=== PATIENT | male | born 1935 | race Caucasian/White ===

== ENCOUNTER 2017-07-01 07:04 | Day surgery (SDC) | payer MEDICARE ==
[~2017-07-01 07:04] MED LIST: Lactated Ringers 1,000 ML IV SCH; Lidocaine 1%/Sod Bicarbonate in NS 8.4% 1 ML Syringe IV PRN; Sodium Chloride 0.9% 10 ML Syringe FLUSH PRN
[2017-07-01] MEDS ORDERED: Propofol 200 MG/20 ML SDV ONE (07:25)
[2017-07-01] MEDS ORDERED: Lidocaine 1% 4 ML ONE (07:26)
--- NOTE | 2017-07-01 07:47 | PCM.PREANE ---
Preanesthetic Assessment - Procedure Proposed Procedure: Colonoscopy - Anesthesia/Transfusion/Family Hx Anesthesia History: Prior Anesthesia Without Reaction Family History of Anesthesia Reaction: No Transfusion History: Unknown Intubation History: Unknown - Review of Systems General: No Symptoms Pulmonary: No Symptoms Cardiovascular: No Symptoms Gastrointestinal: No Symptoms Neurological: Numbness (hands and feet ) Other: Reports: Diabetes (BS 115 ) - Physical Assessment NPO Status Date: 06/30/17 NPO Status Time: 22:00 Pulse: 78 O2 Sat by Pulse Oximetry: 97 Respiratory Rate: 16 Blood Pressure: 130/61 Temperature: 37.1 C Vital Signs: Last Vital Signs Temp 37.1 C 07/01/17 07:20 Pulse 78 07/01/17 07:20 Resp 16 07/01/17 07:20 BP 130/61 07/01/17 07:20 Pulse Ox 97 07/01/17 07:20 Height: 1.7 m Weight: 114.305 kg ASA Class: 2 Mental Status: Alert & Oriented x3 Dentition: Reports: Dentures (upper ), Missing Tooth/Teeth (poor dentition lower ), Caries Thyro-Mental Finger Breadths: 3 Mouth Opening Finger Breadths: 3 ROM/Head Extension: Full Lungs: Clear to Auscultation, Normal Respiratory Effort Cardiovascular: Regular Rate, Regular Rhythm - Allergies Allergies/Adverse Reactions: Allergies Allergy/AdvReac Type Severity Reaction Status Date / Time amiodarone Allergy Cannot Verified 06/27/17 16:14 Remember lisinopril [From Prinivil] Allergy Cannot Verified 06/27/17 16:14 Remember metformin Allergy Cannot Verified 06/27/17 16:14 Remember - Acknowledgements Anesthesia Type Planned: MAC Pt an Appropriate Candidate for the Planned Anesthesia: Yes Alternatives and Risks of Anesthesia Discussed w Pt/Guardian: Yes Pt/Guardian Understands and Agrees with Anesthesia Plan: Yes PreAnesthesia Questionnaire HEENT History: Reports: Hard of Hearing, Impaired Vision, Other (See Below) Other HEENT History: left ear hard of hearing, wears glasses, has hearing aids and dentures Cardiovascular History: Reports: CAD, High Cholesterol, Hypertension, Other ( See Below) Other Cardiovascular History: chest pain/costochondral pain, diastolic dysfunction Respiratory History: Reports: Sleep Apnea Gastrointestinal History: Reports: Gastritis, Hemorrhoids Genitourinary History: Reports: BPH, Other (See Below) Other Genitourinary History: hematuria TRIMMER SAWYER History: Reports: None Musculoskeletal History: Reports: Gout Neurological History: Reports: CVA Psychiatric History: Reports: None Endocrine/Metabolic History: Reports: Diabetes, Type II Hematologic History: Reports: None Immunologic History: Reports: None Oncologic (Cancer) History: Reports: None Dermatologic History: - Past Surgical History Head Surgeries/Procedures: Reports: None Cardiovascular Surgical History: Reports: Coronary Artery Bypass Respiratory Surgical History: Reports: None GI Surgical History: Reports: Colonoscopy, Hernia Repair/Other Female Surgical History: Reports: None Male Surgical History: Reports: None Endocrine Surgical History: Reports: None Musculoskeletal Surgical History: Reports: Other (See Below) Other Musculoskeletal Surgeries/Procedures:: knee arthroscopy x 2 Dermatological Surgical History: Reports: Skin Graft - SUBSTANCE USE Smoking Status *Q: Never Smoker Second Hand Smoke Exposure: No Days Per Week of Alcohol Use: 0 Recreational Drug Use History: No - HOME MEDS Home Medications: Home Meds Allopurinol [Zyloprim] 300 mg PO DAILY 10/18/14 [History] Clopidogrel [Plavix] 75 mg PO DAILY 10/18/14 [History] Furosemide [Lasix] 80 mg PO BID 10/18/14 [History] Insulin Aspart [NovoLOG] 10 unit SUBCUT KAYLA 10/18/14 [History] Insulin Aspart [NovoLOG] 24 unit SUBCUT PCDINNER 10/18/14 [History] Insulin Aspart [NovoLOG] 28 unit SUBCUT BRK 10/18/14 [History] Insulin Glarg,Human.Rec.Analog [Lantus] 44 unit SUBCUT BID 10/18/14 [History] Losartan [Cozaar] 12.5 mg PO DAILY 10/18/14 [History] Metoprolol Tartrate [Lopressor] 25 mg PO BID 10/18/14 [History] Naproxen Sodium [Aleve] 220 mg PO DAILY PRN 10/18/14 [History] Potassium Chloride [Klor-Con] 20 meq PO BID 10/18/14 [History] Tamsulosin HCl [Flomax] 0.4 mg PO DAILY 10/18/14 [History] Nitroglycerin [Nitrostat] 0.4 mg SL Q5M PRN 11/02/14 [History] Sennosides/Docusate Sodium [Senna-Docusate Sodium Tablet] 2 tab PO BEDTIME 11/02 [History] Cholecalciferol (Vitamin D3) [Vitamin D3] 1,000 unit PO DAILY 06/27/17 [History] Hydrocortisone Acetate 25 mg RECTAL BEDTIME 06/27/17 [History] Isosorbide Mononitrate [Imdur] 30 mg PO DAILY 06/27/17 [History] Metolazone [Metolazone] 2.5 mg PO MOWEFR 06/27/17 [History] Simvastatin [Zocor] 40 mg PO DAILY 06/27/17 [History] Spironolactone [Aldactone] 25 mg PO QAM 06/27/17 [History] - CURRENT (IN HOUSE) MEDS Current Meds: Current Medications Lactated Ringer's (Ringers, Lactated) 1,000 mls @ 125 mls/hr IV ASDIRECTED PHILIP Stop: 07/01/17 23:00 Lidocaine/Sodium Bicarbonate (Buffered Lidocaine 1% In Ns 8.4%) 0.25 ml IV ONETIME PRN PRN Reason: Prior to IV Start Stop: 07/01/17 18:00 Sodium Chloride (Saline Flush) 10 ml FLUSH ASDIRECTED PRN PRN Reason: Keep Vein Open Stop: 07/01/17 18:00 Discontinued Medications Lidocaine HCl (Xylocaine-Mpf 1%) Confirm Administered Dose 4 mls @ as directed .ROUTE .STK-MED ONE Stop: 07/01/17 07:27 Propofol (Diprivan 20 Ml) Confirm Administered Dose 200 mg .ROUTE .STK-MED ONE Stop: 07/01/17 07:26
--- NOTE | 2017-07-01 08:04 | PCM.SN ---
- Free Text/Narrative Note: Addendum TO preop note: Mallampati Score 4 ASA should read :3
[2017-07-01] MEDS ORDERED: Phenylephrine/Normal Saline 100 MCG/ML 10 ML Syringe ONE (08:21)
--- NOTE | 2017-07-01 08:46 | PCM.OPNOTE ---
- General Post-Op/Procedure Note Date of Surgery/Procedure: 07/01/17 Operative Procedure(s): colonosocopy to cecum with hemorrhoid banding times 2 Pre Op Diagnosis: rectal bleeding Post-Op Diagnosis: Same Anesthesia Technique: MAC Primary Surgeon: Carlos Valentino EBL in mLs: 0 Complications: None Condition: Good
--- NOTE | 2017-07-01 08:50 | PCM48HPAN ---
Post Anesthesia Note - EVALUATION WITHIN 48HRS OF ANESTHETIC Vital Signs in Normal Range: Yes Patient Participated in Evaluation: Yes Respiratory Function Stable: Yes Airway Patent: Yes Cardiovascular Function Stable: Yes Hydration Status Stable: Yes Pain Control Satisfactory: Yes Nausea and Vomiting Control Satisfactory: Yes Mental Status Recovered: Yes
[2017-07-01 09:16] VITALS: BP 91/57
--- NOTE | 2017-07-01 15:22 | OR ---
DATE OF OPERATION: 07/01/2017 SURGEON: Carlos Valentino MD PREOPERATIVE DIAGNOSIS: Rectal bleeding. POSTOPERATIVE DIAGNOSIS: Rectal bleeding. OPERATION PERFORMED: Colonoscopy to cecum with hemorrhoid banding x2. FINDINGS: Internal hemorrhoids. There were no angiodysplasias, neoplasias, large tumor masses, ulcerations, or diverticulum. ANESTHESIA: Procedure done under IV sedation. DESCRIPTION OF PROCEDURE: The patient was taken to the endoscopy room, placed in the supine position, connected to monitoring equipment, and given IV sedation. He was placed in left lateral position. Perianal area was inspected and was unremarkable. Rectal exam showed good sphincter tone. A video Olympus colonoscope was then introduced into the rectum and threaded up without problem to the cecum, where the ileocecal valve and appendicular orifice were noted. The prep was excellent. [place] cleansing score grade B. The scope was slowly withdrawn showing the cecum, ascending colon, transverse colon, descending colon, sigmoid colon, and rectum. Retroflexed view was done showing internal hemorrhoids. Anoscope was then inserted and using a electronic assembler group leader, 2 hemorrhoids were banded. The patient tolerated the procedure and will be followed up in the clinic. Started on sitz baths and stool softeners. ESTIMATED BLOOD LOSS: MMODAL /[id number]
== END 2017-07-01 09:22 | disposition home or self-care (01) ==
LOC: JD.SDS 07:04
PROVIDERS: ATTEND Surgery
DX: K64.8 Other hemorrhoids (principal); K62.5 Hemorrhage of anus and rectum; K59.09 Other constipation; I25.10 Atherosclerotic heart disease of native coronary artery without angina pectoris; E78.00 Pure hypercholesterolemia, unspecified; I10 Essential (primary) hypertension; G47.30 Sleep apnea, unspecified; N40.0 Benign prostatic hyperplasia without lower urinary tract symptoms; M10.9 Gout, unspecified; E11.9 Type 2 diabetes mellitus without complications; H91.92 Unspecified hearing loss, left ear; Z86.73 Personal history of transient ischemic attack (TIA), and cerebral infarction without residual deficits; Z88.8 Allergy status to other drugs, medicaments and biological substances; Z79.01 Long term (current) use of anticoagulants; Z79.4 Long term (current) use of insulin; Z79.899 Other long term (current) drug therapy; Z97.4 Presence of external hearing-aid; Z95.1 Presence of aortocoronary bypass graft; Z98.42 Cataract extraction status, left eye; Z98.41 Cataract extraction status, right eye; Z98.890 Other specified postprocedural states
CPT/HCPCS: 45398; J7120; 00810; J2704

== ENCOUNTER 2017-12-26 13:50 | Inpatient (IN) | payer MEDICARE ==
--- NOTE | 2017-12-26 14:35 | EDM.PDOC ---
ED HPI GENERAL MEDICAL PROBLEM - General Chief Complaint: Lower Extremity Injury/Pain Stated Complaint: LEG ISSUES-SENT BY CLINIC Time Seen by Provider: 12/26/17 14:18 Source of Information: Reports: Patient History Limitations: Reports: No Limitations - History of Present Illness INITIAL COMMENTS - FREE TEXT/NARRATIVE: Patient is a 82-year-old male presents ED complaining of lower extremity swelling with redness, weaping of clear fluid, and mild pain. States this has been an ongoing issue for the past almost year. States last year developed increased swelling to his lower extremities with open wounds. Was seen by physical therapy with application of ointment with dressing with complete resolution. He has been wearing compression stockings as of recent. States over the last few months the redness and swelling along with a weeping has worsened. states at times the drainage from his lower extremities is so bad that it collects in his shoes and she is able to pour it out. Again symptoms are chronic with no new symptoms. He was evaluated by Dr. Abbie Mascorro PCP today with concerns of cellulitis. Dr. Mascorro did speak with Dr. Pamela Carmona and stated the patients legs did not look like this appropriately 3 months ago. Patient is non compliant challenging patient. She stated the swelling over the past three months has worsened. She is concerned he may have bilateral cellulitis. Patient admits to itching his lower legs quite frequently. Denies increasing SOB, Cough, PND, Orthopnea, CP, n/v, fevers , night sweats, and or any additional complaints. Past medical history: Type 2 diabetes with long-term current use of insulin. Last hemoglobin A1c 8.0. Essential hypertension Hypercholesterolemia Diastolic dysfunction CVA Lesion of the bladder Gout CAD Obstructive sleep apnea Current medications include: Allopurinol, Plavix, Lasix, metoprolol, Zocor, Flomax, NovoLog, potassium chloride, Imdur, Zaroxolyn, Levemir, losartan, MiraLAX, Aldactone, nitroglycerin, naproxen, Silvadene, mupirocin. - Related Data Allergies Allergy/AdvReac Type Severity Reaction Status Date / Time amiodarone Allergy Cannot Verified 12/26/17 21:00 Remember lisinopril [From Prinivil] Allergy Cannot Verified 12/26/17 21:00 Remember metformin Allergy Cannot Verified 12/26/17 21:00 Remember Home Meds: Home Meds Allopurinol [Zyloprim] 300 mg PO DAILY 10/18/14 [History] Clopidogrel [Plavix] 75 mg PO DAILY 10/18/14 [History] Furosemide [Lasix] 80 mg PO BID 10/18/14 [History] Insulin Aspart [NovoLOG] 16 unit SUBCUT KAYLA 10/18/14 [History] Insulin Aspart [NovoLOG] 28 unit SUBCUT PCDINNER 10/18/14 [History] Insulin Aspart [NovoLOG] 34 unit SUBCUT BRK 10/18/14 [History] Losartan [Cozaar] 12.5 mg PO DAILY 10/18/14 [History] Metoprolol Tartrate [Lopressor] 25 mg PO BID 10/18/14 [History] Naproxen Sodium [Aleve] 220 mg PO DAILY PRN 10/18/14 [History] Potassium Chloride [Klor-Con] 20 meq PO BID 10/18/14 [History] Tamsulosin HCl [Flomax] 0.4 mg PO DAILY 10/18/14 [History] Nitroglycerin [Nitrostat] 0.4 mg SL Q5M PRN 11/02/14 [History] Sennosides/Docusate Sodium [Senna-Docusate Sodium Tablet] 2 tab PO BEDTIME 11/02 [History] Cholecalciferol (Vitamin D3) [Vitamin D3] 1,000 unit PO DAILY 06/27/17 [History] Isosorbide Mononitrate [Imdur] 30 mg PO DAILY 06/27/17 [History] Metolazone 2.5 mg PO MOWEFR 06/27/17 [History] Simvastatin [Zocor] 40 mg PO DAILY 06/27/17 [History] Spironolactone [Aldactone] 25 mg PO QAM 06/27/17 [History] Insulin Detemir [Levemir] 44 unit SQ BID 12/26/17 [History] Polyethylene Glycol 3350 [Miralax] 17 gm PO Q72H 12/26/17 [History] Silver Sulfadiazine [Silvadene 1% Cream 20 GM] 1 applic TOP BID PRN 12/26/17 [ History] Past Medical History HEENT History: Reports: Hard of Hearing, Impaired Vision, Other (See Below) Other HEENT History: left ear hard of hearing, wears glasses, has hearing aids and dentures Cardiovascular History: Reports: CAD, High Cholesterol, Hypertension, Other ( See Below) Other Cardiovascular History: chest pain/costochondral pain, diastolic dysfunction Respiratory History: Reports: Sleep Apnea Gastrointestinal History: Reports: Gastritis, Hemorrhoids Genitourinary History: Reports: BPH, Other (See Below) Other Genitourinary History: hematuria CERTIFIED LOW VISION THERAPIST History: Reports: None Musculoskeletal History: Reports: Gout Neurological History: Reports: CVA Psychiatric History: Reports: None Endocrine/Metabolic History: Reports: Diabetes, Type II Hematologic History: Reports: None Immunologic History: Reports: None Oncologic (Cancer) History: Reports: None Dermatologic History: - Past Surgical History Head Surgeries/Procedures: Reports: None Cardiovascular Surgical History: Reports: Coronary Artery Bypass Respiratory Surgical History: Reports: None GI Surgical History: Reports: Colonoscopy, Hernia Repair/Other Female Surgical History: Reports: None Male Surgical History: Reports: None Endocrine Surgical History: Reports: None Musculoskeletal Surgical History: Reports: Other (See Below) Other Musculoskeletal Surgeries/Procedures:: knee arthroscopy x 2 Dermatological Surgical History: Reports: Skin Graft Social & Family History - Caffeine Use Caffeine Use: Reports: Coffee, Soda Review of Systems - Review of Systems Review Of Systems: ROS reveals no pertinent complaints other than HPI. ED EXAM, GENERAL - Physical Exam Exam: See Below Exam Limited By: No Limitations General Appearance: Alert, WD/WN, No Apparent Distress Ears: Hearing Grossly Normal Nose: Normal Inspection Throat/Mouth: Normal Voice, No Airway Compromise Head: Atraumatic, Normocephalic Neck: Normal Inspection, Supple Respiratory/Chest: No Respiratory Distress, Lungs Clear, Normal Breath Sounds, No Accessory Muscle Use, Chest Non-Tender Cardiovascular: Normal Peripheral Pulses, Regular Rate, Rhythm, No Murmur Peripheral Pulses: 2+: Posterior Tibial (L), Posterior Tibial (R), 4+: Radial (L ), Radial (R) GI/Abdominal: Normal Bowel Sounds, Soft, Non-Tender, No Organomegaly, No Distention Extremities: Normal Inspection, Pedal Edema Neurological: Alert, Oriented, CN II-XII Intact, Normal Cognition, No Motor/ Sensory Deficits Psychiatric: Normal Affect, Normal Mood Skin Exam: Warm, Dry, Other (Pedal edema noted to the lower extremities bilaterally with sharply demarcated area to the both legs mid calf with increased redness, weeping, and pain with palpation. No redness streaking up his legs. No sensory changes. ) Course - Vital Signs Last Recorded V/S: Last Vital Signs Temp 98.6 F 12/26/17 14:06 Pulse 59 L 12/26/17 14:06 Resp 16 12/26/17 14:06 BP 140/62 12/26/17 14:06 Pulse Ox 97 12/26/17 14:06 - Orders/Labs/Meds Orders: Active Orders 24 hr Category Date Time Status Blood Glucose Check, Bedside [RC] QIDACANDBED Care 12/26/17 20:05 Active Cardiac Monitoring [RC] INTERMITTENT Care 12/26/17 20:07 Active Height and Weight [RC] 04 Care 12/26/17 20:05 Active Intake and Output [RC] 04,16 Care 12/26/17 20:06 Active May Shower [RC] ASDIRECTED Care 12/26/17 20:05 Active Oxygen Therapy [RC] PRN Care 12/26/17 20:05 Active Pulse Oximetry [RC] PRN Care 12/26/17 20:07 Active Up ad Joann [RC] ASDIRECTED Care 12/26/17 20:05 Active Up to Chair [RC] ASDIRECTED Care 12/26/17 20:05 Active VTE/DVT Education [RC] BID Care 12/26/17 20:05 Active Vital Signs [RC] Q4HR Care 12/26/17 20:05 Active Consult to Case Management [CONS] Routine Cons 12/26/17 20:05 Active Consult to Diabetic Nurse Specialist [CONS] Routine Cons 12/26/17 20:05 Active Consult to Engineering Model Maker [CONS] Routine Cons 12/26/17 20:05 Active Consult to [employer] [CONS] Routine Cons 12/26/17 20:05 Active Consult to Spiritual Care [CONS] Routine Cons 12/26/17 20:05 Active OT Evaluation and Treatment [CONS] Routine Cons 12/26/17 20:05 Active PT Evaluation and Treatment [CONS] Routine Cons 12/26/17 20:05 Active Respiratory Care Assess and Treatment [CONS] Routine Cons 12/26/17 20:05 Active Heart Healthy Diet [DIET] Diet 12/27/17 Breakfast Active CXR [Chest 1V Frontal] [CR] Stat Exams 12/26/17 16:14 Taken BASIC METABOLIC PANEL,BMP [CHEM] AM Lab 12/27/17 05:11 Ordered BASIC METABOLIC PANEL,BMP [CHEM] AM Lab 12/28/17 05:11 Ordered BASIC METABOLIC PANEL,BMP [CHEM] AM Lab 12/29/17 05:11 Ordered BASIC METABOLIC PANEL,BMP [CHEM] AM Lab 12/30/17 05:11 Ordered BASIC METABOLIC PANEL,BMP [CHEM] AM Lab 12/31/17 05:11 Ordered C-REACTIVE PROTEIN [CHEM] AM Lab 12/27/17 05:11 Ordered C-REACTIVE PROTEIN [CHEM] AM Lab 12/28/17 05:11 Ordered C-REACTIVE PROTEIN [CHEM] AM Lab 12/29/17 05:11 Ordered C-REACTIVE PROTEIN [CHEM] AM Lab 12/30/17 05:11 Ordered C-REACTIVE PROTEIN [CHEM] AM Lab 12/31/17 05:11 Ordered CBC WITH AUTO DIFF [HEME] AM Lab 12/27/17 05:11 Ordered CBC WITH AUTO DIFF [HEME] AM Lab 12/28/17 05:11 Ordered CBC WITH AUTO DIFF [HEME] AM Lab 12/29/17 05:11 Ordered CBC WITH AUTO DIFF [HEME] AM Lab 12/30/17 05:11 Ordered CBC WITH AUTO DIFF [HEME] AM Lab 12/31/17 05:11 Ordered CULTURE BLOOD [BC] Stat Lab 12/26/17 15:48 Received CULTURE BLOOD [BC] Stat Lab 12/26/17 16:50 Received MAGNESIUM [CHEM] AM Lab 12/27/17 05:11 Ordered MAGNESIUM [CHEM] AM Lab 12/28/17 05:11 Ordered MAGNESIUM [CHEM] AM Lab 12/29/17 05:11 Ordered MAGNESIUM [CHEM] AM Lab 12/30/17 05:11 Ordered MAGNESIUM [CHEM] AM Lab 12/31/17 05:11 Ordered METH-RESIST S.AUR,MRSA BY PCR [MOLEC] Routine Lab 12/26/17 21:21 Received UA W/MICROSCOPIC [URIN] Stat Lab 12/26/17 13:54 Ordered Acetaminophen [Tylenol] Med 12/26/17 20:05 Active 650 mg PO Q4H PRN Acetaminophen/HYDROcodone [[employer] 325-5 MG] Med 12/26/17 20:05 Active 1 tab PO Q4H PRN Bisacodyl [Dulcolax] Med 12/26/17 20:05 Active 5 mg PO DAILY PRN Docusate Sodium [Colace] Med 12/26/17 20:05 Active 100 mg PO BID PRN Docusate Sodium/Sennosides [Senna Plus] Med 12/26/17 20:05 Active 1 tab PO BID PRN Enoxaparin [Lovenox] Med 12/27/17 09:00 Active 30 mg SUBCUT DAILY Magnesium Hydroxide [Milk of Magnesia] Med 12/26/17 20:05 Active 30 ml PO Q12H PRN Morphine Med 12/26/17 20:05 Active 2 mg IVPUSH Q2H PRN Ondansetron [Zofran ODT] Med 12/26/17 20:05 Active 4 mg PO Q4H PRN Ondansetron [Zofran] Med 12/26/17 20:05 Active 4 mg IV Q4H PRN Polyethylene Glycol 3350 [MiraLAX] Med 12/26/17 20:05 Active 17 gm PO DAILY PRN Sodium Chloride 0.9% [Saline Flush] Med 12/26/17 13:54 Active 10 ml FLUSH ASDIRECTED PRN Temazepam [Restoril] Med 12/26/17 20:05 Active 7.5 mg PO BEDTIME PRN Blood Culture x2 Reflex Set [OM.PC] Stat Oth 12/26/17 13:54 Ordered Peripheral IV Insertion Adult [OM.PC] Routine Oth 12/26/17 13:54 Ordered Medication Orders Acetaminophen (Tylenol) 650 mg PO Q4H PRN PRN Reason: Pain (Mild 1-3)/fever Hydrocodone Bitart/Acetaminophen ([employer] 325-5 Mg) 1 tab PO Q4H PRN PRN Reason: Pain (moderate 4-6) Allopurinol (Zyloprim) 300 mg PO DAILY [facility] Bisacodyl (Dulcolax) 5 mg PO DAILY PRN PRN Reason: Constipation Cholecalciferol (Vitamin D3) 1,000 units PO DAILY [facility] Clopidogrel Bisulfate (Plavix) 75 mg PO DAILY [facility] Docusate Sodium (Colace) 100 mg PO BID PRN PRN Reason: Constipation Enoxaparin Sodium (Lovenox) 30 mg SUBCUT DAILY [facility] Famotidine (Pepcid) 20 mg PO BID [facility] Furosemide (Lasix) 80 mg PO BIDDIURETIC [facility] Hydralazine HCl (Apresoline) 10 mg IVPUSH Q4H PRN PRN Reason: Hypertension Furosemide 100 mg/ Sodium (Chloride) 100 mls @ 4 mls/hr IV ASDIRECTED [facility] Vancomycin HCl 1 gm/Vancomycin HCl 250 mg/ Sodium Chloride 250 mls @ 250 mls/ hr IV Q24H [facility] Vancomycin HCl 1 gm/ Sodium (Chloride) 250 mls @ 250 mls/hr IV ONETIME ONE Stop: 12/26/17 23:29 Vancomycin HCl 1 gm/ Sodium (Chloride) 250 mls @ 250 mls/hr IV ONETIME ONE Stop: 12/27/17 00:29 Insulin Aspart (Novolog) 16 unit SUBCUT KAYLA [facility] Insulin Aspart (Novolog) 28 unit SUBCUT PCDINNER [facility] Insulin Aspart (Novolog) 34 unit SUBCUT BRK [facility] Insulin Detemir (Levemir) 44 unit SUBCUT BID [facility] Isosorbide Mononitrate (Imdur) 30 mg PO DAILY [facility] Losartan Potassium (Cozaar) 12.5 mg PO DAILY [facility] Magnesium Hydroxide (Milk Of Magnesia) 30 ml PO Q12H PRN PRN Reason: Constipation Metolazone (Zaroxolyn) 2.5 mg PO MoWeFr@0700 [facility] Metoprolol Tartrate (Lopressor) 25 mg PO BID [facility] Morphine Sulfate (Morphine) 2 mg IVPUSH Q2H PRN PRN Reason: Pain (severe 7-10) Stop: 12/27/17 20:08 Ondansetron HCl (Zofran Odt) 4 mg PO Q4H PRN PRN Reason: nausea, able to take PO Ondansetron HCl (Zofran) 4 mg IV Q4H PRN PRN Reason: Nausea/Vomiting Polyethylene Glycol (Miralax) 17 gm PO DAILY PRN PRN Reason: Constipation Potassium Chloride (Klor-Con M20) 20 meq PO BIDMEALS [facility] Saccharomyces Boulardii (Florastor) 250 mg PO BID [facility] Senna/Docusate Sodium (Senna Plus) 1 tab PO BID PRN PRN Reason: Constipation Silver Sulfadiazine (Silvadene 1% Cream 50 Gm) 0 gm TOP BID [facility] Simvastatin (Zocor) 40 mg PO DAILY [facility] Sodium Chloride (Saline Flush) 10 ml FLUSH ASDIRECTED PRN PRN Reason: Keep Vein Open Last Admin: 12/26/17 17:28 Dose: 10 ml Spironolactone (Aldactone) 25 mg PO QAM [facility] Tamsulosin HCl (Flomax) 0.4 mg PO DAILY [facility] Temazepam (Restoril) 7.5 mg PO BEDTIME PRN PRN Reason: Sleep Vancomycin HCl (Pharmacy To Dose - Vancomycin) 1 dose .XX ASDIRECTED [facility] Labs: Laboratory Tests 12/26/17 12/26/17 12/26/17 Range/Units 14:17 14:56 14:56 WBC 10.93 H (4.23-9.07) K/mm3 RBC 3.92 L (4.63-6.08) M/mm3 Hgb 11.5 L (13.7-17.5) gm/L Hct 35.0 L (40.1-51.0) % MCV 89.3 (79.0-92.2) fl MCH 29.3 (25.7-32.2) pg MCHC 32.9 (32.2-35.5) g/dl RDW Std Deviation 50.8 H (35.1-43.9) fL Plt Count 208 (163-337) K/mm3 MPV 9.3 L (9.4-12.3) fl Neut % (Auto) 75.2 H (34.0-67.9) % Lymph % (Auto) 13.0 L (21.8-53.1) % [place] % (Auto) 9.7 (5.3-12.2) % Eos % (Auto) 1.6 (0.8-7.0) Baso % (Auto) 0.4 (0.1-1.2) % Neut # (Auto) 8.23 H (1.78-5.38) K/mm3 Lymph # (Auto) 1.42 (1.32-3.57) K/mm3 [place] # (Auto) 1.06 H (0.30-0.82) K/mm3 Eos # (Auto) 0.17 (0.04-0.54) K/mm3 Baso # (Auto) 0.04 (0.01-0.08) K/mm3 PT 11.2 (9.5-12.1) SECONDS INR 1.03 Sodium (136-145) mEq/L Potassium (3.5-5.1) mEq/L Chloride (98-107) mEq/L Carbon Dioxide (21-32) mEq/L Anion Gap (5-15) BUN (7-18) mg/dL Creatinine (0.7-1.3) mg/dL Est Cr Clr Drug Dosing mL/min Estimated GFR (MDRD) (>60) mL/min BUN/Creatinine Ratio (14-18) Glucose (83-115) mg/dL Lactic Acid (0.4-2.0) mmol/L Calcium (8.5-10.1) mg/dL Magnesium (1.8-2.4) mg/dl Total Bilirubin (0.2-1.0) mg/dL AST (15-37) U/L ALT (16-63) U/L Alkaline Phosphatase (46-116) U/L Troponin I (0.00-0.056) ng/mL C-Reactive Protein 2.7 H* (<1.0) mg/dL NT-Pro-B Natriuret Pep (0-450) pg/mL Total Protein (6.4-8.2) g/dl Albumin (3.4-5.0) g/dl Globulin gm/dL Albumin/Globulin Ratio (1-2) 12/26/17 12/26/17 12/26/17 Range/Units 14:56 14:56 15:48 WBC (4.23-9.07) K/mm3 RBC (4.63-6.08) M/mm3 Hgb (13.7-17.5) gm/L Hct (40.1-51.0) % MCV (79.0-92.2) fl MCH (25.7-32.2) pg MCHC (32.2-35.5) g/dl RDW Std Deviation (35.1-43.9) fL Plt Count (163-337) K/mm3 MPV (9.4-12.3) fl Neut % (Auto) (34.0-67.9) % Lymph % (Auto) (21.8-53.1) % [place] % (Auto) (5.3-12.2) % Eos % (Auto) (0.8-7.0) Baso % (Auto) (0.1-1.2) % Neut # (Auto) (1.78-5.38) K/mm3 Lymph # (Auto) (1.32-3.57) K/mm3 [place] # (Auto) (0.30-0.82) K/mm3 Eos # (Auto) (0.04-0.54) K/mm3 Baso # (Auto) (0.01-0.08) K/mm3 PT (9.5-12.1) SECONDS INR Sodium 138 (136-145) mEq/L Potassium 3.6 (3.5-5.1) mEq/L Chloride 102 (98-107) mEq/L Carbon Dioxide 25 (21-32) mEq/L Anion Gap 14.6 (5-15) BUN 46 H (7-18) mg/dL Creatinine 1.6 H (0.7-1.3) mg/dL Est Cr Clr Drug Dosing 32.69 mL/min Estimated GFR (MDRD) 41 (>60) mL/min BUN/Creatinine Ratio 28.8 H (14-18) Glucose 99 (83-115) mg/dL Lactic Acid 2.4 H (0.4-2.0) mmol/L Calcium 9.2 (8.5-10.1) mg/dL Magnesium 2.5 H (1.8-2.4) mg/dl Total Bilirubin 0.6 (0.2-1.0) mg/dL AST 19 (15-37) U/L ALT 29 (16-63) U/L Alkaline Phosphatase 53 (46-116) U/L Troponin I < 0.017 (0.00-0.056) ng/mL C-Reactive Protein (<1.0) mg/dL NT-Pro-B Natriuret Pep 2039 H (0-450) pg/mL Total Protein 7.7 (6.4-8.2) g/dl Albumin 3.2 L (3.4-5.0) g/dl Globulin 4.5 gm/dL Albumin/Globulin Ratio 0.7 L (1-2) Meds: Medications Generic Name Dose Route Start Last Admin Trade Name Freq PRN Reason Stop Dose Admin Acetaminophen 650 mg 12/26/17 20:05 Tylenol PO Q4H PRN Pain (Mild 1-3)/fever Hydrocodone Bitart/Acetaminophen 1 tab 12/26/17 20:05 [employer] 325-5 Mg PO Q4H PRN Pain (moderate 4-6) Allopurinol 300 mg 12/27/17 09:00 Zyloprim PO DAILY [facility] Bisacodyl 5 mg 12/26/17 20:05 Dulcolax PO DAILY PRN Constipation Cholecalciferol 1,000 units 12/27/17 09:00 Vitamin D3 PO DAILY [facility] Clopidogrel Bisulfate 75 mg 12/27/17 09:00 Plavix PO DAILY [facility] Docusate Sodium 100 mg 12/26/17 20:05 Colace PO BID PRN Constipation Enoxaparin Sodium 30 mg 12/27/17 09:00 Lovenox SUBCUT DAILY [facility] Famotidine 20 mg 12/27/17 09:00 Pepcid PO BID [facility] Furosemide 80 mg 12/26/17 21:00 Lasix PO BIDDIURETIC [facility] Hydralazine HCl 10 mg 12/26/17 20:28 Apresoline IVPUSH Q4H PRN Hypertension Furosemide 100 mg/ Sodium 100 mls @ 4 mls/hr 12/27/17 09:00 Chloride IV ASDIRECTED [facility]ILIP 4 MG/HR Vancomycin HCl 1 gm/ 250 mls @ 250 mls/hr 12/27/17 21:00 Vancomycin HCl 250 mg/ Sodium IV Chloride Q24H [facility] Vancomycin HCl 1 gm/ Sodium 250 mls @ 250 mls/hr 12/26/17 22:30 Chloride IV 12/26/17 23:29 ONETIME ONE Vancomycin HCl 1 gm/ Sodium 250 mls @ 250 mls/hr 12/26/17 23:30 Chloride IV 12/27/17 00:29 ONETIME ONE Insulin Aspart 16 unit 12/27/17 11:00 Novolog SUBCUT KAYLA [facility] Insulin Aspart 28 unit 12/27/17 19:00 Novolog SUBCUT PCDINNER [facility] Insulin Aspart 34 unit 12/27/17 07:00 Novolog SUBCUT BRK [facility] Insulin Detemir 44 unit 12/26/17 21:00 Levemir SUBCUT BID [facility] Isosorbide Mononitrate 30 mg 12/27/17 09:00 Imdur PO DAILY [facility] Losartan Potassium 12.5 mg 12/27/17 09:00 Cozaar PO DAILY [facility] Magnesium Hydroxide 30 ml 12/26/17 20:05 Milk Of Magnesia PO Q12H PRN Constipation Metolazone 2.5 mg 12/27/17 07:00 Zaroxolyn PO MoWeFr@0700 [facility] Metoprolol Tartrate 25 mg 12/26/17 21:00 Lopressor PO BID [facility] Morphine Sulfate 2 mg 12/26/17 20:05 Morphine IVPUSH 12/27/17 20:08 Q2H PRN Pain (severe 7-10) Ondansetron HCl 4 mg 12/26/17 20:05 Zofran Odt PO Q4H PRN nausea, able to take PO Ondansetron HCl 4 mg 12/26/17 20:05 Zofran IV Q4H PRN Nausea/Vomiting Polyethylene Glycol 17 gm 12/26/17 20:05 Miralax PO DAILY PRN Constipation Potassium Chloride 20 meq 12/26/17 21:00 Klor-Con M20 PO BIDMEALS [facility] Saccharomyces Boulardii 250 mg 12/27/17 09:00 Florastor PO BID [facility] Senna/Docusate Sodium 1 tab 12/26/17 20:05 Senna Plus PO BID PRN Constipation Silver Sulfadiazine 0 gm 12/26/17 21:00 Silvadene 1% Cream 50 Gm TOP BID [facility] Simvastatin 40 mg 12/27/17 09:00 Zocor PO DAILY [facility] Sodium Chloride 10 ml 12/26/17 13:54 12/26/17 17:28 Saline Flush FLUSH 10 ml ASDIRECTED PRN Administration Keep Vein Open Spironolactone 25 mg 12/27/17 08:00 Aldactone PO QAM [facility] Tamsulosin HCl 0.4 mg 12/27/17 09:00 Flomax PO DAILY [facility] Temazepam 7.5 mg 12/26/17 20:05 Restoril PO BEDTIME PRN Sleep Vancomycin HCl 1 dose 12/27/17 09:00 Pharmacy To Dose - Vancomycin .XX ASDIRECTED [facility] Discontinued Medications Generic Name Dose Route Start Last Admin Trade Name Freq PRN Reason Stop Dose Admin Ceftriaxone Sodium 2 gm/ 0 gm 12/26/17 17:12 12/26/17 17:27 Lidocaine HCl 4.2 ml IM 12/26/17 17:13 2 inj ONETIME ONE Administration Enoxaparin Sodium 40 mg 12/27/17 09:00 Lovenox SUBCUT DAILY [facility] Ceftriaxone Sodium 2 gm/ 100 mls @ 200 mls/hr 12/26/17 16:06 12/26/17 18:11 Sodium Chloride IV 12/26/17 16:35 Not Given ONETIME ONE Lidocaine HCl Confirm 12/26/17 17:37 Xylocaine-Mpf 1% Administered 12/26/17 17:38 Dose 8 mls @ as directed .ROUTE .STK-MED ONE Vancomycin HCl 2 gm/ Sodium 250 mls @ 125 mls/hr 12/26/17 21:00 Chloride IV 12/26/17 22:59 ONETIME ONE Insulin Aspart 0 unit 12/26/17 22:00 Novolog SUBCUT QIDACANDBED [facility] Protocol Vancomycin HCl Confirm 12/26/17 22:05 Vancocin Administered 12/26/17 22:06 Dose 2 gm .ROUTE .STK-MED ONE - Re-Assessments/Exams Free Text/Narrative Re-Assessment/Exam: IV established. Initial lab studies will include: CBC, chem 14, blood cultures 2, lactic acid, magnesium, proBNP, coag studies, troponin, and UA. I did speak with Dr. Mascorro PCP. She stated the patients legs were quite a mess upon examination. Nursing staff cleaned patients legs prior to being discharged to the E.D. She states patients leg were not like this 3 months ago. She regularly sees him every three months. He is often noncompliant with medications. Is concerned he has cellulitis and may require further diuresis, and [place] [facility] placement. At the least would benefit to home health. Labs reviewed: White blood cell count 10.93, hemoglobin 11.5, neutrophil percent is 75.2, neutrophil number is 8.23. CMP indicated creatinine 1.6, BUN 46 , magnesium 2.5. Troponin normal, proBNP 2038. I have ordered rocephin 2 grams IV. 12/26/17 16:15 CXR and EKG were not ordered in error. CXR reviewed with Dr. Pamela Carmona mild increased pulmonary congestion with cardiomegaly. Per nursing staff no IV as of yet. Anesthesia is present and continues to attempt obtaining IV access. I have ordered the nursing staff to change rocephin to IM with lidocaine. 1735 IV established. 12/26/17 17:41 I did speak with Dr. Collins. She will see the patient in the E.D. EKG: A-fib/A-Flutter with variable conduction. No acute ST changes noted. Dr. Collins has agreed to admit patient. Requests MS with tele. Departure - Departure Time of Disposition: 16:15 Disposition: Admitted As Inpatient 64 Condition: Good Clinical Impression: Venous stasis dermatitis of both lower extremities, Elevated lactic acid level , Pedal edema Cellulitis Qualifiers: Site of cellulitis: extremity Site of cellulitis of extremity: lower extremity Laterality: unspecified laterality Qualified Code(s): L03.119 - Cellulitis of unspecified part of limb Diastolic heart failure Qualifiers: Heart failure chronicity: chronic Qualified Code(s): I50.32 - Chronic diastolic (congestive) heart failure - Discharge Information - My Orders Last 24 Hours: My Active Orders 12/26/17 16:14 CXR [Chest 1V Frontal] [CR] Stat - Assessment/Plan Last 24 Hours: My Active Orders 12/26/17 16:14 CXR [Chest 1V Frontal] [CR] Stat
[2017-12-26] MEDS ORDERED: cefTRIAXone 2 GM in Sodium Chloride 0.9% 100 ML IV ONE (16:06)
[2017-12-26] MEDS ORDERED: cefTRIAXone 2 GM, Lidocaine 1% 4.2 ML IM ONE ×2 (17:12)
[2017-12-26] MEDS: Sodium Chloride 0.9% 10 ML Syringe FLUSH PRN (17:28)
--- NOTE | 2017-12-26 17:33 | PCM.SN ---
- Free Text/Narrative Note: Anesthesia Note: Start: 1530 Stop: 1728 Anesthesia requested for IV start. 20 Gauge 1.88 inch placed via US guidance after multiple attempts. Site patent and intact and flushed easily with 20ml's normal saline. Blood acquired for blood cultures as well per doctors order. Patient tolerated procedure well. Sites localized with 1% lidocaine to make more tolerable.
[2017-12-26] MEDS ORDERED: Lidocaine 1% 8 ML ONE (17:37)
[2017-12-26] MEDS ORDERED: Docusate Sodium 100 MG Cap PO PRN (20:05)
[2017-12-26] MEDS ORDERED: Temazepam 7.5 MG Cap PO PRN (20:05)
[2017-12-26] MEDS ORDERED: Bisacodyl 5 MG Tab PO PRN (20:05)
[2017-12-26] MEDS ORDERED: Ondansetron 4 MG Tab.DIS PO PRN (20:05)
[2017-12-26] MEDS ORDERED: Magnesium Hydroxide 400 MG/5 ML Susp 30 ML Cup PO PRN (20:05)
[2017-12-26] MEDS ORDERED: Morphine 2 MG/ML Syringe IVPUSH PRN (20:05)
[2017-12-26] MEDS ORDERED: Polyethylene Glycol 3350 Powder 17 GM Packet PO PRN (20:05)
[2017-12-26] MEDS ORDERED: Acetaminophen 325 MG Tab PO PRN (20:05)
[2017-12-26] MEDS ORDERED: Ondansetron 4 MG/2 ML SDV IV PRN (20:05)
[2017-12-26] MEDS ORDERED: Acetaminophen/HYDROcodone 325-5 MG Tab PO PRN (20:05)
[2017-12-26] MEDS ORDERED: hydrALAZINE 20 MG/ML SDV IVPUSH PRN (20:28)
[2017-12-26] MEDS ORDERED: Silver Sulfadiazine 1% Crm 50 GM Tube TOP SCH (21:00)
[2017-12-26] MEDS ORDERED: Vancomycin 2 GM in Sodium Chloride 0.9% 500 ML IV ONE (21:08)
--- NOTE | 2017-12-26 21:38 | PCM.HP ---
H&P History of Present Illness - General Date of Service: 12/26/17 Admit Problem/Dx: Admission Diagnosis/Problem Admission Diagnosis/Problem Cellulitis Source of Information: Patient, Old Records, Provider History Limitations: Reports: No Limitations - History of Present Illness Initial Comments - Free Text/Narative: This is an 82 yo male with past medical h/o type 2 diabetes, hypertension, hypercholesterolemia, diastolic dysfunction, CVA, gout, CAD, obstructive sleep apnea who comes in for bilateral cellulitis of the lower extremities. Pain is mild. He reports no fever, chills, headache, nausea, vomiting, diarrhea, chest pain, shortness of breath, or GI/ complaints. His symptoms slightly improved after receiving 2g IV Rocephin in the ED. His initial workup in the ED showed a CBC remarkable for WBC 10.93, RBC 3.92, Hgb 11.5, HCT 35, RDW 50.8, MPV 9.3, Neut 75.2%, Lymph 13%. His coagulation study shows PT 11.2, INR 1.03. His chemistry is remarkable for BUN 46, CR 1.6, Lactic acid 2.4, Mag 2.5, CRP 2.7, BNP 2039, Albumin 3.2. Troponin was negative. EKG showed A-fib/A-Flutter with variable conduction, no acute ST changes. Chest X- ray shows mild increased pulmonary congestion with cardiomegaly. He is subsequently admitted to the medical floor. He is a DNR/DNI. His PCP is Dr. Abbie Mascorro at [place]. - Related Data Allergies/Adverse Reactions: Allergies Allergy/AdvReac Type Severity Reaction Status Date / Time amiodarone Allergy Cannot Verified 12/26/17 21:00 Remember lisinopril [From Prinivil] Allergy Cannot Verified 12/26/17 21:00 Remember metformin Allergy Cannot Verified 12/26/17 21:00 Remember Home Medications: Home Meds Allopurinol [Zyloprim] 300 mg PO DAILY 10/18/14 [History] Clopidogrel [Plavix] 75 mg PO DAILY 10/18/14 [History] Furosemide [Lasix] 80 mg PO BID 10/18/14 [History] Insulin Aspart [NovoLOG] 16 unit SUBCUT KAYLA 10/18/14 [History] Insulin Aspart [NovoLOG] 28 unit SUBCUT PCDINNER 10/18/14 [History] Insulin Aspart [NovoLOG] 34 unit SUBCUT BRK 10/18/14 [History] Losartan [Cozaar] 12.5 mg PO DAILY 10/18/14 [History] Metoprolol Tartrate [Lopressor] 25 mg PO BID 10/18/14 [History] Naproxen Sodium [Aleve] 220 mg PO DAILY PRN 10/18/14 [History] Potassium Chloride [Klor-Con] 20 meq PO BID 10/18/14 [History] Tamsulosin HCl [Flomax] 0.4 mg PO DAILY 10/18/14 [History] Nitroglycerin [Nitrostat] 0.4 mg SL Q5M PRN 11/02/14 [History] Sennosides/Docusate Sodium [Senna-Docusate Sodium Tablet] 2 tab PO BEDTIME 11/02 [History] Cholecalciferol (Vitamin D3) [Vitamin D3] 1,000 unit PO DAILY 06/27/17 [History] Isosorbide Mononitrate [Imdur] 30 mg PO DAILY 06/27/17 [History] Metolazone 2.5 mg PO MOWEFR 06/27/17 [History] Simvastatin [Zocor] 40 mg PO DAILY 06/27/17 [History] Spironolactone [Aldactone] 25 mg PO QAM 06/27/17 [History] Insulin Detemir [Levemir] 44 unit SQ BID 12/26/17 [History] Polyethylene Glycol 3350 [Miralax] 17 gm PO Q72H 12/26/17 [History] Silver Sulfadiazine [Silvadene 1% Cream 20 GM] 1 applic TOP BID PRN 12/26/17 [ History] Past Medical History HEENT History: Reports: Hard of Hearing, Impaired Vision, Other (See Below) Other HEENT History: left ear hard of hearing, wears glasses, has hearing aids and dentures Cardiovascular History: Reports: Bypass, CAD, High Cholesterol, Hypertension, Other (See Below) Other Cardiovascular History: chest pain/costochondral pain, diastolic dysfunction Respiratory History: Reports: Sleep Apnea, Other (See Below) Other Respiratory History: has cpap at home-doesn't wear Gastrointestinal History: Reports: Gastritis, Hemorrhoids Genitourinary History: Reports: BPH, Other (See Below) Other Genitourinary History: hematuria CUSTOM GRINDER History: Reports: None Musculoskeletal History: Reports: Gout Neurological History: Reports: CVA Psychiatric History: Reports: None Endocrine/Metabolic History: Reports: Diabetes, Type II Hematologic History: Reports: None Immunologic History: Reports: None Oncologic (Cancer) History: Reports: None Dermatologic History: - Infectious Disease History Infectious Disease History: Reports: Chicken Pox, Measles, Mumps - Past Surgical History Head Surgeries/Procedures: Reports: None HEENT Surgical History: Reports: Cataract Surgery Cardiovascular Surgical History: Reports: Coronary Artery Bypass Respiratory Surgical History: Reports: None GI Surgical History: Reports: Colonoscopy, Hernia Repair/Other Male Surgical History: Reports: None Endocrine Surgical History: Reports: None Neurological Surgical History: Reports: None Musculoskeletal Surgical History: Reports: Other (See Below) Other Musculoskeletal Surgeries/Procedures:: knee arthroscopy x 2 Dermatological Surgical History: Reports: Skin Graft Social & Family History - Family History Family Medical History: Noncontributory - Tobacco Use Smoking Status *Q: Never Smoker - Caffeine Use Caffeine Use: Reports: Coffee, Soda - Recreational Drug Use Recreational Drug Use: No H&P Review of Systems - Review of Systems: Review Of Systems: See Below General: Reports: No Symptoms. Denies: Fever, Chills, Weakness HEENT: Reports: No Symptoms Pulmonary: Reports: Other (h/o sleep apnea). Denies: Shortness of Breath, Wheezing, Cough Cardiovascular: Reports: Edema (both legs). Denies: Chest Pain, Palpitations Gastrointestinal: Reports: No Symptoms. Denies: Constipation, Diarrhea, Nausea , Vomiting Musculoskeletal: Reports: Leg Pain (mild) Skin: Reports: Pruritis (bilateral lower legs), Rash (bilateral lower legs), Erythema (bilateral lower legs), Wound (bilateral lower legs with purulent discharge), Other (fungal infection of toe nails both feet) Psychiatric: Reports: No Symptoms Neurological: Reports: No Symptoms Hematologic/Lymphatic: Reports: No Symptoms Immunologic: Reports: No Symptoms Exam - Exam Exam: See Below - Vital Signs Vital Signs: Last Vital Signs Temp 98.6 F 12/26/17 14:06 Pulse 59 L 12/26/17 14:06 Resp 16 12/26/17 14:06 BP 140/62 12/26/17 14:06 Pulse Ox 97 12/26/17 14:06 Weight: 262 lb 3.2 oz - Exam Quality Assessment: DVT Prophylaxis. No: Supplemental Oxygen General: Alert, Oriented, Cooperative, Mild Distress HEENT: PERRLA, Hearing Intact, Mucosa Moist & [place], Nares Patent, Normal Nasal Septum, Posterior Pharynx Clear, Conjunctiva Clear, EOMI, EACs Clear, TMs Clear Neck: Supple, Trachea Midline, 2 Lungs: Clear to Auscultation, Normal Respiratory Effort Cardiovascular: Regular Rate, Irregular Rhythm (Afib) GI/Abdominal Exam: Normal Bowel Sounds, Soft, Non-Tender, No Organomegaly, No Distention, No Abnormal Bruit, No Mass, Pelvis Stable (Male) Exam: Deferred Rectal (Males) Exam: Deferred Back Exam: Normal Inspection, Full Range of Motion, NT Extremities: Normal Range of Motion, Pedal Edema (2+ bilaterally), Slow Capillary Refill, Leg Pain (mildly ttp), Increased Warmth (lower legs bilaterally), Redness (lower legs bilaterally) Peripheral Pulses: 1+: Posterior Tibial (L), Posterior Tibial (R), Dorsalis Pedis (L), Dorsalis Pedis (R) Skin: Warm, Wound (lower legs bilaterally with purulent discharge), Other ( erythema in lower legs bilaterally) Neurological: Cranial Nerves Intact (grossly). No: Sensation Intact (plantar aspect of feet bilaterally) Neuro Extensive - Mental Status: Alert, Oriented x3, Normal Mood/Affect, Normal Cognition, Memory Intact Psychiatric: Alert, Normal Affect, Normal Mood - Patient Data Lab Results Last 24 hrs: Laboratory Results - last 24 hr 12/26/17 12/26/17 12/26/17 Range/Units 14:17 14:56 14:56 WBC 10.93 H (4.23-9.07) K/mm3 RBC 3.92 L (4.63-6.08) M/mm3 Hgb 11.5 L (13.7-17.5) gm/L Hct 35.0 L (40.1-51.0) % MCV 89.3 (79.0-92.2) fl MCH 29.3 (25.7-32.2) pg MCHC 32.9 (32.2-35.5) g/dl RDW Std Deviation 50.8 H (35.1-43.9) fL Plt Count 208 (163-337) K/mm3 MPV 9.3 L (9.4-12.3) fl Neut % (Auto) 75.2 H (34.0-67.9) % Lymph % (Auto) 13.0 L (21.8-53.1) % [place] % (Auto) 9.7 (5.3-12.2) % Eos % (Auto) 1.6 (0.8-7.0) Baso % (Auto) 0.4 (0.1-1.2) % Neut # (Auto) 8.23 H (1.78-5.38) K/mm3 Lymph # (Auto) 1.42 (1.32-3.57) K/mm3 [place] # (Auto) 1.06 H (0.30-0.82) K/mm3 Eos # (Auto) 0.17 (0.04-0.54) K/mm3 Baso # (Auto) 0.04 (0.01-0.08) K/mm3 PT 11.2 (9.5-12.1) SECONDS INR 1.03 Sodium (136-145) mEq/L Potassium (3.5-5.1) mEq/L Chloride (98-107) mEq/L Carbon Dioxide (21-32) mEq/L Anion Gap (5-15) BUN (7-18) mg/dL Creatinine (0.7-1.3) mg/dL Est Cr Clr Drug Dosing mL/min Estimated GFR (MDRD) (>60) mL/min BUN/Creatinine Ratio (14-18) Glucose (83-115) mg/dL Lactic Acid (0.4-2.0) mmol/L Calcium (8.5-10.1) mg/dL Magnesium (1.8-2.4) mg/dl Total Bilirubin (0.2-1.0) mg/dL AST (15-37) U/L ALT (16-63) U/L Alkaline Phosphatase (46-116) U/L Troponin I (0.00-0.056) ng/mL C-Reactive Protein 2.7 H* (<1.0) mg/dL NT-Pro-B Natriuret Pep (0-450) pg/mL Total Protein (6.4-8.2) g/dl Albumin (3.4-5.0) g/dl Globulin gm/dL Albumin/Globulin Ratio (1-2) 12/26/17 12/26/17 12/26/17 Range/Units 14:56 14:56 15:48 WBC (4.23-9.07) K/mm3 RBC (4.63-6.08) M/mm3 Hgb (13.7-17.5) gm/L Hct (40.1-51.0) % MCV (79.0-92.2) fl MCH (25.7-32.2) pg MCHC (32.2-35.5) g/dl RDW Std Deviation (35.1-43.9) fL Plt Count (163-337) K/mm3 MPV (9.4-12.3) fl Neut % (Auto) (34.0-67.9) % Lymph % (Auto) (21.8-53.1) % [place] % (Auto) (5.3-12.2) % Eos % (Auto) (0.8-7.0) Baso % (Auto) (0.1-1.2) % Neut # (Auto) (1.78-5.38) K/mm3 Lymph # (Auto) (1.32-3.57) K/mm3 [place] # (Auto) (0.30-0.82) K/mm3 Eos # (Auto) (0.04-0.54) K/mm3 Baso # (Auto) (0.01-0.08) K/mm3 PT (9.5-12.1) SECONDS INR Sodium 138 (136-145) mEq/L Potassium 3.6 (3.5-5.1) mEq/L Chloride 102 (98-107) mEq/L Carbon Dioxide 25 (21-32) mEq/L Anion Gap 14.6 (5-15) BUN 46 H (7-18) mg/dL Creatinine 1.6 H (0.7-1.3) mg/dL Est Cr Clr Drug Dosing 32.69 mL/min Estimated GFR (MDRD) 41 (>60) mL/min BUN/Creatinine Ratio 28.8 H (14-18) Glucose 99 (83-115) mg/dL Lactic Acid 2.4 H (0.4-2.0) mmol/L Calcium 9.2 (8.5-10.1) mg/dL Magnesium 2.5 H (1.8-2.4) mg/dl Total Bilirubin 0.6 (0.2-1.0) mg/dL AST 19 (15-37) U/L ALT 29 (16-63) U/L Alkaline Phosphatase 53 (46-116) U/L Troponin I < 0.017 (0.00-0.056) ng/mL C-Reactive Protein (<1.0) mg/dL NT-Pro-B Natriuret Pep 2039 H (0-450) pg/mL Total Protein 7.7 (6.4-8.2) g/dl Albumin 3.2 L (3.4-5.0) g/dl Globulin 4.5 gm/dL Albumin/Globulin Ratio 0.7 L (1-2) Result Diagrams: 12/26/17 14:56 12/26/17 14:56 - Problem List (1) Cellulitis SNOMED Code(s): 160750344 ICD Code: L03.90 - CELLULITIS, UNSPECIFIED Status: Acute Priority: High Current Visit: Yes Qualifiers: Site of cellulitis: extremity Site of cellulitis of extremity: lower extremity Laterality: unspecified laterality Qualified Code(s): L03.119 - Cellulitis of unspecified part of limb (2) Sleep apnea SNOMED Code(s): 39825939 ICD Code: G47.30 - SLEEP APNEA, UNSPECIFIED Status: Chronic Priority: Low Current Visit: Yes Qualifiers: Sleep apnea type: unspecified type Qualified Code(s): G47.30 - Sleep apnea , unspecified (3) Uncontrolled type 2 diabetes mellitus with insulin therapy SNOMED Code(s): 849712690 ICD Code: E11.65 - TYPE 2 DIABETES MELLITUS WITH HYPERGLYCEMIA; Z79.4 - HALF-WAY (CURRENT) USE OF INSULIN Status: Chronic Priority: High Current Visit : No (4) HTN (hypertension) SNOMED Code(s): 06718064 ICD Code: I10 - ESSENTIAL (PRIMARY) HYPERTENSION Status: Chronic Priority : High Current Visit: Yes Qualifiers: Hypertension type: unspecified Qualified Code(s): I10 - Essential (primary ) hypertension (5) HLD (hyperlipidemia) SNOMED Code(s): 37880126 ICD Code: E78.5 - HYPERLIPIDEMIA, UNSPECIFIED Status: Chronic Priority: Low Current Visit: No Qualifiers: Hyperlipidemia type: unspecified Qualified Code(s): E78.5 - Hyperlipidemia , unspecified (6) Non compliance w medication regimen SNOMED Code(s): 315291788 ICD Code: Z91.14 - PATIENT'S OTHER NONCOMPLIANCE WITH MEDICATION REGIMEN Status: Chronic Priority: High Current Visit: Yes (7) Diastolic heart failure SNOMED Code(s): 288556823 ICD Code: I50.30 - UNSPECIFIED DIASTOLIC (CONGESTIVE) HEART FAILURE Status : Chronic Priority: Medium Current Visit: Yes Qualifiers: Heart failure chronicity: chronic Qualified Code(s): I50.32 - Chronic diastolic (congestive) heart failure (8) Elevated lactic acid level SNOMED Code(s): 7540657 ICD Code: R79.89 - OTHER SPECIFIED ABNORMAL FINDINGS OF BLOOD CHEMISTRY Status: Acute Priority: High Current Visit: Yes (9) Pedal edema SNOMED Code(s): 556923383 ICD Code: R60.0 - LOCALIZED EDEMA Status: Acute Priority: High Current Visit: Yes (10) Venous stasis dermatitis of both lower extremities SNOMED Code(s): 61136037 ICD Code: I87.2 - VENOUS INSUFFICIENCY (CHRONIC) (PERIPHERAL) Status: Acute Priority: High Current Visit: Yes (11) CAD (coronary artery disease) SNOMED Code(s): 70879534 ICD Code: I25.10 - ATHSCL HEART DISEASE OF [place] CORONARY ARTERY W/O ANG PCTRS Status: Chronic Priority: Medium Current Visit: No Qualifiers: Coronary Disease-Associated Artery/Lesion type: unspecified vessel or lesion type [place] vs. transplanted heart: [place] heart Associated angina: angina presence unspecified Qualified Code(s): I25.10 - Atherosclerotic heart disease of [place] coronary artery without angina pectoris (12) CVA, Cerebrovascular accident SNOMED Code(s): 730798301 ICD Code: I63.9 - CEREBRAL INFARCTION, UNSPECIFIED Status: Resolved Priority: Low Current Visit: No (13) Morbid obesity with BMI of 40.0-44.9, adult SNOMED Code(s): 717123319 ICD Code: E66.01 - MORBID (SEVERE) OBESITY DUE TO EXCESS CALORIES; Z68.41 - BODY MASS INDEX (BMI) 40.0-44.9, ADULT Status: Chronic Priority: High Current Visit: Yes Problem List Initiated/Reviewed/Updated: Yes Orders Last 24hrs: Active Orders 24 hr Category Date Time Status Patient Status [ADT] Routine ADT 12/26/17 20:20 Active Blood Glucose Check, Bedside [RC] QIDACANDBED Care 12/26/17 20:05 Active Cardiac Monitoring [RC] INTERMITTENT Care 12/26/17 20:07 Active Height and Weight [RC] 04 Care 12/26/17 20:05 Active Intake and Output [RC] 04,16 Care 12/26/17 20:06 Active May Shower [RC] ASDIRECTED Care 12/26/17 20:05 Active Oxygen Therapy [RC] PRN Care 12/26/17 20:05 Active Pulse Oximetry [RC] PRN Care 12/26/17 20:07 Active Up ad Joann [RC] ASDIRECTED Care 12/26/17 20:05 Active Up to Chair [RC] ASDIRECTED Care 12/26/17 20:05 Active VTE/DVT Education [RC] BID Care 12/26/17 20:05 Active Vital Signs [RC] Q4HR Care 12/26/17 20:05 Active Consult to Case Management [CONS] Routine Cons 12/26/17 20:05 Active Consult to Diabetic Nurse Specialist [CONS] Routine Cons 12/26/17 20:05 Active Consult to Instrument Repairer [CONS] Routine Cons 12/26/17 20:05 Active Consult to Mercerizer [CONS] Routine Cons 12/26/17 20:05 Active Consult to Spiritual Care [CONS] Routine Cons 12/26/17 20:05 Active OT Evaluation and Treatment [CONS] Routine Cons 12/26/17 20:05 Active PT Evaluation and Treatment [CONS] Routine Cons 12/26/17 20:05 Active Respiratory Care Assess and Treatment [CONS] Routine Cons 12/26/17 20:05 Active 2 Gram Sodium Diet [DIET] Diet 12/27/17 Breakfast Active [place] [employer] Diet [DIET] Diet 12/27/17 Breakfast Active Fluid Restriction [DIET] Diet 12/27/17 Breakfast Active Heart Healthy Diet [DIET] Diet 12/27/17 Breakfast Active CXR [Chest 1V Frontal] [CR] Stat Exams 12/26/17 16:14 Taken Echo Comp wo Cont [US] Routine Exams 12/27/17 05:11 Ordered BASIC METABOLIC PANEL,BMP [CHEM] AM Lab 12/27/17 05:11 Ordered BASIC METABOLIC PANEL,BMP [CHEM] AM Lab 12/28/17 05:11 Ordered BASIC METABOLIC PANEL,BMP [CHEM] AM Lab 12/29/17 05:11 Ordered BASIC METABOLIC PANEL,BMP [CHEM] AM Lab 12/30/17 05:11 Ordered BASIC METABOLIC PANEL,BMP [CHEM] AM Lab 12/31/17 05:11 Ordered C-REACTIVE PROTEIN [CHEM] AM Lab 12/27/17 05:11 Ordered C-REACTIVE PROTEIN [CHEM] AM Lab 12/28/17 05:11 Ordered C-REACTIVE PROTEIN [CHEM] AM Lab 12/29/17 05:11 Ordered C-REACTIVE PROTEIN [CHEM] AM Lab 12/30/17 05:11 Ordered C-REACTIVE PROTEIN [CHEM] AM Lab 12/31/17 05:11 Ordered CBC WITH AUTO DIFF [HEME] AM Lab 12/27/17 05:11 Ordered CBC WITH AUTO DIFF [HEME] AM Lab 12/28/17 05:11 Ordered CBC WITH AUTO DIFF [HEME] AM Lab 12/29/17 05:11 Ordered CBC WITH AUTO DIFF [HEME] AM Lab 12/30/17 05:11 Ordered CBC WITH AUTO DIFF [HEME] AM Lab 12/31/17 05:11 Ordered CULTURE BLOOD [BC] Stat Lab 12/26/17 15:48 Received CULTURE BLOOD [BC] Stat Lab 12/26/17 16:50 Received CULTURE WOUND [RM] Routine Lab 12/26/17 21:45 Ordered LACTIC ACID [CHEM] Routine Lab 12/26/17 21:45 Ordered LIPID PANEL [CHEM] Routine Lab 12/27/17 05:11 Ordered MAGNESIUM [CHEM] AM Lab 12/27/17 05:11 Ordered MAGNESIUM [CHEM] AM Lab 12/28/17 05:11 Ordered MAGNESIUM [CHEM] AM Lab 12/29/17 05:11 Ordered MAGNESIUM [CHEM] AM Lab 12/30/17 05:11 Ordered MAGNESIUM [CHEM] AM Lab 12/31/17 05:11 Ordered METH-RESIST S.AUR,MRSA BY PCR [MOLEC] Routine Lab 12/26/17 21:21 Received UA W/MICROSCOPIC [URIN] Stat Lab 12/26/17 13:54 Ordered VANCOMYCIN TROUGH [CHEM] Timed Lab 12/28/17 20:30 Ordered Acetaminophen [Tylenol] Med 12/26/17 20:05 Active 650 mg PO Q4H PRN Acetaminophen/HYDROcodone [[place] 325-5 MG] Med 12/26/17 20:05 Active 1 tab PO Q4H PRN Allopurinol [Zyloprim] Med 12/27/17 09:00 Active 300 mg PO DAILY Bisacodyl [Dulcolax] Med 12/26/17 20:05 Active 5 mg PO DAILY PRN Cholecalciferol (Vitamin D3) [Vitamin D3] Med 12/27/17 09:00 Active 1,000 units PO DAILY Clopidogrel [Plavix] Med 12/27/17 09:00 Active 75 mg PO DAILY Docusate Sodium [Colace] Med 12/26/17 20:05 Active 100 mg PO BID PRN Docusate Sodium/Sennosides [Senna Plus] Med 12/26/17 20:05 Active 1 tab PO BID PRN Enoxaparin [Lovenox] Med 12/27/17 09:00 Active 30 mg SUBCUT DAILY Furosemide [Lasix] Med 12/26/17 21:00 Active 80 mg PO BIDDIURETIC Furosemide [Lasix] 100 mg Med 12/27/17 09:00 Active Sodium Chloride 0.9% [Normal Saline] 90 ml IV ASDIRECTED Insulin Aspart [NovoLOG] Med 12/27/17 11:00 Active 16 unit SUBCUT KAYLA Insulin Aspart [NovoLOG] Med 12/27/17 19:00 Active 28 unit SUBCUT PCDINNER Insulin Aspart [NovoLOG] Med 12/27/17 07:00 Active 34 unit SUBCUT BRK Insulin Detemir [Levemir] Med 12/26/17 21:00 Active 44 unit SUBCUT BID Isosorbide Mononitrate [Imdur] Med 12/27/17 09:00 Active 30 mg PO DAILY Losartan [Cozaar] Med 12/27/17 09:00 Active 12.5 mg PO DAILY Magnesium Hydroxide [Milk of Magnesia] Med 12/26/17 20:05 Active 30 ml PO Q12H PRN Metolazone [Zaroxolyn] Med 12/27/17 07:00 Active 2.5 mg PO MoWeFr@0700 Metoprolol Tartrate [Lopressor] Med 12/26/17 21:00 Active 25 mg PO BID Morphine Med 12/26/17 20:05 Active 2 mg IVPUSH Q2H PRN Ondansetron [Zofran ODT] Med 12/26/17 20:05 Active 4 mg PO Q4H PRN Ondansetron [Zofran] Med 12/26/17 20:05 Active 4 mg IV Q4H PRN Polyethylene Glycol 3350 [MiraLAX] Med 12/26/17 20:05 Active 17 gm PO DAILY PRN Potassium Chloride [Klor-Con M20] Med 12/26/17 21:00 Active 20 meq PO BIDMEALS Silver Sulfadiazine [Silvadene 1% Cream 50 GM] Med 12/26/17 21:00 Active 0 gm TOP BID Simvastatin [Zocor] Med 12/27/17 09:00 Active 40 mg PO DAILY Sodium Chloride 0.9% [Saline Flush] Med 12/26/17 13:54 Active 10 ml FLUSH ASDIRECTED PRN Spironolactone [Aldactone] Med 12/27/17 08:00 Active 25 mg PO QAM Tamsulosin [Flomax] Med 12/27/17 09:00 Active 0.4 mg PO DAILY Temazepam [Restoril] Med 12/26/17 20:05 Active 7.5 mg PO BEDTIME PRN Vancomycin 1 gm Med 12/27/17 21:00 Active Vancomycin 250 mg Sodium Chloride 0.9% [Normal Saline] 250 ml IV Q24H Vancomycin Pharmacy to Dose [Pharmacy to Dose - Med 12/27/17 09:00 Pending Vancomycin] 1 dose .XX ASDIRECTED Vancomycin [Vancocin] 2 gm Med 12/26/17 21:08 Active Sodium Chloride 0.9% [Normal Saline] 500 ml IV ONETIME hydrALAZINE [Apresoline] Med 12/26/17 20:28 Active 10 mg IVPUSH Q4H PRN Blood Culture x2 Reflex Set [OM.PC] Stat Oth 12/26/17 13:54 Ordered Congestive Heart Failure Education [OM.PC] Routine Oth 12/26/17 20:20 Ordered Peripheral IV Insertion Adult [OM.PC] Routine Oth 12/26/17 13:54 Ordered Resuscitation Status Routine Resus Stat 12/26/17 21:08 Ordered Medication Orders Acetaminophen (Tylenol) 650 mg PO Q4H PRN PRN Reason: Pain (Mild 1-3)/fever Hydrocodone Bitart/Acetaminophen ([place] 325-5 Mg) 1 tab PO Q4H PRN PRN Reason: Pain (moderate 4-6) Allopurinol (Zyloprim) 300 mg PO DAILY [facility] Bisacodyl (Dulcolax) 5 mg PO DAILY PRN PRN Reason: Constipation Cholecalciferol (Vitamin D3) 1,000 units PO DAILY [facility] Clopidogrel Bisulfate (Plavix) 75 mg PO DAILY [facility] Docusate Sodium (Colace) 100 mg PO BID PRN PRN Reason: Constipation Enoxaparin Sodium (Lovenox) 30 mg SUBCUT DAILY [facility] Furosemide (Lasix) 80 mg PO BIDDIURETIC [facility] Hydralazine HCl (Apresoline) 10 mg IVPUSH Q4H PRN PRN Reason: Hypertension Furosemide 100 mg/ Sodium (Chloride) 100 mls @ 4 mls/hr IV ASDIRECTED [facility] Vancomycin HCl 2 gm/ Sodium (Chloride) 500 mls @ 250 mls/hr IV ONETIME ONE Stop: 12/26/17 22:59 Vancomycin HCl 1 gm/Vancomycin HCl 250 mg/ Sodium Chloride 250 mls @ 250 mls/ hr IV Q24H [facility] Insulin Aspart (Novolog) 16 unit SUBCUT KAYLA [facility] Insulin Aspart (Novolog) 28 unit SUBCUT PCDINNER [facility] Insulin Aspart (Novolog) 34 unit SUBCUT BRK [facility] Insulin Detemir (Levemir) 44 unit SUBCUT BID [facility] Isosorbide Mononitrate (Imdur) 30 mg PO DAILY [facility] Losartan Potassium (Cozaar) 12.5 mg PO DAILY [facility] Magnesium Hydroxide (Milk Of Magnesia) 30 ml PO Q12H PRN PRN Reason: Constipation Metolazone (Zaroxolyn) 2.5 mg PO MoWeFr@0700 [facility] Metoprolol Tartrate (Lopressor) 25 mg PO BID [facility] Morphine Sulfate (Morphine) 2 mg IVPUSH Q2H PRN PRN Reason: Pain (severe 7-10) Stop: 12/27/17 20:08 Ondansetron HCl (Zofran Odt) 4 mg PO Q4H PRN PRN Reason: nausea, able to take PO Ondansetron HCl (Zofran) 4 mg IV Q4H PRN PRN Reason: Nausea/Vomiting Polyethylene Glycol (Miralax) 17 gm PO DAILY PRN PRN Reason: Constipation Potassium Chloride (Klor-Con M20) 20 meq PO BIDMEALS [facility] Senna/Docusate Sodium (Senna Plus) 1 tab PO BID PRN PRN Reason: Constipation Silver Sulfadiazine (Silvadene 1% Cream 50 Gm) 0 gm TOP BID [facility] Simvastatin (Zocor) 40 mg PO DAILY [facility] Sodium Chloride (Saline Flush) 10 ml FLUSH ASDIRECTED PRN PRN Reason: Keep Vein Open Last Admin: 12/26/17 17:28 Dose: 10 ml Spironolactone (Aldactone) 25 mg PO QAM [facility] Tamsulosin HCl (Flomax) 0.4 mg PO DAILY [facility] Temazepam (Restoril) 7.5 mg PO BEDTIME PRN PRN Reason: Sleep Vancomycin HCl (Pharmacy To Dose - Vancomycin) 1 dose .XX ASDIRECTED [facility] Assessment/Plan Comment:: I/P: Acute: Cellulitis of bilateral lower extremities -Risk factors: CHF with medical non-compliance, Uncontrolled DM2, Obesity, Venous insufficiency -No h/o MRSA infection--> MRSA ordered; contact precautions for now -Afebrile in ED; Lactic Acid 2.4; WBC 10.93; CRP 2.7 -Rocephin 2g given in ED -Start IV Vanco 2g today; Pharmacy to dose in AM -Sepsis Protocol -Repeat Lactic acid--> 2.2 -Blood Cultures ordered in ED -Wound culture ordered -Wound Care, [place] -Recommend Compression stockings once infection clears Uncontrolled DM2 with insulin use -Acute on Chronic -Last hemoglobin A1c 8.0 -Continue at home insulin regimen -Blood Glucose Checks QIDACBED -ADA diet -Dietary Consult -Diabetic Education Peripheral Neuropathy -Most likely 2/2 above -Diabetic Education -Follow up with PCP Diastolic dysfunction -Hasn't seen customs and immigration officer in years; doesn't know when last ECHO was -ECHO in AM -Continue at home Lasix -Start Lasix IV 4mg/hr in AM -CHF education -2L Fluid Restriction diet, 2g Sodium diet, Heart Healthy Diet -F/U with Policy Change Clerk Essential Hypertension -Acute on Chronic -140/62 in ED -Continue at home medications -Hydralazine PRN -Monitor Atrial Fibrillation/Flutter -Asymptomatic -EKG in ED --> A-fib/A-Flutter w/ variable conduction -Continue at home Metoprolol, Plavix -Monitor on Telemetry Medical non-compliance -States he "forgets" or "falls asleep" before he can take his medications -Hasn't followed up with Policy Change Clerk in years for CHF -Education on importance of sticking to medication regimen -F/U with PCP Chronic: Venous Stasis Dermatitis Hypercholesterolemia--> Check lipids CVA Lesion of the bladder Gout CAD w/ CABG--> On Statin Obstructive sleep apnea--> CPAP ordered Obesity CKD III Plan: Transferred to Med-Surg on telemetry today- Contact Precautions He remains stable and continues to improve clinically Other orders as indicated above Continue at home medications CM/SW for discharge planning--> Consider Home Health ADA/2g Sodium/Fluid Restriction 2L/Heart Healthy Diet Routine AM labs PT/OT DVT Prophylaxis: Lovenox SubQ GI Prophylaxis: Pepcid Ambulated as tolerated Code Status:DNR/DNI; PCP: Dr. Abbie Mascorro
[2017-12-26] MEDS ORDERED: Insulin Aspart 100 Units/ML 3 ML Pen SUBCUT SCH (22:00)
[2017-12-26] MEDS ORDERED: Vancomycin 1 GM AdvVial ONE (22:05)
[2017-12-26] MEDS: Metoprolol Tartrate 25 MG Tab PO SCH (22:39)
[2017-12-26] MEDS: Insulin Detemir 100 Units/ML 3 ML Pen SUBCUT SCH (22:40)
[2017-12-26] MEDS: Potassium Chloride 20 MEQ Tab.ER PO SCH (22:40)
[2017-12-26] MEDS: Furosemide 80 MG Tab PO SCH (22:55)
[2017-12-26] MEDS ORDERED: Furosemide 40 MG/4 ML VIAL IVPUSH ONE (23:00)
[2017-12-27] MEDS ORDERED: Insulin Aspart 100 Units/ML 3 ML Pen SUBCUT SCH ×3 (07:00→19:00)
[2017-12-27] MEDS: Potassium Chloride 20 MEQ Tab.ER PO SCH ×2 (07:40→17:47)
[2017-12-27] MEDS: Metolazone 2.5 MG Tab PO SCH (07:40)
[2017-12-27] MEDS ORDERED: Silver Sulfadiazine 1% Crm 50 GM Tube TOP PRN (07:59)
[2017-12-27] MEDS: Furosemide 80 MG Tab PO SCH (08:02)
[2017-12-27] MEDS: Enoxaparin 30 MG/0.3 ML Syringe SUBCUT SCH (08:24)
--- NOTE | 2017-12-27 08:34 | CR ---
Chest: Portable view of the chest was obtained. Comparison: Prior chest x-ray of 11/02/14. Heart is mildly enlarged. Previous sternotomy is noted. Lungs are clear with no acute parenchymal densities. Bony structures are grossly intact. Impression: 1. Cardiomegaly and prior sternotomy. 2. Nothing acute is appreciated on portable chest x-ray. Diagnostic code #2
[2017-12-27] MEDS: Insulin Detemir 100 Units/ML 3 ML Pen SUBCUT SCH ×2 (08:38→22:44)
[2017-12-27] MEDS: Saccharomyces Boulardii (Probiotic) 250 MG Cap PO SCH ×2 (08:42→22:42)
[2017-12-27] MEDS: Famotidine 20 MG Tab PO SCH (08:42)
[2017-12-27] MEDS: Spironolactone 25 MG Tab PO SCH (08:42)
[2017-12-27] MEDS: Tamsulosin 0.4 MG Cap.ER PO SCH (08:42)
[2017-12-27] MEDS: Simvastatin 40 MG Tab PO SCH (08:43)
[2017-12-27] MEDS: Metoprolol Tartrate 25 MG Tab PO SCH ×2 (08:43→22:41)
[2017-12-27] MEDS: Clopidogrel 75 MG Tab PO SCH (08:43)
[2017-12-27] MEDS: Cholecalciferol (Vitamin D3) 1,000 Unit Tab PO SCH (08:43)
[2017-12-27] MEDS: Allopurinol 300 MG Tab PO SCH (08:43)
[2017-12-27] MEDS: Losartan 25 MG Tab PO SCH (08:44)
[2017-12-27] MEDS: Isosorbide Mononitrate 30 MG Tab.ER PO SCH (08:44)
[2017-12-27] MEDS: Sodium Chloride 0.9% 10 ML Syringe FLUSH PRN ×2 (08:50→14:15)
[2017-12-27] MEDS ORDERED: Famotidine 20 MG Tab PO SCH (09:00)
[2017-12-27] MEDS ORDERED: Enoxaparin 40 MG/0.4 ML Syringe SUBCUT SCH (09:00)
[2017-12-27] MEDS: Furosemide 100 MG in Sodium Chloride 0.9% 90 ML IV SCH (10:01)
[2017-12-27] MEDS ORDERED: 50% Dextrose in Water 50 ML Syringe IVPUSH PRN (12:23)
[2017-12-27] MEDS ORDERED: Sodium Chloride 0.9% 250 ML IV SCH (12:33)
[2017-12-27] MEDS: Insulin Aspart 100 Units/ML 3 ML Pen SUBCUT SCH ×3 (13:01→22:46)
[2017-12-27] MEDS ORDERED: Sodium Chloride 0.9% 10 ML Syringe FLUSH ONE (13:47)
[2017-12-27] MEDS ORDERED: Iopamidol 755 Mg/ML 100 ML Bottle IVPUSH ONE (13:47)
[2017-12-27] MEDS ORDERED: Iopamidol 755 MG/ML 50 ML Bottle IVPUSH ONE (13:47)
[2017-12-27] MEDS ORDERED: Sodium Chloride 0.9% 100 ML IV SCH (14:00)
[2017-12-27] MEDS: Mineral Oil/White Petrolatum Crm 113 GM Jar TOP PRN (17:49)
--- NOTE | 2017-12-27 17:50 | PCM.PN ---
- General Info Date of Service: 12/27/17 Admission Dx/Problem (Free Text): Admission Diagnosis/Problem Admission Diagnosis/Problem Cellulitis Subjective Update: In to Inderjit today. He is sitting in a chair visiting with his . He states he is feeling better today, but says his legs are about an 8/10 pain. I explained to both him and his that this condition was brought on by multiple medical problems, including uncontrolled diabetes, diastolic heart failure and medical non-compliance. stated she did not realize he had heart failure. I also explained to both of them the importance of taking his medications every day at home and following up with both PCP and Humane Officer. They stated they understand, but Inderjit stated "I'm at that point where I know I don't have much time left" and doesn't seem motivated to take the required steps to regain his health. seems more concerned and motivated. At this time, he has no other complaints. Ambulating. Urinating. Good appetite. No other concerns from nursing. Functional Status: Reports: Pain Controlled, Tolerating Diet, Ambulating, Urinating - Review of Systems General: Reports: No Symptoms. Denies: Fever, Chills HEENT: Reports: No Symptoms Pulmonary: Reports: No Symptoms Cardiovascular: Reports: Edema (2+ bilaterally). Denies: Chest Pain, Palpitations Gastrointestinal: Reports: No Symptoms. Denies: Diarrhea, Nausea, Vomiting Genitourinary: Reports: No Symptoms. Denies: Dysuria, Frequency, Burning, Pain Musculoskeletal: Reports: Leg Pain (8/10 bilaterally) Skin: Reports: Rash, Other (Erythema and purulent drainiage in bilateral lower extremities) Neurological: Reports: No Symptoms Psychiatric: Reports: No Symptoms - Patient Data Vitals - Most Recent: Last Vital Signs Temp 99.0 F 12/27/17 12:09 Pulse 55 L 12/27/17 12:09 Resp 16 12/27/17 12:09 BP 124/80 12/27/17 12:09 Pulse Ox 96 12/27/17 12:09 Weight - Most Recent: 262 lb 3.2 oz I&O - Last 24 Hours: Intake & Output 12/27/17 12/27/17 12/27/17 06:59 14:59 22:59 Intake Total 600 300 280 Output Total 1200 Balance -600 300 280 Lab Results Last 24 Hours: Laboratory Results - last 24 hr 06/14/18 06/14/18 06/14/18 Range/Units 21:21 21:45 22:11 WBC (4.23-9.07) K/mm3 RBC (4.63-6.08) M/mm3 Hgb (13.7-17.5) gm/L Hct (40.1-51.0) % MCV (79.0-92.2) fl MCH (25.7-32.2) pg MCHC (32.2-35.5) g/dl RDW Std Deviation (35.1-43.9) fL Plt Count (163-337) K/mm3 MPV (9.4-12.3) fl Neut % (Auto) (34.0-67.9) % Lymph % (Auto) (21.8-53.1) % [place] % (Auto) (5.3-12.2) % Eos % (Auto) (0.8-7.0) Baso % (Auto) (0.1-1.2) % Neut # (Auto) (1.78-5.38) K/mm3 Lymph # (Auto) (1.32-3.57) K/mm3 [place] # (Auto) (0.30-0.82) K/mm3 Eos # (Auto) (0.04-0.54) K/mm3 Baso # (Auto) (0.01-0.08) K/mm3 Sodium (136-145) mEq/L Potassium (3.5-5.1) mEq/L Chloride (98-107) mEq/L Carbon Dioxide (21-32) mEq/L Anion Gap (5-15) BUN (7-18) mg/dL Creatinine (0.7-1.3) mg/dL Est Cr Clr Drug Dosing mL/min Estimated GFR (MDRD) (>60) mL/min BUN/Creatinine Ratio (14-18) Glucose (83-115) mg/dL POC Glucose 197 H (83-110) mg/dL Lactic Acid 2.2 H (0.4-2.0) mmol/L Calcium (8.5-10.1) mg/dL Magnesium (1.8-2.4) mg/dl C-Reactive Protein (<1.0) mg/dL Triglycerides (<150) mg/dL Cholesterol (<200) mg/dL LDL Cholesterol Direct (<100) mg/dL HDL Cholesterol (40-59) mg/dL Urine Color (Yellow) Urine Appearance (Clear) Urine pH (5.0-8.0) Ur Specific [place] (1.005-1.030) Urine Protein (Negative) Urine Glucose (UA) (Negative) Urine Ketones (Negative) Urine Occult Blood (Negative) Urine Nitrite (Negative) Urine Bilirubin (Negative) Urine Urobilinogen (0.2-1.0) Ur Leukocyte Esterase (Negative) Urine RBC (0-5) /hpf Urine WBC (0-5) /hpf Ur Epithelial Cells (0-5) /hpf Urine Bacteria (FEW) /hpf Urine Mucus (FEW) /hpf MRSA (PCR) Negative 12/27/17 12/27/17 12/27/17 Range/Units 03:00 05:35 05:35 WBC 10.57 H (4.23-9.07) K/mm3 RBC 3.69 L (4.63-6.08) M/mm3 Hgb 10.8 L (13.7-17.5) gm/L Hct 32.9 L (40.1-51.0) % MCV 89.2 (79.0-92.2) fl MCH 29.3 (25.7-32.2) pg MCHC 32.8 (32.2-35.5) g/dl RDW Std Deviation 50.1 H (35.1-43.9) fL Plt Count 201 (163-337) K/mm3 MPV 9.8 (9.4-12.3) fl Neut % (Auto) 75.0 H (34.0-67.9) % Lymph % (Auto) 14.9 L (21.8-53.1) % [place] % (Auto) 7.7 (5.3-12.2) % Eos % (Auto) 1.9 (0.8-7.0) Baso % (Auto) 0.4 (0.1-1.2) % Neut # (Auto) 7.94 H (1.78-5.38) K/mm3 Lymph # (Auto) 1.57 (1.32-3.57) K/mm3 [place] # (Auto) 0.81 (0.30-0.82) K/mm3 Eos # (Auto) 0.20 (0.04-0.54) K/mm3 Baso # (Auto) 0.04 (0.01-0.08) K/mm3 Sodium 137 (136-145) mEq/L Potassium 4.4 (3.5-5.1) mEq/L Chloride 103 (98-107) mEq/L Carbon Dioxide 25 (21-32) mEq/L Anion Gap 13.4 (5-15) BUN 33 H (7-18) mg/dL Creatinine 1.4 H (0.7-1.3) mg/dL Est Cr Clr Drug Dosing 36.72 mL/min Estimated GFR (MDRD) 48 (>60) mL/min BUN/Creatinine Ratio 23.6 H (14-18) Glucose 174 H (83-115) mg/dL POC Glucose (83-110) mg/dL Lactic Acid (0.4-2.0) mmol/L Calcium 8.6 (8.5-10.1) mg/dL Magnesium 2.2 (1.8-2.4) mg/dl C-Reactive Protein 3.5 H* (<1.0) mg/dL Triglycerides 129 (<150) mg/dL Cholesterol 125 (<200) mg/dL LDL Cholesterol Direct 75 (<100) mg/dL HDL Cholesterol 37.0 L (40-59) mg/dL Urine Color Light yellow (Yellow) Urine Appearance Clear (Clear) Urine pH 7.0 (5.0-8.0) Ur Specific [place] 1.020 (1.005-1.030) Urine Protein Negative (Negative) Urine Glucose (UA) Negative (Negative) Urine Ketones Negative (Negative) Urine Occult Blood Negative (Negative) Urine Nitrite Negative (Negative) Urine Bilirubin Negative (Negative) Urine Urobilinogen 0.2 (0.2-1.0) Ur Leukocyte Esterase Negative (Negative) Urine RBC Not seen (0-5) /hpf Urine WBC 0-5 (0-5) /hpf Ur Epithelial Cells 0-5 (0-5) /hpf Urine Bacteria Not seen (FEW) /hpf Urine Mucus Not seen (FEW) /hpf MRSA (PCR) 12/27/17 12/27/17 12/27/17 Range/Units 06:59 11:05 16:38 WBC (4.23-9.07) K/mm3 RBC (4.63-6.08) M/mm3 Hgb (13.7-17.5) gm/L Hct (40.1-51.0) % MCV (79.0-92.2) fl MCH (25.7-32.2) pg MCHC (32.2-35.5) g/dl RDW Std Deviation (35.1-43.9) fL Plt Count (163-337) K/mm3 MPV (9.4-12.3) fl Neut % (Auto) (34.0-67.9) % Lymph % (Auto) (21.8-53.1) % [place] % (Auto) (5.3-12.2) % Eos % (Auto) (0.8-7.0) Baso % (Auto) (0.1-1.2) % Neut # (Auto) (1.78-5.38) K/mm3 Lymph # (Auto) (1.32-3.57) K/mm3 [place] # (Auto) (0.30-0.82) K/mm3 Eos # (Auto) (0.04-0.54) K/mm3 Baso # (Auto) (0.01-0.08) K/mm3 Sodium (136-145) mEq/L Potassium (3.5-5.1) mEq/L Chloride (98-107) mEq/L Carbon Dioxide (21-32) mEq/L Anion Gap (5-15) BUN (7-18) mg/dL Creatinine (0.7-1.3) mg/dL Est Cr Clr Drug Dosing mL/min Estimated GFR (MDRD) (>60) mL/min BUN/Creatinine Ratio (14-18) Glucose (83-115) mg/dL POC Glucose 203 H 274 H 193 H (83-110) mg/dL Lactic Acid (0.4-2.0) mmol/L Calcium (8.5-10.1) mg/dL Magnesium (1.8-2.4) mg/dl C-Reactive Protein (<1.0) mg/dL Triglycerides (<150) mg/dL Cholesterol (<200) mg/dL LDL Cholesterol Direct (<100) mg/dL HDL Cholesterol (40-59) mg/dL Urine Color (Yellow) Urine Appearance (Clear) Urine pH (5.0-8.0) Ur Specific [place] (1.005-1.030) Urine Protein (Negative) Urine Glucose (UA) (Negative) Urine Ketones (Negative) Urine Occult Blood (Negative) Urine Nitrite (Negative) Urine Bilirubin (Negative) Urine Urobilinogen (0.2-1.0) Ur Leukocyte Esterase (Negative) Urine RBC (0-5) /hpf Urine WBC (0-5) /hpf Ur Epithelial Cells (0-5) /hpf Urine Bacteria (FEW) /hpf Urine Mucus (FEW) /hpf MRSA (PCR) Jas Results Last 24 Hours: Microbiology 12/26/17 15:48 Aerobic Blood Culture - Preliminary Blood - Venous NO GROWTH AFTER 1 DAY Anaerobic Blood Culture - Final 12/26/17 16:50 Aerobic Blood Culture - Preliminary Blood - Venous - Lab Draw NO GROWTH AFTER 1 DAY Anaerobic Blood Culture - Preliminary NO GROWTH AFTER 1 DAY Med Orders - Current: Current Medications Acetaminophen (Tylenol) 650 mg PO Q4H PRN PRN Reason: Pain (Mild 1-3)/fever Hydrocodone Bitart/Acetaminophen ([place] 325-5 Mg) 1 tab PO Q4H PRN PRN Reason: Pain (moderate 4-6) Allopurinol (Zyloprim) 300 mg PO DAILY [facility] Last Admin: 12/27/17 08:43 Dose: 300 mg Bisacodyl (Dulcolax) 5 mg PO DAILY PRN PRN Reason: Constipation Cholecalciferol (Vitamin D3) 1,000 units PO DAILY [facility] Last Admin: 12/27/17 08:43 Dose: 1,000 units Clopidogrel Bisulfate (Plavix) 75 mg PO DAILY [facility] Last Admin: 12/27/17 08:43 Dose: 75 mg Dextrose/Water (Dextrose 50% In Water) 50 ml IVPUSH ASDIRECTED PRN PRN Reason: Hypoglycemia Docusate Sodium (Colace) 100 mg PO BID PRN PRN Reason: Constipation Enoxaparin Sodium (Lovenox) 30 mg SUBCUT DAILY [facility] Last Admin: 12/27/17 08:24 Dose: 30 mg Famotidine (Pepcid) 20 mg PO DAILY [facility] Last Admin: 12/27/17 08:42 Dose: 20 mg Hydralazine HCl (Apresoline) 10 mg IVPUSH Q4H PRN PRN Reason: Hypertension Furosemide 100 mg/ Sodium (Chloride) 100 mls @ 4 mls/hr IV ASDIRECTED [facility] Last Admin: 12/27/17 10:01 Dose: 4 mg/hr, 4 mls/hr Vancomycin HCl 1 gm/Vancomycin HCl 250 mg/ Sodium Chloride 250 mls @ 250 mls/ hr IV Q24H [facility] Sodium Chloride (Normal Saline) 250 mls @ 500 mls/hr IV .BOLUS [facility] Stop: 12/27/17 18:00 Insulin Aspart (Novolog) 0 unit SUBCUT QIDACANDBED [facility]; Protocol Last Admin: 12/27/17 13:01 Dose: 6 units Insulin Detemir (Levemir) 22 unit SUBCUT BID [facility] Isosorbide Mononitrate (Imdur) 30 mg PO DAILY [facility] Last Admin: 12/27/17 08:44 Dose: 30 mg Losartan Potassium (Cozaar) 12.5 mg PO DAILY [facility] Last Admin: 12/27/17 08:44 Dose: 12.5 mg Magnesium Hydroxide (Milk Of Magnesia) 30 ml PO Q12H PRN PRN Reason: Constipation Metolazone (Zaroxolyn) 2.5 mg PO MoWeFr@0700 [facility] Last Admin: 12/27/17 07:40 Dose: 2.5 mg Metoprolol Tartrate (Lopressor) 25 mg PO BID [facility] Last Admin: 12/27/17 08:43 Dose: 25 mg Mineral Oil/White Petrolatum (Hydrocerin Crm) 0 gm TOP ASDIRECTED PRN PRN Reason: DRY SKIN Morphine Sulfate (Morphine) 2 mg IVPUSH Q2H PRN PRN Reason: Pain (severe 7-10) Stop: 12/27/17 20:08 Ondansetron HCl (Zofran Odt) 4 mg PO Q4H PRN PRN Reason: nausea, able to take PO Ondansetron HCl (Zofran) 4 mg IV Q4H PRN PRN Reason: Nausea/Vomiting Polyethylene Glycol (Miralax) 17 gm PO DAILY PRN PRN Reason: Constipation Potassium Chloride (Klor-Con M20) 20 meq PO BIDMEALS [facility] Last Admin: 12/27/17 07:40 Dose: 20 meq Saccharomyces Boulardii (Florastor) 250 mg PO BID [facility] Last Admin: 12/27/17 08:42 Dose: 250 mg Senna/Docusate Sodium (Senna Plus) 1 tab PO BID PRN PRN Reason: Constipation Silver Sulfadiazine (Silvadene 1% Cream 50 Gm) 0 gm TOP BID PRN PRN Reason: varela Simvastatin (Zocor) 40 mg PO DAILY [facility] Last Admin: 12/27/17 08:43 Dose: 40 mg Sodium Chloride (Saline Flush) 10 ml FLUSH ASDIRECTED PRN PRN Reason: Keep Vein Open Last Admin: 12/27/17 14:15 Dose: 10 ml Spironolactone (Aldactone) 25 mg PO QAM [facility] Last Admin: 12/27/17 08:42 Dose: 25 mg Tamsulosin HCl (Flomax) 0.4 mg PO DAILY [facility] Last Admin: 12/27/17 08:42 Dose: 0.4 mg Temazepam (Restoril) 7.5 mg PO BEDTIME PRN PRN Reason: Sleep Vancomycin HCl (Pharmacy To Dose - Vancomycin) 0 dose .XX ASDIRECTED PRN PRN Reason: RX TO DOSE VANCOMYCIN Discontinued Medications Ceftriaxone Sodium 2 gm/ (Lidocaine HCl 4.2 ml) 0 gm IM ONETIME ONE Stop: 12/26/17 17:13 Last Admin: 12/26/17 17:27 Dose: 2 inj Enoxaparin Sodium (Lovenox) 40 mg SUBCUT DAILY [facility] Famotidine (Pepcid) 20 mg PO BID [facility] Furosemide (Lasix) 80 mg PO BIDDIURETIC [facility] Last Admin: 12/27/17 08:02 Dose: Not Given Furosemide (Lasix) 40 mg IVPUSH ONETIME ONE Stop: 12/26/17 23:01 Last Admin: 12/26/17 23:38 Dose: 40 mg Ceftriaxone Sodium 2 gm/ (Sodium Chloride) 100 mls @ 200 mls/hr IV ONETIME ONE Stop: 12/26/17 16:35 Last Admin: 12/26/17 18:11 Dose: Not Given Lidocaine HCl (Xylocaine-Mpf 1%) Confirm Administered Dose 8 mls @ as directed .ROUTE .STK-MED ONE Stop: 12/26/17 17:38 Vancomycin HCl 2 gm/ Sodium (Chloride) 250 mls @ 125 mls/hr IV ONETIME ONE Stop: 12/26/17 22:59 Last Admin: 12/26/17 23:14 Dose: Not Given Vancomycin HCl 1 gm/ Sodium (Chloride) 250 mls @ 250 mls/hr IV ONETIME ONE Stop: 12/26/17 23:29 Last Admin: 12/26/17 22:41 Dose: 250 mls/hr Vancomycin HCl 1 gm/ Sodium (Chloride) 250 mls @ 250 mls/hr IV ONETIME ONE Stop: 12/27/17 00:29 Last Admin: 12/27/17 00:14 Dose: 250 mls/hr Sodium Chloride (Normal Saline) 100 mls @ 60 mls/hr IV ASDIRECTED [facility] Stop: 12/27/17 16:00 Last Admin: 12/27/17 14:15 Dose: 60 mls/hr Insulin Aspart (Novolog) 0 unit SUBCUT QIDACANDBED [facility]; Protocol Insulin Aspart (Novolog) 16 unit SUBCUT KAYLA [facility] Last Admin: 12/27/17 14:07 Dose: Not Given Insulin Aspart (Novolog) 28 unit SUBCUT PCDINNER [facility] Insulin Aspart (Novolog) 34 unit SUBCUT BRK [facility] Last Admin: 12/27/17 08:39 Dose: 34 units Insulin Detemir (Levemir) 44 unit SUBCUT BID [facility] Last Admin: 12/27/17 08:38 Dose: 44 units Iopamidol (Isovue-370 (76%)) 50 ml IVPUSH ONETIME ONE Stop: 12/27/17 13:48 Last Admin: 12/27/17 14:15 Dose: 50 ml Iopamidol (Isovue-370 (76%)) 100 ml IVPUSH ONETIME ONE Stop: 12/27/17 13:48 Last Admin: 12/27/17 14:15 Dose: 100 ml Silver Sulfadiazine (Silvadene 1% Cream 50 Gm) 0 gm TOP BID [facility] Last Admin: 12/26/17 23:13 Dose: Not Given Sodium Chloride (Saline Flush) 10 ml FLUSH ONETIME ONE Stop: 12/27/17 13:48 Vancomycin HCl (Vancocin) Confirm Administered Dose 2 gm .ROUTE .STK-MED ONE Stop: 12/26/17 22:06 Last Admin: 12/27/17 00:21 Dose: Not Given - Exam Quality Assessment: DVT Prophylaxis General: Alert, Oriented, Cooperative, No Acute Distress HEENT: Pupils Equal, Pupils Reactive, EOMI, Mucous Membr. Moist/Deport Neck: Supple Lungs: Clear to Auscultation, Normal Respiratory Effort Cardiovascular: Regular Rate, Irregular Rhythm (afib) GI/Abdominal Exam: Normal Bowel Sounds, Soft, Non-Tender, No Organomegaly, No Distention, No Abnormal Bruit, No Mass, Pelvis Stable (Male) Exam: Deferred Back Exam: Normal Inspection, Full Range of Motion Extremities: Normal Range of Motion, Pedal Edema (2+ bilaterally), Slow Capillary Refill, Leg Pain (TTP, 8/10), Increased Warmth, Redness (improving), Other (Purulent discharge throughout lower extremities, onychomycosis of the toenails) Peripheral Pulses: 1+: Posterior Tibial (L), Posterior Tibial (R), Dorsalis Pedis (L), Dorsalis Pedis (R) Skin: Warm, Other (purulent drainage and erythema of the lower bilateral extremities) Wound/Incisions: Healing Well, Drainage, Erythema Improving Neurological: No New Focal Deficit, Cranial Nerves Intact (grossly). No: Sensation Intact (bilateral feet have no sensation) Psy/Mental Status: Alert, Normal Affect, Normal Mood - Problem List & Annotations (1) Cellulitis SNOMED Code(s): 375835259 Code(s): L03.90 - CELLULITIS, UNSPECIFIED Status: Acute Priority: High Current Visit: Yes Qualifiers: Site of cellulitis: extremity Site of cellulitis of extremity: lower extremity Laterality: unspecified laterality Qualified Code(s): L03.119 - Cellulitis of unspecified part of limb (2) Sleep apnea SNOMED Code(s): 40197866 Code(s): G47.30 - SLEEP APNEA, UNSPECIFIED Status: Chronic Priority: Low Current Visit: Yes Qualifiers: Sleep apnea type: unspecified type Qualified Code(s): G47.30 - Sleep apnea , unspecified (3) Uncontrolled type 2 diabetes mellitus with insulin therapy SNOMED Code(s): 408088173 Code(s): E11.65 - TYPE 2 DIABETES MELLITUS WITH HYPERGLYCEMIA; Z79.4 - SHELTER (CURRENT) USE OF INSULIN Status: Chronic Priority: High Current Visit : No (4) HTN (hypertension) SNOMED Code(s): 71745177 Code(s): I10 - ESSENTIAL (PRIMARY) HYPERTENSION Status: Chronic Priority : High Current Visit: Yes Qualifiers: Hypertension type: unspecified Qualified Code(s): I10 - Essential (primary ) hypertension (5) HLD (hyperlipidemia) SNOMED Code(s): 93419314 Code(s): E78.5 - HYPERLIPIDEMIA, UNSPECIFIED Status: Chronic Priority: Low Current Visit: No Qualifiers: Hyperlipidemia type: unspecified Qualified Code(s): E78.5 - Hyperlipidemia , unspecified (6) Non compliance w medication regimen SNOMED Code(s): 125593372 Code(s): Z91.14 - PATIENT'S OTHER NONCOMPLIANCE WITH MEDICATION REGIMEN Status: Chronic Priority: High Current Visit: Yes (7) Diastolic heart failure SNOMED Code(s): 901840663 Code(s): I50.30 - UNSPECIFIED DIASTOLIC (CONGESTIVE) HEART FAILURE Status: Chronic Priority: Medium Current Visit: Yes Qualifiers: Heart failure chronicity: chronic Qualified Code(s): I50.32 - Chronic diastolic (congestive) heart failure (8) Elevated lactic acid level SNOMED Code(s): 5966460 Code(s): R79.89 - OTHER SPECIFIED ABNORMAL FINDINGS OF BLOOD CHEMISTRY Status: Acute Priority: High Current Visit: Yes (9) Pedal edema SNOMED Code(s): 900715611 Code(s): R60.0 - LOCALIZED EDEMA Status: Acute Priority: High Current Visit: Yes (10) Venous stasis dermatitis of both lower extremities SNOMED Code(s): 53491648 Code(s): I87.2 - VENOUS INSUFFICIENCY (CHRONIC) (PERIPHERAL) Status: Acute Priority: High Current Visit: Yes (11) CAD (coronary artery disease) SNOMED Code(s): 31498017 Code(s): I25.10 - ATHSCL HEART DISEASE OF [place] CORONARY ARTERY W/O ANG PCTRS Status: Chronic Priority: Medium Current Visit: No Qualifiers: Coronary Disease-Associated Artery/Lesion type: unspecified vessel or lesion type [place] vs. transplanted heart: [place] heart Associated angina: angina presence unspecified Qualified Code(s): I25.10 - Atherosclerotic heart disease of [place] coronary artery without angina pectoris (12) CVA, Cerebrovascular accident SNOMED Code(s): 486207718 Code(s): I63.9 - CEREBRAL INFARCTION, UNSPECIFIED Status: Resolved Priority: Low Current Visit: No (13) Morbid obesity with BMI of 40.0-44.9, adult SNOMED Code(s): 491146775 Code(s): E66.01 - MORBID (SEVERE) OBESITY DUE TO EXCESS CALORIES; Z68.41 - BODY MASS INDEX (BMI) 40.0-44.9, ADULT Status: Chronic Priority: High Current Visit: Yes - Problem List Review Problem List Initiated/Reviewed/Updated: Yes - My Orders Last 24 Hours: My Active Orders 12/26/17 20:05 Blood Glucose Check, Bedside [RC] QIDACANDBED Height and Weight [RC] 15 November Shower [RC] ASDIRECTED Oxygen Therapy [RC] PRN Up ad Joann [RC] ASDIRECTED Up to Chair [RC] ASDIRECTED VTE/DVT Education [RC] BID Vital Signs [RC] Q4HR Consult to Case Management [CONS] Routine Consult to Diabetic Nurse Specialist [CONS] Routine Consult to Ad Operations Intern [CONS] Routine Consult to Electronic Instrument Trades Worker [CONS] Routine Consult to Spiritual Care [CONS] Routine OT Evaluation and Treatment [CONS] Routine PT Evaluation and Treatment [CONS] Routine Respiratory Care Assess and Treatment [CONS] Routine Acetaminophen [Tylenol] 650 mg PO Q4H PRN Acetaminophen/HYDROcodone [[place] 325-5 MG] 1 tab PO Q4H PRN Bisacodyl [Dulcolax] 5 mg PO DAILY PRN Docusate Sodium [Colace] 100 mg PO BID PRN Docusate Sodium/Sennosides [Senna Plus] 1 tab PO BID PRN Magnesium Hydroxide [Milk of Magnesia] 30 ml PO Q12H PRN Morphine 2 mg IVPUSH Q2H PRN Ondansetron [Zofran ODT] 4 mg PO Q4H PRN Ondansetron [Zofran] 4 mg IV Q4H PRN Polyethylene Glycol 3350 [MiraLAX] 17 gm PO DAILY PRN Temazepam [Restoril] 7.5 mg PO BEDTIME PRN 12/26/17 20:06 Intake and Output [RC] 04,16 12/26/17 20:07 Cardiac Monitoring [RC] INTERMITTENT Pulse Oximetry [RC] PRN 12/26/17 20:20 Congestive Heart Failure Education [OM.PC] Routine 12/26/17 20:28 hydrALAZINE [Apresoline] 10 mg IVPUSH Q4H PRN 12/26/17 21:00 Metoprolol Tartrate [Lopressor] 25 mg PO BID Potassium Chloride [Klor-Con M20] 20 meq PO BIDMEALS 12/26/17 21:08 Resuscitation Status Routine 12/26/17 21:34 CPAP Adult [RT BiPAP/CPAP] [RC] ASDIRECTED 12/26/17 21:45 CULTURE WOUND [RM] Routine 12/27/17 07:00 Metolazone [Zaroxolyn] 2.5 mg PO MoWeFr@0700 12/27/17 08:00 Spironolactone [Aldactone] 25 mg PO QAM 12/27/17 09:00 Allopurinol [Zyloprim] 300 mg PO DAILY Cholecalciferol (Vitamin D3) [Vitamin D3] 1,000 units PO DAILY Clopidogrel [Plavix] 75 mg PO DAILY Enoxaparin [Lovenox] 30 mg SUBCUT DAILY Furosemide [Lasix] 100 mg Sodium Chloride 0.9% [Normal Saline] 90 ml IV ASDIRECTED Isosorbide Mononitrate [Imdur] 30 mg PO DAILY Losartan [Cozaar] 12.5 mg PO DAILY Saccharomyces Boulardii [Florastor] 250 mg PO BID Simvastatin [Zocor] 40 mg PO DAILY Tamsulosin [Flomax] 0.4 mg PO DAILY Vancomycin Pharmacy to Dose [Pharmacy to Dose - Vancomycin] 0 dose .XX ASDIRECTED PRN 12/27/17 Breakfast 2 Gram Sodium Diet [DIET] [place] [employer] Diet [DIET] Fluid Restriction [DIET] 12/28/17 05:11 BASIC METABOLIC PANEL,BMP [CHEM] AM C-REACTIVE PROTEIN [CHEM] AM CBC WITH AUTO DIFF [HEME] AM MAGNESIUM [CHEM] AM 12/28/17 14:00 CULTURE BLOOD [BC] Stat CULTURE BLOOD [BC] Stat Blood Culture x2 Reflex Set [OM.PC] Stat 12/29/17 05:11 BASIC METABOLIC PANEL,BMP [CHEM] AM C-REACTIVE PROTEIN [CHEM] AM CBC WITH AUTO DIFF [HEME] AM MAGNESIUM [CHEM] AM 12/29/17 20:30 VANCOMYCIN TROUGH [CHEM] Timed 12/30/17 05:11 BASIC METABOLIC PANEL,BMP [CHEM] AM C-REACTIVE PROTEIN [CHEM] AM CBC WITH AUTO DIFF [HEME] AM MAGNESIUM [CHEM] AM 12/31/17 05:11 BASIC METABOLIC PANEL,BMP [CHEM] AM C-REACTIVE PROTEIN [CHEM] AM CBC WITH AUTO DIFF [HEME] AM MAGNESIUM [CHEM] AM - Plan Plan:: I/P: Acute: Cellulitis of bilateral lower extremities -Risk factors: CHF with medical non-compliance, Uncontrolled DM2, Obesity, Venous insufficiency -No h/o MRSA infection--> MRSA negative -Afebrile in ED; Lactic Acid 2.4; WBC 10.93-->10.57; CRP 2.7-->3.5 -Rocephin 2g given in ED -Start IV Vanco 2g today; Pharmacy to dose in AM -Sepsis Protocol -Repeat Lactic acid--> 2.2 -Blood Cultures ordered in ED--> No growth after 1 day -Wound culture ordered--> contact precautions for now -Wound Care, [place] -Abdominal Aorta with run-off (CTA BILAT LEGS) ordered to check arterial competency -Recommend Compression stockings once infection clears Venous Insufficiency -Acute on Chronic -Venous Stasis Dermatitis present chronically -Venous Doppler ordered Uncontrolled DM2 with insulin use -Acute on Chronic -Last hemoglobin A1c 8.0 -At home Insulin Detemir decreased from 44 to 22 BID d/t controlled diet here -Insulin sliding scale PRN -Blood Glucose Checks QIDACBED -ADA diet -Dietary Consult -Diabetic Education Peripheral Neuropathy -Most likely 2/2 above -Diabetic Education -Follow up with PCP Diastolic dysfunction -Hasn't seen free lance model in years; doesn't know when last ECHO was -ECHO in AM -Continue at home Lasix -Start Lasix IV 4mg/hr in AM -CHF education -2L Fluid Restriction diet, 2g Sodium diet, Heart Healthy Diet -F/U with Humane Officer Essential Hypertension -Acute on Chronic -140/62 in ED -Continue at home medications -Hydralazine PRN -Monitor Atrial Fibrillation/Flutter -Asymptomatic -EKG in ED --> A-fib/A-Flutter w/ variable conduction -Continue at home Metoprolol, Plavix -Monitor on Telemetry Medical non-compliance -States he "forgets" or "falls asleep" before he can take his medications -Hasn't followed up with Humane Officer in years for CHF -Education on importance of sticking to medication regimen -F/U with PCP Chronic: Hypercholesterolemia--> Check lipids: HDL low at 37, all other values normal CVA Lesion of the bladder Gout CAD w/ CABG--> On Statin Obstructive sleep apnea--> CPAP ordered Obesity CKD III Plan: Transferred to Med-Surg on telemetry today- Contact Precautions He remains stable and continues to improve clinically Other orders as indicated above Continue at home medications CM/SW for discharge planning--> Consider Home Health ADA/2g Sodium/Fluid Restriction 2L/Heart Healthy Diet Routine AM labs PT/OT DVT Prophylaxis: Lovenox SubQ GI Prophylaxis: Pepcid Ambulated as tolerated Code Status:DNR/DNI; PCP: Dr. Abbie Mascorro
[2017-12-27] MEDS: Vancomycin 1 GM, Vancomycin 250 MG in Sodium Chloride 0.9% 250 ML IV SCH (22:47)
[2017-12-28] MEDS: Tamsulosin 0.4 MG Cap.ER PO SCH (09:12)
[2017-12-28] MEDS: Clopidogrel 75 MG Tab PO SCH (09:12)
[2017-12-28] MEDS: Spironolactone 25 MG Tab PO SCH (09:12)
[2017-12-28] MEDS: Famotidine 20 MG Tab PO SCH (09:12)
[2017-12-28] MEDS: Cholecalciferol (Vitamin D3) 1,000 Unit Tab PO SCH (09:12)
[2017-12-28] MEDS: Losartan 25 MG Tab PO SCH ×2 (09:12→10:58)
[2017-12-28] MEDS: Enoxaparin 30 MG/0.3 ML Syringe SUBCUT SCH (09:15)
[2017-12-28] MEDS: Simvastatin 40 MG Tab PO SCH (09:15)
[2017-12-28] MEDS: Saccharomyces Boulardii (Probiotic) 250 MG Cap PO SCH ×2 (09:15→21:44)
[2017-12-28] MEDS: Potassium Chloride 20 MEQ Tab.ER PO SCH ×2 (09:15→17:18)
[2017-12-28] MEDS: Allopurinol 300 MG Tab PO SCH (09:15)
[2017-12-28] MEDS: Insulin Detemir 100 Units/ML 3 ML Pen SUBCUT SCH ×2 (09:16→21:52)
[2017-12-28] MEDS: Insulin Aspart 100 Units/ML 3 ML Pen SUBCUT SCH ×4 (09:17→21:53)
[2017-12-28] MEDS: Furosemide 100 MG in Sodium Chloride 0.9% 90 ML IV SCH (10:18)
[2017-12-28] MEDS: Isosorbide Mononitrate 30 MG Tab.ER PO SCH (10:19)
[2017-12-28] MEDS: Metoprolol Tartrate 25 MG Tab PO SCH ×2 (10:58→21:45)
--- NOTE | 2017-12-28 11:56 | PCM.PN ---
- General Info Date of Service: 12/28/17 Subjective Update: Denies SOB with ambulation; took shower yestreday. Will take shower QOD; lost 7 pounds, will keep lasix gtt one more day. Functional Status: Reports: Tolerating Diet, Ambulating, Urinating - Review of Systems General: Reports: Weakness, Fatigue HEENT: Reports: No Symptoms Pulmonary: Reports: No Symptoms Cardiovascular: Reports: No Symptoms Gastrointestinal: Reports: No Symptoms Genitourinary: Reports: No Symptoms Musculoskeletal: Reports: No Symptoms Skin: Reports: No Symptoms Neurological: Reports: No Symptoms Psychiatric: Reports: No Symptoms - Patient Data Vitals - Most Recent: Last Vital Signs Temp 36.7 C 12/28/17 07:58 Pulse 64 12/28/17 10:58 Resp 16 12/28/17 07:58 BP 120/71 12/28/17 10:58 Pulse Ox 97 12/28/17 07:58 Weight - Most Recent: 115.938 kg I&O - Last 24 Hours: Intake & Output 12/27/17 12/28/17 12/28/17 22:59 06:59 14:59 Intake Total 603 431 Output Total 1150 2100 Balance -547 -4279 Lab Results Last 24 Hours: Laboratory Results - last 24 hr 12/27/17 12/27/17 12/27/17 Range/Units 16:38 18:24 21:16 WBC (4.23-9.07) K/mm3 RBC (4.63-6.08) M/mm3 Hgb (13.7-17.5) gm/L Hct (40.1-51.0) % MCV (79.0-92.2) fl MCH (25.7-32.2) pg MCHC (32.2-35.5) g/dl RDW Std Deviation (35.1-43.9) fL Plt Count (163-337) K/mm3 MPV (9.4-12.3) fl Neut % (Auto) (34.0-67.9) % Lymph % (Auto) (21.8-53.1) % [place] % (Auto) (5.3-12.2) % Eos % (Auto) (0.8-7.0) Baso % (Auto) (0.1-1.2) % Neut # (Auto) (1.78-5.38) K/mm3 Lymph # (Auto) (1.32-3.57) K/mm3 [place] # (Auto) (0.30-0.82) K/mm3 Eos # (Auto) (0.04-0.54) K/mm3 Baso # (Auto) (0.01-0.08) K/mm3 Sodium (136-145) mEq/L Potassium (3.5-5.1) mEq/L Chloride (98-107) mEq/L Carbon Dioxide (21-32) mEq/L Anion Gap (5-15) BUN (7-18) mg/dL Creatinine (0.7-1.3) mg/dL Est Cr Clr Drug Dosing mL/min Estimated GFR (MDRD) (>60) mL/min BUN/Creatinine Ratio (14-18) Glucose (83-115) mg/dL POC Glucose 193 H 180 H (83-110) mg/dL Lactic Acid 2.8 H (0.4-2.0) mmol/L Calcium (8.5-10.1) mg/dL Magnesium (1.8-2.4) mg/dl C-Reactive Protein (<1.0) mg/dL 12/28/17 12/28/17 12/28/17 Range/Units 06:06 06:50 06:50 WBC 8.55 (4.23-9.07) K/mm3 RBC 3.98 L (4.63-6.08) M/mm3 Hgb 11.7 L (13.7-17.5) gm/L Hct 35.5 L (40.1-51.0) % MCV 89.2 (79.0-92.2) fl MCH 29.4 (25.7-32.2) pg MCHC 33.0 (32.2-35.5) g/dl RDW Std Deviation 50.3 H (35.1-43.9) fL Plt Count 211 (163-337) K/mm3 MPV 9.2 L (9.4-12.3) fl Neut % (Auto) 57.3 (34.0-67.9) % Lymph % (Auto) 28.2 (21.8-53.1) % [place] % (Auto) 10.3 (5.3-12.2) % Eos % (Auto) 3.4 (0.8-7.0) Baso % (Auto) 0.7 (0.1-1.2) % Neut # (Auto) 4.90 (1.78-5.38) K/mm3 Lymph # (Auto) 2.41 (1.32-3.57) K/mm3 [place] # (Auto) 0.88 H (0.30-0.82) K/mm3 Eos # (Auto) 0.29 (0.04-0.54) K/mm3 Baso # (Auto) 0.06 (0.01-0.08) K/mm3 Sodium 139 (136-145) mEq/L Potassium 4.0 (3.5-5.1) mEq/L Chloride 102 (98-107) mEq/L Carbon Dioxide 27 (21-32) mEq/L Anion Gap 14.0 (5-15) BUN 35 H (7-18) mg/dL Creatinine 1.6 H (0.7-1.3) mg/dL Est Cr Clr Drug Dosing 32.13 mL/min Estimated GFR (MDRD) 41 (>60) mL/min BUN/Creatinine Ratio 21.9 H (14-18) Glucose 114 (83-115) mg/dL POC Glucose 117 H (83-110) mg/dL Lactic Acid (0.4-2.0) mmol/L Calcium 9.6 (8.5-10.1) mg/dL Magnesium 2.3 (1.8-2.4) mg/dl C-Reactive Protein 8.1 H* (<1.0) mg/dL Jas Results Last 24 Hours: Microbiology 12/26/17 15:48 Aerobic Blood Culture - Preliminary Blood - Venous NO GROWTH AFTER 1 DAY Anaerobic Blood Culture - Final 12/26/17 16:50 Aerobic Blood Culture - Preliminary Blood - Venous - Lab Draw NO GROWTH AFTER 1 DAY Anaerobic Blood Culture - Preliminary NO GROWTH AFTER 1 DAY Med Orders - Current: Current Medications Acetaminophen (Tylenol) 650 mg PO Q4H PRN PRN Reason: Pain (Mild 1-3)/fever Hydrocodone Bitart/Acetaminophen ([place] 325-5 Mg) 1 tab PO Q4H PRN PRN Reason: Pain (moderate 4-6) Allopurinol (Zyloprim) 300 mg PO DAILY [facility] Last Admin: 12/28/17 09:15 Dose: 300 mg Bisacodyl (Dulcolax) 5 mg PO DAILY PRN PRN Reason: Constipation Cholecalciferol (Vitamin D3) 1,000 units PO DAILY [facility] Last Admin: 12/28/17 09:12 Dose: 1,000 units Clopidogrel Bisulfate (Plavix) 75 mg PO DAILY [facility] Last Admin: 12/28/17 09:12 Dose: 75 mg Dextrose/Water (Dextrose 50% In Water) 50 ml IVPUSH ASDIRECTED PRN PRN Reason: Hypoglycemia Docusate Sodium (Colace) 100 mg PO BID PRN PRN Reason: Constipation Enoxaparin Sodium (Lovenox) 30 mg SUBCUT DAILY [facility] Last Admin: 12/28/17 09:15 Dose: 30 mg Famotidine (Pepcid) 20 mg PO DAILY [facility] Last Admin: 12/28/17 09:12 Dose: 20 mg Hydralazine HCl (Apresoline) 10 mg IVPUSH Q4H PRN PRN Reason: Hypertension Furosemide 100 mg/ Sodium (Chloride) 100 mls @ 4 mls/hr IV ASDIRECTED [facility] Last Admin: 12/28/17 10:18 Dose: 4 mg/hr, 4 mls/hr Vancomycin HCl 1 gm/Vancomycin HCl 250 mg/ Sodium Chloride 250 mls @ 250 mls/ hr IV Q24H [facility] Last Admin: 12/27/17 22:47 Dose: 250 mls/hr Insulin Aspart (Novolog) 0 unit SUBCUT QIDACANDBED [facility]; Protocol Last Admin: 12/28/17 09:17 Dose: Not Given Insulin Detemir (Levemir) 22 unit SUBCUT BID [facility] Last Admin: 12/28/17 09:16 Dose: 22 unit Isosorbide Mononitrate (Imdur) 30 mg PO DAILY [facility] Last Admin: 12/28/17 10:19 Dose: 30 mg Losartan Potassium (Cozaar) 12.5 mg PO BEDTIME [facility] Magnesium Hydroxide (Milk Of Magnesia) 30 ml PO Q12H PRN PRN Reason: Constipation Last Admin: 12/28/17 09:18 Dose: 30 ml Metolazone (Zaroxolyn) 2.5 mg PO MoWeFr@0700 [facility] Last Admin: 12/27/17 07:40 Dose: 2.5 mg Metoprolol Tartrate (Lopressor) 25 mg PO Q12HR [facility] Mineral Oil/White Petrolatum (Hydrocerin Crm) 0 gm TOP ASDIRECTED PRN PRN Reason: DRY SKIN Last Admin: 12/27/17 17:49 Dose: 1 applic Ondansetron HCl (Zofran Odt) 4 mg PO Q4H PRN PRN Reason: nausea, able to take PO Ondansetron HCl (Zofran) 4 mg IV Q4H PRN PRN Reason: Nausea/Vomiting Polyethylene Glycol (Miralax) 17 gm PO DAILY PRN PRN Reason: Constipation Potassium Chloride (Klor-Con M20) 20 meq PO BID@0800,1700 [facility] Last Admin: 12/28/17 09:15 Dose: 20 meq Saccharomyces Boulardii (Florastor) 250 mg PO BID [facility] Last Admin: 12/28/17 09:15 Dose: 250 mg Senna/Docusate Sodium (Senna Plus) 1 tab PO BID PRN PRN Reason: Constipation Silver Sulfadiazine (Silvadene 1% Cream 50 Gm) 0 gm TOP BID PRN PRN Reason: varela Simvastatin (Zocor) 40 mg PO DAILY [facility] Last Admin: 12/28/17 09:15 Dose: 40 mg Sodium Chloride (Saline Flush) 10 ml FLUSH ASDIRECTED PRN PRN Reason: Keep Vein Open Last Admin: 12/27/17 14:15 Dose: 10 ml Spironolactone (Aldactone) 25 mg PO QAM [facility] Last Admin: 12/28/17 09:12 Dose: 25 mg Tamsulosin HCl (Flomax) 0.4 mg PO DAILY [facility] Last Admin: 12/28/17 09:12 Dose: 0.4 mg Temazepam (Restoril) 7.5 mg PO BEDTIME PRN PRN Reason: Sleep Vancomycin HCl (Pharmacy To Dose - Vancomycin) 0 dose .XX ASDIRECTED PRN PRN Reason: RX TO DOSE VANCOMYCIN Discontinued Medications Ceftriaxone Sodium 2 gm/ (Lidocaine HCl 4.2 ml) 0 gm IM ONETIME ONE Stop: 12/26/17 17:13 Last Admin: 12/26/17 17:27 Dose: 2 inj Enoxaparin Sodium (Lovenox) 40 mg SUBCUT DAILY [facility] Famotidine (Pepcid) 20 mg PO BID [facility] Furosemide (Lasix) 80 mg PO BIDDIURETIC [facility] Last Admin: 12/27/17 08:02 Dose: Not Given Furosemide (Lasix) 40 mg IVPUSH ONETIME ONE Stop: 12/26/17 23:01 Last Admin: 12/26/17 23:38 Dose: 40 mg Ceftriaxone Sodium 2 gm/ (Sodium Chloride) 100 mls @ 200 mls/hr IV ONETIME ONE Stop: 12/26/17 16:35 Last Admin: 12/26/17 18:11 Dose: Not Given Lidocaine HCl (Xylocaine-Mpf 1%) Confirm Administered Dose 8 mls @ as directed .ROUTE .STK-MED ONE Stop: 12/26/17 17:38 Vancomycin HCl 2 gm/ Sodium (Chloride) 250 mls @ 125 mls/hr IV ONETIME ONE Stop: 12/26/17 22:59 Last Admin: 12/26/17 23:14 Dose: Not Given Vancomycin HCl 1 gm/ Sodium (Chloride) 250 mls @ 250 mls/hr IV ONETIME ONE Stop: 12/26/17 23:29 Last Admin: 12/26/17 22:41 Dose: 250 mls/hr Vancomycin HCl 1 gm/ Sodium (Chloride) 250 mls @ 250 mls/hr IV ONETIME ONE Stop: 12/27/17 00:29 Last Admin: 12/27/17 00:14 Dose: 250 mls/hr Sodium Chloride (Normal Saline) 250 mls @ 500 mls/hr IV .BOLUS [facility] Stop: 12/27/17 18:00 Sodium Chloride (Normal Saline) 100 mls @ 60 mls/hr IV ASDIRECTED [facility] Stop: 12/27/17 16:00 Last Admin: 12/27/17 14:15 Dose: 60 mls/hr Insulin Aspart (Novolog) 0 unit SUBCUT QIDACANDBED [facility]; Protocol Insulin Aspart (Novolog) 16 unit SUBCUT KAYLA [facility] Last Admin: 12/27/17 14:07 Dose: Not Given Insulin Aspart (Novolog) 28 unit SUBCUT PCDINNER [facility] Insulin Aspart (Novolog) 34 unit SUBCUT BRK [facility] Last Admin: 12/27/17 08:39 Dose: 34 units Insulin Detemir (Levemir) 44 unit SUBCUT BID [facility] Last Admin: 12/27/17 08:38 Dose: 44 units Iopamidol (Isovue-370 (76%)) 50 ml IVPUSH ONETIME ONE Stop: 12/27/17 13:48 Last Admin: 12/27/17 14:15 Dose: 50 ml Iopamidol (Isovue-370 (76%)) 100 ml IVPUSH ONETIME ONE Stop: 12/27/17 13:48 Last Admin: 12/27/17 14:15 Dose: 100 ml Losartan Potassium (Cozaar) 12.5 mg PO DAILY [facility] Last Admin: 12/28/17 10:58 Dose: Not Given Metoprolol Tartrate (Lopressor) 25 mg PO BID [facility] Last Admin: 12/28/17 10:58 Dose: Not Given Morphine Sulfate (Morphine) 2 mg IVPUSH Q2H PRN PRN Reason: Pain (severe 7-10) Stop: 12/27/17 20:08 Potassium Chloride (Klor-Con M20) 20 meq PO BIDMEALS [facility] Last Admin: 12/27/17 17:47 Dose: 20 meq Silver Sulfadiazine (Silvadene 1% Cream 50 Gm) 0 gm TOP BID [facility] Last Admin: 12/26/17 23:13 Dose: Not Given Sodium Chloride (Saline Flush) 10 ml FLUSH ONETIME ONE Stop: 12/27/17 13:48 Vancomycin HCl (Vancocin) Confirm Administered Dose 2 gm .ROUTE .STK-MED ONE Stop: 12/26/17 22:06 Last Admin: 12/27/17 00:21 Dose: Not Given - Exam Quality Assessment: DVT Prophylaxis General: Alert, Oriented, Cooperative HEENT: Pupils Equal, Pupils Reactive, EOMI Neck: Trachea Midline, No JVD Lungs: Normal Respiratory Effort Cardiovascular: Regular Rate, Regular Rhythm GI/Abdominal Exam: Normal Bowel Sounds, Soft, Non-Tender, No Organomegaly, No Distention (Male) Exam: Deferred Back Exam: Normal Inspection Extremities: Normal Inspection, Pedal Edema (decreased), Redness (decreased) Skin: Warm Neurological: No New Focal Deficit, Normal Gait, Normal Speech Psy/Mental Status: Alert, Normal Affect, Normal Mood - Problem List Review Problem List Initiated/Reviewed/Updated: Yes - My Orders Last 24 Hours: My Active Orders 12/27/17 21:00 Vancomycin 1 gm Vancomycin 250 mg Sodium Chloride 0.9% [Normal Saline] 250 ml IV Q24H 12/28/17 21:00 Losartan [Cozaar] 12.5 mg PO BEDTIME Metoprolol Tartrate [Lopressor] 25 mg PO Q12HR - Plan Plan:: I/P: Acute: Cellulitis of bilateral lower extremities -Risk factors: CHF with medical non-compliance, Uncontrolled DM2, Obesity, Venous insufficiency -No h/o MRSA infection--> MRSA negative -Afebrile in ED; Lactic Acid 2.4; WBC 10.93-->10.57; CRP 2.7-->3.5 -Rocephin 2g given in ED -Start IV Vanco 2g today; Pharmacy to dose in AM -Sepsis Protocol -Repeat Lactic acid--> 2.2 -Blood Cultures ordered in ED--> No growth after 1 day -Wound culture ordered--> contact precautions for now; probable SA and pseudomonas -Wound Care, [place] -Abdominal Aorta with run-off (CTA BILAT LEGS) ordered to check arterial competency -Recommend Compression stockings once infection clears Venous Insufficiency -Acute on Chronic -Venous Stasis Dermatitis present chronically -Venous Doppler ordered Uncontrolled DM2 with insulin use -Acute on Chronic -Last hemoglobin A1c 8.0 -At home Insulin Detemir decreased from 44 to 22 BID d/t controlled diet here -Insulin sliding scale PRN -Blood Glucose Checks QIDACBED -ADA diet -Dietary Consult -Diabetic Education Peripheral Neuropathy -Most likely 2/2 above -Diabetic Education -Follow up with PCP Diastolic dysfunction -Hasn't seen lamp mechanic in years; doesn't know when last ECHO was -ECHO in AM -Continue at home Lasix -Start Lasix IV 4mg/hr in AM -CHF education -2L Fluid Restriction diet, 2g Sodium diet, Heart Healthy Diet -F/U with [employer] Essential Hypertension -Acute on Chronic -140/62 in ED -Continue at home medications -Hydralazine PRN; stop ARB when diuresing. 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 Abbie Mascorro
[2017-12-28] MEDS: Mineral Oil/White Petrolatum Crm 113 GM Jar TOP PRN (17:17)
[2017-12-28] MEDS ORDERED: hydrALAZINE 20 MG/ML SDV IVPUSH PRN (18:09)
[2017-12-28] MEDS ORDERED: Acetaminophen/HYDROcodone 325-5 MG Tab PO PRN (18:12)
[2017-12-28] MEDS ORDERED: Piperacillin/Tazobactam 4.5 GM in Sodium Chloride 0.9% 100 ML IV ONE (18:30)
[2017-12-28] MEDS ORDERED: Losartan 25 MG Tab PO SCH (21:00)
[2017-12-28] MEDS: Vancomycin 1 GM, Vancomycin 250 MG in Sodium Chloride 0.9% 250 ML IV SCH (21:49)
[2017-12-29] MEDS: Piperacillin/Tazobactam 4.5 GM in Sodium Chloride 0.9% 100 ML IV SCH ×2 (01:10→09:00)
[2017-12-29] MEDS: Insulin Aspart 100 Units/ML 3 ML Pen SUBCUT SCH ×4 (06:20→21:57)
[2017-12-29] MEDS: Saccharomyces Boulardii (Probiotic) 250 MG Cap PO SCH ×2 (08:51→21:55)
[2017-12-29] MEDS: Famotidine 20 MG Tab PO SCH (08:51)
[2017-12-29] MEDS: Tamsulosin 0.4 MG Cap.ER PO SCH (08:52)
[2017-12-29] MEDS: Simvastatin 40 MG Tab PO SCH (08:52)
[2017-12-29] MEDS: Allopurinol 300 MG Tab PO SCH (08:52)
[2017-12-29] MEDS: Potassium Chloride 20 MEQ Tab.ER PO SCH (08:52)
[2017-12-29] MEDS: Clopidogrel 75 MG Tab PO SCH (08:53)
[2017-12-29] MEDS: Insulin Detemir 100 Units/ML 3 ML Pen SUBCUT SCH ×2 (08:53→21:55)
[2017-12-29] MEDS: Isosorbide Mononitrate 30 MG Tab.ER PO SCH (08:53)
[2017-12-29] MEDS: Spironolactone 25 MG Tab PO SCH (08:53)
[2017-12-29] MEDS: Cholecalciferol (Vitamin D3) 1,000 Unit Tab PO SCH (08:53)
[2017-12-29] MEDS: Enoxaparin 30 MG/0.3 ML Syringe SUBCUT SCH (08:54)
[2017-12-29] MEDS: Metoprolol Tartrate 25 MG Tab PO SCH ×2 (08:57→22:00)
[2017-12-29] MEDS: Mineral Oil/White Petrolatum Crm 113 GM Jar TOP PRN (10:48)
--- NOTE | 2017-12-29 12:34 | PCM.PN ---
- General Info Date of Service: 12/29/17 Subjective Update: Patient is doing better and ambulated twice, full laps yesterday. He took a shower today and feels better. Results of his wound cx have returned, and the patient has SA and pseudomonas. He will need a PICC line consult on Saturday. Fluid weight loss is 12 pounds. Functional Status: Reports: Pain Controlled, Tolerating Diet, Ambulating, Urinating - Review of Systems General: Reports: No Symptoms HEENT: Reports: No Symptoms Pulmonary: Reports: No Symptoms Cardiovascular: Reports: No Symptoms Gastrointestinal: Reports: No Symptoms Genitourinary: Reports: No Symptoms Musculoskeletal: Reports: No Symptoms Skin: Reports: Other Neurological: Reports: No Symptoms Psychiatric: Reports: No Symptoms - Patient Data Vitals - Most Recent: Last Vital Signs Temp 36.7 C 12/29/17 11:29 Pulse 54 L 12/29/17 11:29 Resp 20 12/29/17 11:29 BP 101/53 L 12/29/17 11:29 Pulse Ox 98 12/29/17 11:29 Weight - Most Recent: 113.716 kg I&O - Last 24 Hours: Intake & Output 12/28/17 12/29/17 12/29/17 22:59 06:59 14:59 Intake Total 1074 600 300 Output Total 2300 1700 Balance -1226 -1100 300 Lab Results Last 24 Hours: Laboratory Results - last 24 hr 12/28/17 12/28/17 12/28/17 Range/Units 12:28 17:02 21:35 WBC (4.23-9.07) K/mm3 RBC (4.63-6.08) M/mm3 Hgb (13.7-17.5) gm/L Hct (40.1-51.0) % MCV (79.0-92.2) fl MCH (25.7-32.2) pg MCHC (32.2-35.5) g/dl RDW Std Deviation (35.1-43.9) fL Plt Count (163-337) K/mm3 MPV (9.4-12.3) fl Neut % (Auto) (34.0-67.9) % Lymph % (Auto) (21.8-53.1) % Pepin % (Auto) (5.3-12.2) % Eos % (Auto) (0.8-7.0) Baso % (Auto) (0.1-1.2) % Neut # (Auto) (1.78-5.38) K/mm3 Lymph # (Auto) (1.32-3.57) K/mm3 Pepin # (Auto) (0.30-0.82) K/mm3 Eos # (Auto) (0.04-0.54) K/mm3 Baso # (Auto) (0.01-0.08) K/mm3 Sodium (136-145) mEq/L Potassium (3.5-5.1) mEq/L Chloride (98-107) mEq/L Carbon Dioxide (21-32) mEq/L Anion Gap (5-15) BUN (7-18) mg/dL Creatinine (0.7-1.3) mg/dL Est Cr Clr Drug Dosing mL/min Estimated GFR (MDRD) (>60) mL/min BUN/Creatinine Ratio (14-18) Glucose (83-115) mg/dL POC Glucose 199 H 250 H 182 H (83-110) mg/dL Calcium (8.5-10.1) mg/dL Magnesium (1.8-2.4) mg/dl C-Reactive Protein (<1.0) mg/dL NT-Pro-B Natriuret Pep (0-450) pg/mL 12/29/17 12/29/17 12/29/17 Range/Units 05:07 05:54 05:54 WBC 7.74 (4.23-9.07) K/mm3 RBC 3.79 L (4.63-6.08) M/mm3 Hgb 11.1 L (13.7-17.5) gm/L Hct 34.1 L (40.1-51.0) % MCV 90.0 (79.0-92.2) fl MCH 29.3 (25.7-32.2) pg MCHC 32.6 (32.2-35.5) g/dl RDW Std Deviation 51.3 H (35.1-43.9) fL Plt Count 222 (163-337) K/mm3 MPV 9.8 (9.4-12.3) fl Neut % (Auto) 58.6 (34.0-67.9) % Lymph % (Auto) 25.3 (21.8-53.1) % Pepin % (Auto) 10.9 (5.3-12.2) % Eos % (Auto) 4.5 (0.8-7.0) Baso % (Auto) 0.6 (0.1-1.2) % Neut # (Auto) 4.53 (1.78-5.38) K/mm3 Lymph # (Auto) 1.96 (1.32-3.57) K/mm3 Pepin # (Auto) 0.84 H (0.30-0.82) K/mm3 Eos # (Auto) 0.35 (0.04-0.54) K/mm3 Baso # (Auto) 0.05 (0.01-0.08) K/mm3 Sodium 139 (136-145) mEq/L Potassium 4.0 (3.5-5.1) mEq/L Chloride 103 (98-107) mEq/L Carbon Dioxide 28 (21-32) mEq/L Anion Gap 12.0 (5-15) BUN 36 H (7-18) mg/dL Creatinine 1.7 H (0.7-1.3) mg/dL Est Cr Clr Drug Dosing 30.24 mL/min Estimated GFR (MDRD) 39 (>60) mL/min BUN/Creatinine Ratio 21.2 H (14-18) Glucose 121 H (83-115) mg/dL POC Glucose 142 H (83-110) mg/dL Calcium 9.0 (8.5-10.1) mg/dL Magnesium 2.1 (1.8-2.4) mg/dl C-Reactive Protein 5.1 H* (<1.0) mg/dL NT-Pro-B Natriuret Pep (0-450) pg/mL 12/29/17 12/29/17 Range/Units 05:54 11:24 WBC (4.23-9.07) K/mm3 RBC (4.63-6.08) M/mm3 Hgb (13.7-17.5) gm/L Hct (40.1-51.0) % MCV (79.0-92.2) fl MCH (25.7-32.2) pg MCHC (32.2-35.5) g/dl RDW Std Deviation (35.1-43.9) fL Plt Count (163-337) K/mm3 MPV (9.4-12.3) fl Neut % (Auto) (34.0-67.9) % Lymph % (Auto) (21.8-53.1) % Pepin % (Auto) (5.3-12.2) % Eos % (Auto) (0.8-7.0) Baso % (Auto) (0.1-1.2) % Neut # (Auto) (1.78-5.38) K/mm3 Lymph # (Auto) (1.32-3.57) K/mm3 Pepin # (Auto) (0.30-0.82) K/mm3 Eos # (Auto) (0.04-0.54) K/mm3 Baso # (Auto) (0.01-0.08) K/mm3 Sodium (136-145) mEq/L Potassium (3.5-5.1) mEq/L Chloride (98-107) mEq/L Carbon Dioxide (21-32) mEq/L Anion Gap (5-15) BUN (7-18) mg/dL Creatinine (0.7-1.3) mg/dL Est Cr Clr Drug Dosing mL/min Estimated GFR (MDRD) (>60) mL/min BUN/Creatinine Ratio (14-18) Glucose (83-115) mg/dL POC Glucose 304 H (83-110) mg/dL Calcium (8.5-10.1) mg/dL Magnesium (1.8-2.4) mg/dl C-Reactive Protein (<1.0) mg/dL NT-Pro-B Natriuret Pep 1441 H (0-450) pg/mL Jas Results Last 24 Hours: Microbiology 12/28/17 14:50 Anaerobic Blood Culture - Final Blood - Venous 12/27/17 01:44 Wound Culture - Final Leg, Unspecified Staphylococcus Aureus Pseudomonas Aeruginosa 12/26/17 15:48 Aerobic Blood Culture - Preliminary Blood - Venous NO GROWTH AFTER 2 DAYS Anaerobic Blood Culture - Final 12/26/17 16:50 Aerobic Blood Culture - Preliminary Blood - Venous - Lab Draw NO GROWTH AFTER 2 DAYS Anaerobic Blood Culture - Preliminary NO GROWTH AFTER 2 DAYS Med Orders - Current: Current Medications Acetaminophen (Tylenol) 650 mg PO Q4H PRN PRN Reason: Pain (Mild 1-3)/fever Hydrocodone Bitart/Acetaminophen (Landers 325-5 Mg) 1 tab PO Q6H PRN PRN Reason: Pain (moderate 4-6) Allopurinol (Zyloprim) 300 mg PO DAILY [facility] Last Admin: 12/29/17 08:52 Dose: 300 mg Bisacodyl (Dulcolax) 5 mg PO DAILY PRN PRN Reason: Constipation Cholecalciferol (Vitamin D3) 1,000 units PO DAILY [facility] Last Admin: 12/29/17 08:53 Dose: 1,000 units Clopidogrel Bisulfate (Plavix) 75 mg PO DAILY [facility] Last Admin: 12/29/17 08:53 Dose: 75 mg Dextrose/Water (Dextrose 50% In Water) 50 ml IVPUSH ASDIRECTED PRN PRN Reason: Hypoglycemia Docusate Sodium (Colace) 100 mg PO BID PRN PRN Reason: Constipation Enoxaparin Sodium (Lovenox) 30 mg SUBCUT DAILY [facility] Last Admin: 12/29/17 08:54 Dose: 30 mg Famotidine (Pepcid) 20 mg PO DAILY [facility] Last Admin: 12/29/17 08:51 Dose: 20 mg Hydralazine HCl (Apresoline) 20 mg IVPUSH Q6H PRN PRN Reason: Hypertension Clindamycin Phosphate 900 mg/ (Sodium Chloride) 106 mls @ 100 mls/hr IV Q6H [facility] Meropenem 1 gm/ Sodium (Chloride) 100 mls @ 200 mls/hr IV Q8H [facility] Insulin Aspart (Novolog) 0 unit SUBCUT QIDACANDBED [facility]; Protocol Last Admin: 12/29/17 11:25 Dose: 8 units Insulin Detemir (Levemir) 22 unit SUBCUT BID [facility] Last Admin: 12/29/17 08:53 Dose: 22 unit Isosorbide Mononitrate (Imdur) 30 mg PO DAILY [facility] Last Admin: 12/29/17 08:53 Dose: 30 mg Losartan Potassium (Cozaar) 12.5 mg PO BEDTIME [facility] Magnesium Hydroxide (Milk Of Magnesia) 30 ml PO Q12H PRN PRN Reason: Constipation Last Admin: 12/28/17 09:18 Dose: 30 ml Metolazone (Zaroxolyn) 2.5 mg PO MoWeFr@0700 [facility] Last Admin: 12/27/17 07:40 Dose: 2.5 mg Metoprolol Tartrate (Lopressor) 25 mg PO Q12HR [facility] Last Admin: 12/29/17 08:57 Dose: 25 mg Mineral Oil/White Petrolatum (Hydrocerin Crm) 0 gm TOP ASDIRECTED PRN PRN Reason: DRY SKIN Last Admin: 12/29/17 10:48 Dose: 1 applic Ondansetron HCl (Zofran Odt) 4 mg PO Q4H PRN PRN Reason: nausea, able to take PO Ondansetron HCl (Zofran) 4 mg IV Q4H PRN PRN Reason: Nausea/Vomiting Polyethylene Glycol (Miralax) 17 gm PO DAILY PRN PRN Reason: Constipation Potassium Chloride (Klor-Con M20) 20 meq PO BID@0800,1700 [facility] Last Admin: 12/29/17 08:52 Dose: 20 meq Saccharomyces Boulardii (Florastor) 250 mg PO BID [facility] Last Admin: 12/29/17 08:51 Dose: 250 mg Senna/Docusate Sodium (Senna Plus) 1 tab PO BID PRN PRN Reason: Constipation Silver Sulfadiazine (Silvadene 1% Cream 50 Gm) 0 gm TOP BID PRN PRN Reason: varela Simvastatin (Zocor) 40 mg PO DAILY [facility] Last Admin: 12/29/17 08:52 Dose: 40 mg Sodium Chloride (Saline Flush) 10 ml FLUSH ASDIRECTED PRN PRN Reason: Keep Vein Open Last Admin: 12/27/17 14:15 Dose: 10 ml Spironolactone (Aldactone) 25 mg PO QAM [facility] Last Admin: 12/29/17 08:53 Dose: 25 mg Tamsulosin HCl (Flomax) 0.4 mg PO DAILY [facility] Last Admin: 12/29/17 08:52 Dose: 0.4 mg Temazepam (Restoril) 7.5 mg PO BEDTIME PRN PRN Reason: Sleep Vancomycin HCl (Pharmacy To Dose - Vancomycin) 0 dose .XX ASDIRECTED PRN PRN Reason: RX TO DOSE VANCOMYCIN Discontinued Medications Hydrocodone Bitart/Acetaminophen (Landers 325-5 Mg) 1 tab PO Q4H PRN PRN Reason: Pain (moderate 4-6) Ceftriaxone Sodium 2 gm/ (Lidocaine HCl 4.2 ml) 0 gm IM ONETIME ONE Stop: 12/26/17 17:13 Last Admin: 12/26/17 17:27 Dose: 2 inj Enoxaparin Sodium (Lovenox) 40 mg SUBCUT DAILY [facility] Famotidine (Pepcid) 20 mg PO BID [facility] Furosemide (Lasix) 80 mg PO BIDDIURETIC [facility] Last Admin: 12/27/17 08:02 Dose: Not Given Furosemide (Lasix) 40 mg IVPUSH ONETIME ONE Stop: 12/26/17 23:01 Last Admin: 12/26/17 23:38 Dose: 40 mg Hydralazine HCl (Apresoline) 10 mg IVPUSH Q4H PRN PRN Reason: Hypertension Ceftriaxone Sodium 2 gm/ (Sodium Chloride) 100 mls @ 200 mls/hr IV ONETIME ONE Stop: 12/26/17 16:35 Last Admin: 12/26/17 18:11 Dose: Not Given Lidocaine HCl (Xylocaine-Mpf 1%) Confirm Administered Dose 8 mls @ as directed .ROUTE .STK-MED ONE Stop: 12/26/17 17:38 Vancomycin HCl 2 gm/ Sodium (Chloride) 250 mls @ 125 mls/hr IV ONETIME ONE Stop: 12/26/17 22:59 Last Admin: 12/26/17 23:14 Dose: Not Given Furosemide 100 mg/ Sodium (Chloride) 100 mls @ 4 mls/hr IV ASDIRECTED [facility] Last Admin: 12/28/17 10:18 Dose: 4 mg/hr, 4 mls/hr Vancomycin HCl 1 gm/Vancomycin HCl 250 mg/ Sodium Chloride 250 mls @ 250 mls/ hr IV Q24H [facility] Last Admin: 12/28/17 21:49 Dose: 250 mls/hr Vancomycin HCl 1 gm/ Sodium (Chloride) 250 mls @ 250 mls/hr IV ONETIME ONE Stop: 12/26/17 23:29 Last Admin: 12/26/17 22:41 Dose: 250 mls/hr Vancomycin HCl 1 gm/ Sodium (Chloride) 250 mls @ 250 mls/hr IV ONETIME ONE Stop: 12/27/17 00:29 Last Admin: 12/27/17 00:14 Dose: 250 mls/hr Sodium Chloride (Normal Saline) 250 mls @ 500 mls/hr IV .BOLUS [facility] Stop: 12/27/17 18:00 Sodium Chloride (Normal Saline) 100 mls @ 60 mls/hr IV ASDIRECTED [facility] Stop: 12/27/17 16:00 Last Admin: 12/27/17 14:15 Dose: 60 mls/hr Piperacillin Sod/Tazobactam (Sod 4.5 gm/ Sodium Chloride) 100 mls @ 25 mls/hr IV Q8H [facility] Last Admin: 12/29/17 09:00 Dose: 25 mls/hr Piperacillin Sod/Tazobactam (Sod 4.5 gm/ Sodium Chloride) 100 mls @ 200 mls/hr IV ONETIME ONE Stop: 12/28/17 18:59 Last Admin: 12/28/17 18:56 Dose: 200 mls/hr Insulin Aspart (Novolog) 0 unit SUBCUT QIDACANDBED [facility]; Protocol Insulin Aspart (Novolog) 16 unit SUBCUT KAYLA [facility] Last Admin: 12/27/17 14:07 Dose: Not Given Insulin Aspart (Novolog) 28 unit SUBCUT PCDINNER [facility] Insulin Aspart (Novolog) 34 unit SUBCUT BRK [facility] Last Admin: 12/27/17 08:39 Dose: 34 units Insulin Detemir (Levemir) 44 unit SUBCUT BID [facility] Last Admin: 12/27/17 08:38 Dose: 44 units Iopamidol (Isovue-370 (76%)) 50 ml IVPUSH ONETIME ONE Stop: 12/27/17 13:48 Last Admin: 12/27/17 14:15 Dose: 50 ml Iopamidol (Isovue-370 (76%)) 100 ml IVPUSH ONETIME ONE Stop: 12/27/17 13:48 Last Admin: 12/27/17 14:15 Dose: 100 ml Losartan Potassium (Cozaar) 12.5 mg PO DAILY [facility] Last Admin: 12/28/17 10:58 Dose: Not Given Metoprolol Tartrate (Lopressor) 25 mg PO BID [facility] Last Admin: 12/28/17 10:58 Dose: Not Given Morphine Sulfate (Morphine) 2 mg IVPUSH Q2H PRN PRN Reason: Pain (severe 7-10) Stop: 12/27/17 20:08 Potassium Chloride (Klor-Con M20) 20 meq PO BIDMEALS [facility] Last Admin: 12/27/17 17:47 Dose: 20 meq Silver Sulfadiazine (Silvadene 1% Cream 50 Gm) 0 gm TOP BID [facility] Last Admin: 12/26/17 23:13 Dose: Not Given Sodium Chloride (Saline Flush) 10 ml FLUSH ONETIME ONE Stop: 12/27/17 13:48 Vancomycin HCl (Vancocin) Confirm Administered Dose 2 gm .ROUTE .STK-MED ONE Stop: 12/26/17 22:06 Last Admin: 12/27/17 00:21 Dose: Not Given - Exam Quality Assessment: DVT Prophylaxis General: Alert, Oriented, Cooperative, No Acute Distress HEENT: Pupils Equal, Pupils Reactive, EOMI Neck: Trachea Midline, No JVD Lungs: Normal Respiratory Effort Cardiovascular: Regular Rate, Regular Rhythm GI/Abdominal Exam: Normal Bowel Sounds, Soft, Non-Tender, No Organomegaly, No Distention (Male) Exam: Deferred Back Exam: Normal Inspection Extremities: Pedal Edema (decreased 2+ to 1+), Redness Skin: Warm Wound/Incisions: No Drainage, Erythema Neurological: No New Focal Deficit Psy/Mental Status: Alert, Normal Affect - Problem List Review Problem List Initiated/Reviewed/Updated: Yes - My Orders Last 24 Hours: My Active Orders 12/28/17 18:09 hydrALAZINE [Apresoline] 20 mg IVPUSH Q6H PRN 12/28/17 18:12 Acetaminophen/HYDROcodone [Landers 325-5 MG] 1 tab PO Q6H PRN 12/28/17 21:00 Losartan [Cozaar] 12.5 mg PO BEDTIME Metoprolol Tartrate [Lopressor] 25 mg PO Q12HR 12/29/17 12:30 Clindamycin Phosphate [Cleocin] 900 mg Sodium Chloride 0.9% [Normal Saline] 100 ml IV Q6H 12/29/17 15:30 Meropenem [Merrem] 1 gm Sodium Chloride 0.9% [Normal Saline] 100 ml IV Q8H - Plan Plan:: I/P: Acute: Cellulitis of bilateral lower extremities -Risk factors: CHF with medical non-compliance, Uncontrolled DM2, Obesity, Venous insufficiency -No h/o MRSA infection--> MRSA negative -Afebrile in ED; Lactic Acid 2.4; WBC 10.93-->10.57; CRP 2.7-->3.5 -Rocephin 2g given in ED -Start IV Vanco 2g today; Pharmacy to dose in AM -Sepsis Protocol -Repeat Lactic acid--> 2.2 -Blood Cultures ordered in ED--> No growth after 1 day -Wound culture ordered--> contact precautions for now; SA and pseudomonas--> adjust ATB based on C and S -Wound Care, [place] -Abdominal Aorta with run-off (CTA BILAT LEGS) ordered to check arterial competency -Recommend Compression stockings once infection clears Venous Insufficiency -Acute on Chronic -Venous Stasis Dermatitis present chronically -Venous Doppler ordered Uncontrolled DM2 with insulin use -Acute on Chronic -Last hemoglobin A1c 8.0 -At home Insulin Detemir decreased from 44 to 22 BID d/t controlled diet here -Insulin sliding scale PRN -Blood Glucose Checks QIDACBED -ADA diet -Dietary Consult -Diabetic Education Peripheral Neuropathy -Most likely 2/2 above -Diabetic Education -Follow up with PCP Diastolic dysfunction -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 He remains stable and continues to improve clinically Other orders as indicated above Continue at home medications CM/SW for discharge planning--> Consider Home Health ADA/2g Sodium/Fluid Restriction 2L/Heart Healthy Diet Routine AM labs PT/OT DVT Prophylaxis: Lovenox SubQ GI Prophylaxis: Pepcid Ambulated as tolerated Code Status:DNR/DNI; PCP: Dr. Abbie Mascorro
[2017-12-29] MEDS: Clindamycin Phosphate 900 MG in Sodium Chloride 0.9% 100 ML IV SCH ×2 (13:50→17:35)
[2017-12-29] MEDS: Meropenem 500 MG in Sodium Chloride 0.9% 100 ML IV SCH ×2 (15:05→22:00)
[2017-12-29] MEDS ORDERED: Meropenem 1 GM in Sodium Chloride 0.9% 100 ML IV SCH (15:30)
[2017-12-30] MEDS: Clindamycin Phosphate 900 MG in Sodium Chloride 0.9% 100 ML IV SCH ×3 (00:23→13:42)
[2017-12-30] MEDS: Meropenem 500 MG in Sodium Chloride 0.9% 100 ML IV SCH ×3 (04:13→22:18)
--- NOTE | 2017-12-30 08:26 | US ---
Bilateral lower extremity deep venous ultrasound: Duplex and color flow imaging was obtained of the right and left common femoral, greater saphenous, superficial femoral, popliteal, posterior tibial and peroneal veins. Findings: Both peroneal veins were unable to be visualized. Normal phasic flow, augmentation and compression are otherwise seen within the deep veins. Abnormal slow flow noted within the left greater superficial saphenous vein compatible with venous incompetency. Bilateral subcutaneous edema noted within the lower extremities. Impression: 1. Abnormal slow flow within the left greater superficial saphenous vein compatible with venous incompetency. 2. Mild subcutaneous edema within both lower extremities. 3. No evidence of deep venous thrombosis within either right or left leg. Diagnostic code #2 I agree with preliminary report from [facility], finalized at 12/27/17, 4:55 PM Central Time
--- NOTE | 2017-12-30 08:26 | CT ---
CT aortogram and lower extremity runoff Technique: Intravenous contrast was given and imaging obtained from the top of the aorta inferiorly through the pelvis as well as through both lower extremities. Study performed as an angiogram exam. Multiple MIP images were obtained in multiple projections. Findings: Calcified plaque is noted within the distal abdominal aorta as well as within the common iliac arteries and internal iliac arteries. Calcified plaque is noted within portion of the distal superficial femoral arteries as well as within the runoff vessels. Mild scattered areas of atheromatous narrowing are seen but no focal stenosis is identified. Three-vessel runoff identified into the ankles on both sides on the source images. Degenerative change is noted within both patellofemoral joints. Bilateral popliteal cysts are seen. Aorta shows no aneurysmal dilatation. Visualized portions of the lower kidneys are within normal limits. Visualized renal arteries are patent. Inferior mesenteric artery is patent. Small fat-containing inguinal hernias are noted. No retroperitoneal adenopathy or mesenteric abnormalities are seen. Impression: 1. Mild diffuse atheromatous change as described above. No focal areas of stenosis are seen. Three-vessel runoff is noted on the source images on both sides. 2. Other incidental findings. Diagnostic code #2 I agree with preliminary report from [facility], finalized at 12/27/17, 40 9 PM Central Time
[2017-12-30] MEDS: Simvastatin 40 MG Tab PO SCH (08:43)
[2017-12-30] MEDS: Saccharomyces Boulardii (Probiotic) 250 MG Cap PO SCH ×2 (08:43→22:17)
[2017-12-30] MEDS: Cholecalciferol (Vitamin D3) 1,000 Unit Tab PO SCH (08:44)
[2017-12-30] MEDS: Famotidine 20 MG Tab PO SCH (08:44)
[2017-12-30] MEDS: Allopurinol 300 MG Tab PO SCH (08:47)
[2017-12-30] MEDS: Isosorbide Mononitrate 30 MG Tab.ER PO SCH (08:48)
[2017-12-30] MEDS: Tamsulosin 0.4 MG Cap.ER PO SCH (08:49)
[2017-12-30] MEDS: Clopidogrel 75 MG Tab PO SCH (08:49)
[2017-12-30] MEDS: Enoxaparin 30 MG/0.3 ML Syringe SUBCUT SCH (08:50)
[2017-12-30] MEDS: Insulin Aspart 100 Units/ML 3 ML Pen SUBCUT SCH ×4 (09:00→22:15)
[2017-12-30] MEDS: Insulin Detemir 100 Units/ML 3 ML Pen SUBCUT SCH ×2 (09:02→22:12)
[2017-12-30] MEDS: Metoprolol Tartrate 25 MG Tab PO SCH ×2 (09:09→22:16)
--- NOTE | 2017-12-30 11:32 | PCM.PN ---
- General Info Date of Service: 12/30/17 Admission Dx/Problem (Free Text): Admission Diagnosis/Problem Admission Diagnosis/Problem Cellulitis Subjective Update: In to see Inderjit. He is lying in bed. He had a busy morning with PICC placement and therapies. He has no complaints. Nursing has no concerns. Will restart IVP lasix tomorrow AM. PICC placed today. Labs continue to look good. Functional Status: Reports: Pain Controlled, Tolerating Diet, Ambulating, Urinating. Denies: New Symptoms - Review of Systems General: Reports: Weakness (improving ), Fatigue. Denies: Fever HEENT: Reports: No Symptoms. Denies: Eye Pain, Post Nasal Drip, Sinus Congestion, Sore Throat Pulmonary: Reports: No Symptoms. Denies: Shortness of Breath, Cough, Sputum, Wheezing Cardiovascular: Reports: Dyspnea on Exertion, Edema. Denies: Chest Pain, Palpitations, Lightheadedness Gastrointestinal: Reports: Constipation. Denies: Diarrhea, Difficulty Swallowing, Nausea, Vomiting Genitourinary: Reports: No Symptoms Musculoskeletal: Reports: No Symptoms. Denies: Leg Pain, Foot Pain, Joint Pain Skin: Reports: No Symptoms Neurological: Reports: No Symptoms. Denies: Confusion, Dizziness, Numbness, Pre -Existing Deficit, Syncope, Tingling, Trouble Speaking, Difficulty Walking, Gait Disturbance Psychiatric: Reports: No Symptoms - Patient Data Vitals - Most Recent: Last Vital Signs Temp 97.3 F 12/30/17 08:42 Pulse 74 12/30/17 09:09 Resp 19 12/30/17 08:42 BP 128/59 L 12/30/17 09:09 Pulse Ox 99 12/30/17 08:42 Weight - Most Recent: 252 lb 9.6 oz I&O - Last 24 Hours: Intake & Output 12/29/17 12/30/17 12/30/17 22:59 06:59 14:59 Intake Total 1270 475 360 Output Total 1000 220 Balance 270 255 360 Lab Results Last 24 Hours: Laboratory Results - last 24 hr 12/29/17 12/29/17 12/30/17 Range/Units 17:21 20:47 05:39 WBC (4.23-9.07) K/mm3 RBC (4.63-6.08) M/mm3 Hgb (13.7-17.5) gm/L Hct (40.1-51.0) % MCV (79.0-92.2) fl MCH (25.7-32.2) pg MCHC (32.2-35.5) g/dl RDW Std Deviation (35.1-43.9) fL Plt Count (163-337) K/mm3 MPV (9.4-12.3) fl Neut % (Auto) (34.0-67.9) % Lymph % (Auto) (21.8-53.1) % [place] % (Auto) (5.3-12.2) % Eos % (Auto) (0.8-7.0) Baso % (Auto) (0.1-1.2) % Neut # (Auto) (1.78-5.38) K/mm3 Lymph # (Auto) (1.32-3.57) K/mm3 [place] # (Auto) (0.30-0.82) K/mm3 Eos # (Auto) (0.04-0.54) K/mm3 Baso # (Auto) (0.01-0.08) K/mm3 Sodium (136-145) mEq/L Potassium (3.5-5.1) mEq/L Chloride (98-107) mEq/L Carbon Dioxide (21-32) mEq/L Anion Gap (5-15) BUN (7-18) mg/dL Creatinine (0.7-1.3) mg/dL Est Cr Clr Drug Dosing mL/min Estimated GFR (MDRD) (>60) mL/min BUN/Creatinine Ratio (14-18) Glucose (83-115) mg/dL POC Glucose 206 H 217 H 160 H (83-110) mg/dL Calcium (8.5-10.1) mg/dL Magnesium (1.8-2.4) mg/dl C-Reactive Protein (<1.0) mg/dL 12/30/17 12/30/17 12/30/17 Range/Units 07:32 08:35 11:21 WBC 7.76 (4.23-9.07) K/mm3 RBC 4.14 L (4.63-6.08) M/mm3 Hgb 12.1 L (13.7-17.5) gm/L Hct 37.0 L (40.1-51.0) % MCV 89.4 (79.0-92.2) fl MCH 29.2 (25.7-32.2) pg MCHC 32.7 (32.2-35.5) g/dl RDW Std Deviation 51.1 H (35.1-43.9) fL Plt Count 207 (163-337) K/mm3 MPV 9.2 L (9.4-12.3) fl Neut % (Auto) 57.3 (34.0-67.9) % Lymph % (Auto) 26.4 (21.8-53.1) % [place] % (Auto) 11.0 (5.3-12.2) % Eos % (Auto) 4.4 (0.8-7.0) Baso % (Auto) 0.8 (0.1-1.2) % Neut # (Auto) 4.45 (1.78-5.38) K/mm3 Lymph # (Auto) 2.05 (1.32-3.57) K/mm3 [place] # (Auto) 0.85 H (0.30-0.82) K/mm3 Eos # (Auto) 0.34 (0.04-0.54) K/mm3 Baso # (Auto) 0.06 (0.01-0.08) K/mm3 Sodium 139 (136-145) mEq/L Potassium 4.6 (3.5-5.1) mEq/L Chloride 104 (98-107) mEq/L Carbon Dioxide 25 (21-32) mEq/L Anion Gap 14.6 (5-15) BUN 34 H (7-18) mg/dL Creatinine 1.5 H (0.7-1.3) mg/dL Est Cr Clr Drug Dosing 34.27 mL/min Estimated GFR (MDRD) 45 (>60) mL/min BUN/Creatinine Ratio 22.7 H (14-18) Glucose 154 H (83-115) mg/dL POC Glucose 294 H (83-110) mg/dL Calcium 9.3 (8.5-10.1) mg/dL Magnesium 2.3 (1.8-2.4) mg/dl C-Reactive Protein 3.3 H* (<1.0) mg/dL Jas Results Last 24 Hours: Microbiology 12/26/17 15:48 Aerobic Blood Culture - Preliminary Blood - Venous NO GROWTH AFTER 3 DAYS Anaerobic Blood Culture - Final 12/26/17 16:50 Aerobic Blood Culture - Preliminary Blood - Venous - Lab Draw NO GROWTH AFTER 3 DAYS Anaerobic Blood Culture - Preliminary NO GROWTH AFTER 3 DAYS 12/28/17 14:56 Aerobic Blood Culture - Preliminary Blood - Venous - Lab Draw NO GROWTH AFTER 1 DAY Anaerobic Blood Culture - Preliminary NO GROWTH AFTER 1 DAY 12/28/17 14:50 Aerobic Blood Culture - Preliminary Blood - Venous NO GROWTH AFTER 1 DAY Anaerobic Blood Culture - Final 12/27/17 01:44 Wound Culture - Final Leg, Unspecified Staphylococcus Aureus Pseudomonas Aeruginosa Med Orders - Current: Current Medications Acetaminophen (Tylenol) 650 mg PO Q4H PRN PRN Reason: Pain (Mild 1-3)/fever Hydrocodone Bitart/Acetaminophen ([place] 325-5 Mg) 1 tab PO Q6H PRN PRN Reason: Pain (moderate 4-6) Allopurinol (Zyloprim) 300 mg PO DAILY [facility] Last Admin: 12/30/17 08:47 Dose: 300 mg Bisacodyl (Dulcolax) 5 mg PO DAILY PRN PRN Reason: Constipation Cholecalciferol (Vitamin D3) 1,000 units PO DAILY [facility] Last Admin: 12/30/17 08:44 Dose: 1,000 units Clindamycin HCl (Cleocin) 300 mg PO Q6H [facility] Clopidogrel Bisulfate (Plavix) 75 mg PO DAILY [facility] Last Admin: 12/30/17 08:49 Dose: 75 mg Dextrose/Water (Dextrose 50% In Water) 50 ml IVPUSH ASDIRECTED PRN PRN Reason: Hypoglycemia Docusate Sodium (Colace) 100 mg PO BID PRN PRN Reason: Constipation Enoxaparin Sodium (Lovenox) 30 mg SUBCUT DAILY [facility] Last Admin: 12/30/17 08:50 Dose: 30 mg Famotidine (Pepcid) 20 mg PO DAILY [facility] Last Admin: 12/30/17 08:44 Dose: 20 mg Hydralazine HCl (Apresoline) 20 mg IVPUSH Q6H PRN PRN Reason: Hypertension Clindamycin Phosphate 900 mg/ (Sodium Chloride) 106 mls @ 100 mls/hr IV Q6H [facility] Stop: 12/30/17 12:31 Last Admin: 12/30/17 05:39 Dose: 100 mls/hr Meropenem 500 mg/ Sodium (Chloride) 100 mls @ 200 mls/hr IV Q8H [facility] Last Admin: 12/30/17 04:13 Dose: 200 mls/hr Insulin Aspart (Novolog) 0 unit SUBCUT QIDACANDBED [facility]; Protocol Last Admin: 12/30/17 09:00 Dose: 2 units Insulin Detemir (Levemir) 22 unit SUBCUT BID [facility] Last Admin: 12/30/17 09:02 Dose: 22 unit Isosorbide Mononitrate (Imdur) 30 mg PO DAILY [facility] Last Admin: 12/30/17 08:48 Dose: 30 mg Losartan Potassium (Cozaar) 12.5 mg PO BEDTIME [facility] Magnesium Hydroxide (Milk Of Magnesia) 30 ml PO Q12H PRN PRN Reason: Constipation Last Admin: 12/28/17 09:18 Dose: 30 ml Metolazone (Zaroxolyn) 2.5 mg PO MoWeFr@0700 [facility] Last Admin: 12/27/17 07:40 Dose: 2.5 mg Metoprolol Tartrate (Lopressor) 25 mg PO Q12HR [facility] Last Admin: 12/30/17 09:09 Dose: 25 mg Mineral Oil/White Petrolatum (Hydrocerin Crm) 0 gm TOP ASDIRECTED PRN PRN Reason: DRY SKIN Last Admin: 12/29/17 10:48 Dose: 1 applic Ondansetron HCl (Zofran Odt) 4 mg PO Q4H PRN PRN Reason: nausea, able to take PO Ondansetron HCl (Zofran) 4 mg IV Q4H PRN PRN Reason: Nausea/Vomiting Polyethylene Glycol (Miralax) 17 gm PO DAILY PRN PRN Reason: Constipation Potassium Chloride (Klor-Con M20) 20 meq PO BID@0800,1700 [facility] Last Admin: 12/29/17 08:52 Dose: 20 meq Saccharomyces Boulardii (Florastor) 250 mg PO BID [facility] Last Admin: 12/30/17 08:43 Dose: 250 mg Senna/Docusate Sodium (Senna Plus) 1 tab PO BID PRN PRN Reason: Constipation Silver Sulfadiazine (Silvadene 1% Cream 50 Gm) 0 gm TOP BID PRN PRN Reason: varela Simvastatin (Zocor) 40 mg PO DAILY [facility] Last Admin: 12/30/17 08:43 Dose: 40 mg Sodium Chloride (Saline Flush) 10 ml FLUSH ASDIRECTED PRN PRN Reason: Keep Vein Open Last Admin: 12/27/17 14:15 Dose: 10 ml Spironolactone (Aldactone) 25 mg PO QAM [facility] Last Admin: 12/29/17 08:53 Dose: 25 mg Tamsulosin HCl (Flomax) 0.4 mg PO DAILY [facility] Last Admin: 12/30/17 08:49 Dose: 0.4 mg Temazepam (Restoril) 7.5 mg PO BEDTIME PRN PRN Reason: Sleep Discontinued Medications Hydrocodone Bitart/Acetaminophen ([place] 325-5 Mg) 1 tab PO Q4H PRN PRN Reason: Pain (moderate 4-6) Ceftriaxone Sodium 2 gm/ (Lidocaine HCl 4.2 ml) 0 gm IM ONETIME ONE Stop: 12/26/17 17:13 Last Admin: 12/26/17 17:27 Dose: 2 inj Enoxaparin Sodium (Lovenox) 40 mg SUBCUT DAILY [facility] Famotidine (Pepcid) 20 mg PO BID [facility] Furosemide (Lasix) 80 mg PO BIDDIURETIC [facility] Last Admin: 12/27/17 08:02 Dose: Not Given Furosemide (Lasix) 40 mg IVPUSH ONETIME ONE Stop: 12/26/17 23:01 Last Admin: 12/26/17 23:38 Dose: 40 mg Hydralazine HCl (Apresoline) 10 mg IVPUSH Q4H PRN PRN Reason: Hypertension Ceftriaxone Sodium 2 gm/ (Sodium Chloride) 100 mls @ 200 mls/hr IV ONETIME ONE Stop: 12/26/17 16:35 Last Admin: 12/26/17 18:11 Dose: Not Given Lidocaine HCl (Xylocaine-Mpf 1%) Confirm Administered Dose 8 mls @ as directed .ROUTE .STK-MED ONE Stop: 12/26/17 17:38 Vancomycin HCl 2 gm/ Sodium (Chloride) 250 mls @ 125 mls/hr IV ONETIME ONE Stop: 12/26/17 22:59 Last Admin: 12/26/17 23:14 Dose: Not Given Furosemide 100 mg/ Sodium (Chloride) 100 mls @ 4 mls/hr IV ASDIRECTED [facility] Last Admin: 12/28/17 10:18 Dose: 4 mg/hr, 4 mls/hr Vancomycin HCl 1 gm/Vancomycin HCl 250 mg/ Sodium Chloride 250 mls @ 250 mls/ hr IV Q24H [facility] Last Admin: 12/28/17 21:49 Dose: 250 mls/hr Vancomycin HCl 1 gm/ Sodium (Chloride) 250 mls @ 250 mls/hr IV ONETIME ONE Stop: 12/26/17 23:29 Last Admin: 12/26/17 22:41 Dose: 250 mls/hr Vancomycin HCl 1 gm/ Sodium (Chloride) 250 mls @ 250 mls/hr IV ONETIME ONE Stop: 12/27/17 00:29 Last Admin: 12/27/17 00:14 Dose: 250 mls/hr Sodium Chloride (Normal Saline) 250 mls @ 500 mls/hr IV .BOLUS [facility] Stop: 12/27/17 18:00 Sodium Chloride (Normal Saline) 100 mls @ 60 mls/hr IV ASDIRECTED [facility] Stop: 12/27/17 16:00 Last Admin: 12/27/17 14:15 Dose: 60 mls/hr Piperacillin Sod/Tazobactam (Sod 4.5 gm/ Sodium Chloride) 100 mls @ 25 mls/hr IV Q8H [facility] Last Admin: 12/29/17 09:00 Dose: 25 mls/hr Piperacillin Sod/Tazobactam (Sod 4.5 gm/ Sodium Chloride) 100 mls @ 200 mls/hr IV ONETIME ONE Stop: 12/28/17 18:59 Last Admin: 12/28/17 18:56 Dose: 200 mls/hr Meropenem 1 gm/ Sodium (Chloride) 100 mls @ 200 mls/hr IV Q8H [facility] Insulin Aspart (Novolog) 0 unit SUBCUT QIDACANDBED [facility]; Protocol Insulin Aspart (Novolog) 16 unit SUBCUT KAYLA [facility] Last Admin: 12/27/17 14:07 Dose: Not Given Insulin Aspart (Novolog) 28 unit SUBCUT PCDINNER [facility] Insulin Aspart (Novolog) 34 unit SUBCUT BRK [facility] Last Admin: 12/27/17 08:39 Dose: 34 units Insulin Detemir (Levemir) 44 unit SUBCUT BID [facility] Last Admin: 12/27/17 08:38 Dose: 44 units Iopamidol (Isovue-370 (76%)) 50 ml IVPUSH ONETIME ONE Stop: 12/27/17 13:48 Last Admin: 12/27/17 14:15 Dose: 50 ml Iopamidol (Isovue-370 (76%)) 100 ml IVPUSH ONETIME ONE Stop: 12/27/17 13:48 Last Admin: 12/27/17 14:15 Dose: 100 ml Losartan Potassium (Cozaar) 12.5 mg PO DAILY [facility] Last Admin: 12/28/17 10:58 Dose: Not Given Metoprolol Tartrate (Lopressor) 25 mg PO BID [facility] Last Admin: 12/28/17 10:58 Dose: Not Given Morphine Sulfate (Morphine) 2 mg IVPUSH Q2H PRN PRN Reason: Pain (severe 7-10) Stop: 12/27/17 20:08 Potassium Chloride (Klor-Con M20) 20 meq PO BIDMEALS [facility] Last Admin: 12/27/17 17:47 Dose: 20 meq Silver Sulfadiazine (Silvadene 1% Cream 50 Gm) 0 gm TOP BID [facility] Last Admin: 12/26/17 23:13 Dose: Not Given Sodium Chloride (Saline Flush) 10 ml FLUSH ONETIME ONE Stop: 12/27/17 13:48 Vancomycin HCl (Pharmacy To Dose - Vancomycin) 0 dose .XX ASDIRECTED PRN PRN Reason: RX TO DOSE VANCOMYCIN Vancomycin HCl (Vancocin) Confirm Administered Dose 2 gm .ROUTE .STK-MED ONE Stop: 12/26/17 22:06 Last Admin: 12/27/17 00:21 Dose: Not Given - Exam Quality Assessment: DVT Prophylaxis General: Alert, Oriented, Cooperative, No Acute Distress HEENT: Pupils Equal, Pupils Reactive, EOMI, Mucous Membr. Moist/[place] Neck: Supple, Trachea Midline Lungs: Normal Respiratory Effort, Decreased Breath Sounds. No: Rhonchi, Wheezing Cardiovascular: Regular Rate, Regular Rhythm GI/Abdominal Exam: Normal Bowel Sounds, Soft, Non-Tender, No Distention (Male) Exam: Deferred Extremities: Pedal Edema (1+), Limited Range of Motion, Increased Warmth, Redness, Other (Bandages in place bilaterally ). No: Normal Capillary Refill Peripheral Pulses: 0: Posterior Tibial (L), Posterior Tibial (R), Dorsalis Pedis (L), Dorsalis Pedis (R), 1+: Radial (L), Radial (R) Skin: Warm, Dry, Intact Wound/Incisions: Dressing Dry and Intact, No Drainage Neurological: No New Focal Deficit Psy/Mental Status: Alert, Normal Affect, Normal Mood - Problem List & Annotations (1) Cellulitis SNOMED Code(s): 487955638 Code(s): L03.90 - CELLULITIS, UNSPECIFIED Status: Acute Priority: High Current Visit: Yes Qualifiers: Site of cellulitis: extremity Site of cellulitis of extremity: lower extremity Laterality: unspecified laterality Qualified Code(s): L03.119 - Cellulitis of unspecified part of limb (2) Elevated lactic acid level SNOMED Code(s): 8175644 Code(s): R79.89 - OTHER SPECIFIED ABNORMAL FINDINGS OF BLOOD CHEMISTRY Status: Acute Priority: High Current Visit: Yes (3) Pedal edema SNOMED Code(s): 070738481 Code(s): R60.0 - LOCALIZED EDEMA Status: Acute Priority: High Current Visit: Yes (4) Venous stasis dermatitis of both lower extremities SNOMED Code(s): 15695666 Code(s): I87.2 - VENOUS INSUFFICIENCY (CHRONIC) (PERIPHERAL) Status: Acute Priority: High Current Visit: Yes (5) Diastolic heart failure SNOMED Code(s): 930807740 Code(s): I50.30 - UNSPECIFIED DIASTOLIC (CONGESTIVE) HEART FAILURE Status: Chronic Priority: Medium Current Visit: Yes Qualifiers: Heart failure chronicity: chronic Qualified Code(s): I50.32 - Chronic diastolic (congestive) heart failure (6) HTN (hypertension) SNOMED Code(s): 93021684 Code(s): I10 - ESSENTIAL (PRIMARY) HYPERTENSION Status: Chronic Priority : High Current Visit: Yes Qualifiers: Hypertension type: unspecified Qualified Code(s): I10 - Essential (primary ) hypertension (7) Morbid obesity with BMI of 40.0-44.9, adult SNOMED Code(s): 703597046 Code(s): E66.01 - MORBID (SEVERE) OBESITY DUE TO EXCESS CALORIES; Z68.41 - BODY MASS INDEX (BMI) 40.0-44.9, ADULT Status: Chronic Priority: High Current Visit: Yes (8) Non compliance w medication regimen SNOMED Code(s): 635120896 Code(s): Z91.14 - PATIENT'S OTHER NONCOMPLIANCE WITH MEDICATION REGIMEN Status: Chronic Priority: High Current Visit: Yes (9) Sleep apnea SNOMED Code(s): 36210469 Code(s): G47.30 - SLEEP APNEA, UNSPECIFIED Status: Chronic Priority: Low Current Visit: Yes Qualifiers: Sleep apnea type: unspecified type Qualified Code(s): G47.30 - Sleep apnea , unspecified (10) CAD (coronary artery disease) SNOMED Code(s): 52925201 Code(s): I25.10 - ATHSCL HEART DISEASE OF [place] CORONARY ARTERY W/O ANG PCTRS Status: Chronic Priority: Medium Current Visit: No Qualifiers: Coronary Disease-Associated Artery/Lesion type: unspecified vessel or lesion type [place] vs. transplanted heart: [place] heart Associated angina: angina presence unspecified Qualified Code(s): I25.10 - Atherosclerotic heart disease of [place] coronary artery without angina pectoris (11) HLD (hyperlipidemia) SNOMED Code(s): 20111007 Code(s): E78.5 - HYPERLIPIDEMIA, UNSPECIFIED Status: Chronic Priority: Low Current Visit: No Qualifiers: Hyperlipidemia type: unspecified Qualified Code(s): E78.5 - Hyperlipidemia , unspecified (12) Uncontrolled type 2 diabetes mellitus with insulin therapy SNOMED Code(s): 407183034 Code(s): E11.65 - TYPE 2 DIABETES MELLITUS WITH HYPERGLYCEMIA; Z79.4 - SOCIAL MEDIA DIRECTOR (CURRENT) USE OF INSULIN Status: Chronic Priority: High Current Visit : No - Problem List Review Problem List Initiated/Reviewed/Updated: Yes - Plan Plan:: I/P: Acute: Cellulitis of bilateral lower extremities -Risk factors: CHF with medical non-compliance, Uncontrolled DM2, Obesity, Venous insufficiency -No h/o MRSA infection--> MRSA negative -Afebrile in ED; Lactic Acid 2.4; WBC 10.93-->10.57-->8.55-->7.74-->7.76 -CRP 2.7-->3.5-->8.1-->5.1-->3.3 -Rocephin 2g given in ED--> switch to IV meropenem and clindamycin -> switch to PO clindamycin -IV Vanco 2g --> discontinue -Sepsis Protocol -Repeat Lactic acid--> 2.2 -Blood Cultures ordered in ED--> No growth after 3 days; Repeat BC -> no growth after 1 day -Wound culture ordered--> contact precautions for now; SA and pseudomonas--> adjust ATB based on C and S -Wound Care, [place] -CT angiography Ab/Pelvis with runoff to LE--> No acute findings. -Mild atherosclerotic changes in the abdominal aorta, pelvic arteries, both lower leg arteries with 3 vessel runoff bilaterally. -Recommend Compression stockings once infection clears and ambulation -PICC line placement today (12/30/17) -Showers/Bathing QAD - Reportedly showered today; next shower due 01/01/18 Venous Insufficiency -Acute on Chronic -Venous Stasis Dermatitis present chronically -US Duplex Bilateral Lower Extremity--> No acute abnormal findings. limited evaluation of calf veins due to bilateral edema. -Ambulate Uncontrolled DM2 with insulin use -Acute on Chronic -Follows really no diet plan at home -Last hemoglobin A1c 8.0 -At home Insulin Detemir decreased from 44 to 22 BID d/t controlled diet here -Insulin sliding scale PRN -Blood Glucose Checks QIDACBED -ADA diet -Dietary Consult -Diabetic Education Peripheral Neuropathy -Most likely 2/2 above -Diabetic Education -Follow up with PCP Diastolic dysfunction -Hasn't seen controls engineer in years; doesn't know when last ECHO was -ECHO on 12/27/17 1. LVEF by visual estimation is 55% 2. Mild concentric LV hypertrophy 3. Grade 2 LV diastolic filling 4. Moderate aortic valve sclerosis without stenosis 5. nodular thickening of all three aortic valve cusps - unchanged from 6. mild MVR 7. mild TVR 8. Right ventricular systolic pressure mildly elevated at 37.2mmHg. -Continue at home Lasix -Start Lasix IV 4mg/hr in AM--> stop; Start 40mg IVP lasix daily on 12/31/17 -CHF education -2L Fluid Restriction diet, 2g Sodium diet, Heart Healthy Diet -F/U with [facility] Essential Hypertension, improved -Acute on Chronic -140/62 in ED -Continue at home medications -Hydralazine PRN; Hold ARB when diuresing. 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 He remains stable and continues to improve clinically Other orders as indicated above Continue at home medications CM/SW for discharge planning--> Home with Home Health vs. SNF (agreeable to [facility] if openings) ADA/2g Sodium/Fluid Restriction 2L/Heart Healthy Diet Routine AM labs PT/OT DVT Prophylaxis: Lovenox SubQ GI Prophylaxis: Pepcid Code Status:DNR/DNI; PCP: Dr. Abbie Mascorro
--- NOTE | 2017-12-30 13:26 | PCM.SN ---
- Free Text/Narrative Note: PICC Line Insertion Date: 12-30-17 Start: 1240 Stop: [address] Collins for PICC placement for terminal worker antibiotic use. Chart reviewed. Patient educated. Agrees to proceed. Consent signed. Site cleansed with ChloraPrep. Lidocaine 1% local anesthetic injected prior to 20ga IV catheter insertion. Sterile gown, gloves and drape used. 4fr [place] NXT ClearVue PICC inserted 45cm per sterile technique right proximal antecubital. Secured with statlock. Flushes well with NaCl with good blood return. Dressed with opsite with CHG. 7 cm PICC catheter remains out for measurement purposes. Chest Xray taken. Confirmed SVC placement per radiologist. Ace Tong ANALYTICS LEADER
--- NOTE | 2017-12-30 13:35 | CR ---
Chest: Portable view of the chest was obtained. Comparison: No prior chest x-ray. PICC line is seen entering from the right side. Tip lies within superior vena cava which is satisfactory. Heart size and mediastinum are within normal limits for portable technique. Lungs show no acute parenchymal densities. Bony structures are grossly intact. Impression: 1. Satisfactory position of PICC line. 2. Nothing acute is seen. Diagnostic code #2
[2017-12-30] MEDS: Clindamycin HCl 150 MG Cap PO SCH ×2 (16:42→17:39)
[2017-12-31] MEDS: Clindamycin HCl 150 MG Cap PO SCH ×4 (00:34→17:41)
[2017-12-31] MEDS: Meropenem 500 MG in Sodium Chloride 0.9% 100 ML IV SCH ×3 (05:43→21:00)
--- NOTE | 2017-12-31 06:19 | PCM.PN ---
- General Info Date of Service: 12/31/17 Admission Dx/Problem (Free Text): Admission Diagnosis/Problem Admission Diagnosis/Problem Cellulitis Subjective Update: In to see Inderjit. He is resting in the chair but does wake up during my visit. His is at bedside. We discussed plan of care and that [facility] is evaluating his application. Hopeful for placement tomorrow. He has no concerns and states he is feeling better. His is impressed with how much the redness is receding. Nursing has no concerns and notes he has been ambulating quite a bit and doing well. Labs continue to look good. CRP is trending down. He as been working well with PT/OT. Functional Status: Reports: Pain Controlled, Tolerating Diet, Ambulating, Urinating. Denies: New Symptoms - Review of Systems General: Reports: Weakness (improving ). Denies: Fever, Fatigue, Malaise HEENT: Reports: No Symptoms. Denies: Eye Pain, Sinus Congestion, Sore Throat Pulmonary: Reports: No Symptoms. Denies: Shortness of Breath, Cough, Sputum, Wheezing Cardiovascular: Reports: Edema. Denies: Chest Pain, Palpitations, Lightheadedness Gastrointestinal: Reports: No Symptoms. Denies: Abdominal Pain, Constipation, Diarrhea, Nausea, Vomiting Genitourinary: Reports: No Symptoms. Denies: Dysuria, Frequency, Burning, Pain Musculoskeletal: Reports: No Symptoms. Denies: Leg Pain, Foot Pain Skin: Reports: No Symptoms Neurological: Reports: No Symptoms Psychiatric: Reports: No Symptoms - Patient Data Vitals - Most Recent: Last Vital Signs Temp 97.9 F 12/31/17 04:23 Pulse 59 L 12/31/17 04:23 Resp 16 12/31/17 04:23 BP 125/65 12/31/17 04:23 Pulse Ox 97 12/31/17 04:23 Weight - Most Recent: 252 lb 6.4 oz I&O - Last 24 Hours: Intake & Output 12/30/17 12/30/17 12/31/17 14:59 22:59 06:59 Intake Total 760 520 400 Output Total 900 Balance 760 -380 400 Lab Results Last 24 Hours: Laboratory Results - last 24 hr 12/30/17 12/30/17 12/30/17 Range/Units 07:32 08:35 11:21 WBC 7.76 (4.23-9.07) K/mm3 RBC 4.14 L (4.63-6.08) M/mm3 Hgb 12.1 L (13.7-17.5) gm/L Hct 37.0 L (40.1-51.0) % MCV 89.4 (79.0-92.2) fl MCH 29.2 (25.7-32.2) pg MCHC 32.7 (32.2-35.5) g/dl RDW Std Deviation 51.1 H (35.1-43.9) fL Plt Count 207 (163-337) K/mm3 MPV 9.2 L (9.4-12.3) fl Neut % (Auto) 57.3 (34.0-67.9) % Lymph % (Auto) 26.4 (21.8-53.1) % [place] % (Auto) 11.0 (5.3-12.2) % Eos % (Auto) 4.4 (0.8-7.0) Baso % (Auto) 0.8 (0.1-1.2) % Neut # (Auto) 4.45 (1.78-5.38) K/mm3 Lymph # (Auto) 2.05 (1.32-3.57) K/mm3 [place] # (Auto) 0.85 H (0.30-0.82) K/mm3 Eos # (Auto) 0.34 (0.04-0.54) K/mm3 Baso # (Auto) 0.06 (0.01-0.08) K/mm3 Sodium 139 (136-145) mEq/L Potassium 4.6 (3.5-5.1) mEq/L Chloride 104 (98-107) mEq/L Carbon Dioxide 25 (21-32) mEq/L Anion Gap 14.6 (5-15) BUN 34 H (7-18) mg/dL Creatinine 1.5 H (0.7-1.3) mg/dL Est Cr Clr Drug Dosing 34.27 mL/min Estimated GFR (MDRD) 45 (>60) mL/min BUN/Creatinine Ratio 22.7 H (14-18) Glucose 154 H (83-115) mg/dL POC Glucose 294 H (83-110) mg/dL Calcium 9.3 (8.5-10.1) mg/dL Magnesium 2.3 (1.8-2.4) mg/dl C-Reactive Protein 3.3 H* (<1.0) mg/dL 12/30/17 12/30/17 Range/Units 16:22 20:56 WBC (4.23-9.07) K/mm3 RBC (4.63-6.08) M/mm3 Hgb (13.7-17.5) gm/L Hct (40.1-51.0) % MCV (79.0-92.2) fl MCH (25.7-32.2) pg MCHC (32.2-35.5) g/dl RDW Std Deviation (35.1-43.9) fL Plt Count (163-337) K/mm3 MPV (9.4-12.3) fl Neut % (Auto) (34.0-67.9) % Lymph % (Auto) (21.8-53.1) % [place] % (Auto) (5.3-12.2) % Eos % (Auto) (0.8-7.0) Baso % (Auto) (0.1-1.2) % Neut # (Auto) (1.78-5.38) K/mm3 Lymph # (Auto) (1.32-3.57) K/mm3 [place] # (Auto) (0.30-0.82) K/mm3 Eos # (Auto) (0.04-0.54) K/mm3 Baso # (Auto) (0.01-0.08) K/mm3 Sodium (136-145) mEq/L Potassium (3.5-5.1) mEq/L Chloride (98-107) mEq/L Carbon Dioxide (21-32) mEq/L Anion Gap (5-15) BUN (7-18) mg/dL Creatinine (0.7-1.3) mg/dL Est Cr Clr Drug Dosing mL/min Estimated GFR (MDRD) (>60) mL/min BUN/Creatinine Ratio (14-18) Glucose (83-115) mg/dL POC Glucose 170 H 206 H (83-110) mg/dL Calcium (8.5-10.1) mg/dL Magnesium (1.8-2.4) mg/dl C-Reactive Protein (<1.0) mg/dL Jas Results Last 24 Hours: Microbiology 12/26/17 15:48 Aerobic Blood Culture - Preliminary Blood - Venous NO GROWTH AFTER 4 DAYS Anaerobic Blood Culture - Final 12/26/17 16:50 Aerobic Blood Culture - Preliminary Blood - Venous - Lab Draw NO GROWTH AFTER 4 DAYS Anaerobic Blood Culture - Preliminary NO GROWTH AFTER 4 DAYS 12/28/17 14:56 Aerobic Blood Culture - Preliminary Blood - Venous - Lab Draw NO GROWTH AFTER 2 DAYS Anaerobic Blood Culture - Preliminary NO GROWTH AFTER 2 DAYS 12/28/17 14:50 Aerobic Blood Culture - Preliminary Blood - Venous NO GROWTH AFTER 2 DAYS Anaerobic Blood Culture - Final Med Orders - Current: Current Medications Acetaminophen (Tylenol) 650 mg PO Q4H PRN PRN Reason: Pain (Mild 1-3)/fever Hydrocodone Bitart/Acetaminophen ([place] 325-5 Mg) 1 tab PO Q6H PRN PRN Reason: Pain (moderate 4-6) Allopurinol (Zyloprim) 300 mg PO DAILY [facility] Last Admin: 12/30/17 08:47 Dose: 300 mg Bisacodyl (Dulcolax) 5 mg PO DAILY PRN PRN Reason: Constipation Cholecalciferol (Vitamin D3) 1,000 units PO DAILY [facility] Last Admin: 12/30/17 08:44 Dose: 1,000 units Clindamycin HCl (Cleocin) 300 mg PO Q6H [facility] Last Admin: 12/31/17 05:45 Dose: 300 mg Clopidogrel Bisulfate (Plavix) 75 mg PO DAILY [facility] Last Admin: 12/30/17 08:49 Dose: 75 mg Dextrose/Water (Dextrose 50% In Water) 50 ml IVPUSH ASDIRECTED PRN PRN Reason: Hypoglycemia Docusate Sodium (Colace) 100 mg PO BID PRN PRN Reason: Constipation Enoxaparin Sodium (Lovenox) 30 mg SUBCUT DAILY [facility] Last Admin: 12/30/17 08:50 Dose: 30 mg Famotidine (Pepcid) 20 mg PO DAILY [facility] Last Admin: 12/30/17 08:44 Dose: 20 mg Furosemide (Lasix) 40 mg IVPUSH DAILY [facility] Hydralazine HCl (Apresoline) 20 mg IVPUSH Q6H PRN PRN Reason: Hypertension Meropenem 500 mg/ Sodium (Chloride) 100 mls @ 200 mls/hr IV Q8H [facility] Last Admin: 12/31/17 05:43 Dose: 200 mls/hr Insulin Aspart (Novolog) 0 unit SUBCUT QIDACANDBED [facility]; Protocol Last Admin: 12/30/17 22:15 Dose: 4 units Insulin Detemir (Levemir) 22 unit SUBCUT BID [facility] Last Admin: 12/30/17 22:12 Dose: 22 unit Isosorbide Mononitrate (Imdur) 30 mg PO DAILY [facility] Last Admin: 12/30/17 08:48 Dose: 30 mg Losartan Potassium (Cozaar) 12.5 mg PO BEDTIME [facility] Magnesium Hydroxide (Milk Of Magnesia) 30 ml PO Q12H PRN PRN Reason: Constipation Last Admin: 12/28/17 09:18 Dose: 30 ml Metolazone (Zaroxolyn) 2.5 mg PO MoWeFr@0700 [facility] Last Admin: 12/27/17 07:40 Dose: 2.5 mg Metoprolol Tartrate (Lopressor) 25 mg PO Q12HR [facility] Last Admin: 12/30/17 22:16 Dose: Not Given Mineral Oil/White Petrolatum (Hydrocerin Crm) 0 gm TOP ASDIRECTED PRN PRN Reason: DRY SKIN Last Admin: 12/29/17 10:48 Dose: 1 applic Ondansetron HCl (Zofran Odt) 4 mg PO Q4H PRN PRN Reason: nausea, able to take PO Ondansetron HCl (Zofran) 4 mg IV Q4H PRN PRN Reason: Nausea/Vomiting Polyethylene Glycol (Miralax) 17 gm PO DAILY PRN PRN Reason: Constipation Potassium Chloride (Klor-Con M20) 20 meq PO BID@0800,1700 [facility] Last Admin: 12/29/17 08:52 Dose: 20 meq Saccharomyces Boulardii (Florastor) 250 mg PO BID [facility] Last Admin: 12/30/17 22:17 Dose: 250 mg Senna/Docusate Sodium (Senna Plus) 1 tab PO BID PRN PRN Reason: Constipation Silver Sulfadiazine (Silvadene 1% Cream 50 Gm) 0 gm TOP BID PRN PRN Reason: varela Simvastatin (Zocor) 40 mg PO DAILY [facility] Last Admin: 12/30/17 08:43 Dose: 40 mg Sodium Chloride (Saline Flush) 10 ml FLUSH ASDIRECTED PRN PRN Reason: Keep Vein Open Last Admin: 12/27/17 14:15 Dose: 10 ml Spironolactone (Aldactone) 25 mg PO QAM [facility] Last Admin: 12/29/17 08:53 Dose: 25 mg Tamsulosin HCl (Flomax) 0.4 mg PO DAILY [facility] Last Admin: 12/30/17 08:49 Dose: 0.4 mg Temazepam (Restoril) 7.5 mg PO BEDTIME PRN PRN Reason: Sleep Discontinued Medications Hydrocodone Bitart/Acetaminophen ([place] 325-5 Mg) 1 tab PO Q4H PRN PRN Reason: Pain (moderate 4-6) Ceftriaxone Sodium 2 gm/ (Lidocaine HCl 4.2 ml) 0 gm IM ONETIME ONE Stop: 12/26/17 17:13 Last Admin: 12/26/17 17:27 Dose: 2 inj Enoxaparin Sodium (Lovenox) 40 mg SUBCUT DAILY [facility] Famotidine (Pepcid) 20 mg PO BID [facility] Furosemide (Lasix) 80 mg PO BIDDIURETIC [facility] Last Admin: 12/27/17 08:02 Dose: Not Given Furosemide (Lasix) 40 mg IVPUSH ONETIME ONE Stop: 12/26/17 23:01 Last Admin: 12/26/17 23:38 Dose: 40 mg Hydralazine HCl (Apresoline) 10 mg IVPUSH Q4H PRN PRN Reason: Hypertension Ceftriaxone Sodium 2 gm/ (Sodium Chloride) 100 mls @ 200 mls/hr IV ONETIME ONE Stop: 12/26/17 16:35 Last Admin: 12/26/17 18:11 Dose: Not Given Lidocaine HCl (Xylocaine-Mpf 1%) Confirm Administered Dose 8 mls @ as directed .ROUTE .STK-MED ONE Stop: 12/26/17 17:38 Vancomycin HCl 2 gm/ Sodium (Chloride) 250 mls @ 125 mls/hr IV ONETIME ONE Stop: 12/26/17 22:59 Last Admin: 12/26/17 23:14 Dose: Not Given Furosemide 100 mg/ Sodium (Chloride) 100 mls @ 4 mls/hr IV ASDIRECTED [facility] Last Admin: 12/28/17 10:18 Dose: 4 mg/hr, 4 mls/hr Vancomycin HCl 1 gm/Vancomycin HCl 250 mg/ Sodium Chloride 250 mls @ 250 mls/ hr IV Q24H [facility] Last Admin: 12/28/17 21:49 Dose: 250 mls/hr Vancomycin HCl 1 gm/ Sodium (Chloride) 250 mls @ 250 mls/hr IV ONETIME ONE Stop: 12/26/17 23:29 Last Admin: 12/26/17 22:41 Dose: 250 mls/hr Vancomycin HCl 1 gm/ Sodium (Chloride) 250 mls @ 250 mls/hr IV ONETIME ONE Stop: 12/27/17 00:29 Last Admin: 12/27/17 00:14 Dose: 250 mls/hr Sodium Chloride (Normal Saline) 250 mls @ 500 mls/hr IV .BOLUS [facility] Stop: 12/27/17 18:00 Sodium Chloride (Normal Saline) 100 mls @ 60 mls/hr IV ASDIRECTED [facility] Stop: 12/27/17 16:00 Last Admin: 12/27/17 14:15 Dose: 60 mls/hr Piperacillin Sod/Tazobactam (Sod 4.5 gm/ Sodium Chloride) 100 mls @ 25 mls/hr IV Q8H [facility] Last Admin: 12/29/17 09:00 Dose: 25 mls/hr Piperacillin Sod/Tazobactam (Sod 4.5 gm/ Sodium Chloride) 100 mls @ 200 mls/hr IV ONETIME ONE Stop: 12/28/17 18:59 Last Admin: 12/28/17 18:56 Dose: 200 mls/hr Clindamycin Phosphate 900 mg/ (Sodium Chloride) 106 mls @ 100 mls/hr IV Q6H [facility] Stop: 12/30/17 12:31 Last Admin: 12/30/17 13:42 Dose: 100 mls/hr Meropenem 1 gm/ Sodium (Chloride) 100 mls @ 200 mls/hr IV Q8H [facility] Insulin Aspart (Novolog) 0 unit SUBCUT QIDACANDBED [facility]; Protocol Insulin Aspart (Novolog) 16 unit SUBCUT KAYLA [facility] Last Admin: 12/27/17 14:07 Dose: Not Given Insulin Aspart (Novolog) 28 unit SUBCUT PCDINNER [facility] Insulin Aspart (Novolog) 34 unit SUBCUT BRK [facility] Last Admin: 12/27/17 08:39 Dose: 34 units Insulin Detemir (Levemir) 44 unit SUBCUT BID [facility] Last Admin: 12/27/17 08:38 Dose: 44 units Iopamidol (Isovue-370 (76%)) 50 ml IVPUSH ONETIME ONE Stop: 12/27/17 13:48 Last Admin: 12/27/17 14:15 Dose: 50 ml Iopamidol (Isovue-370 (76%)) 100 ml IVPUSH ONETIME ONE Stop: 12/27/17 13:48 Last Admin: 12/27/17 14:15 Dose: 100 ml Losartan Potassium (Cozaar) 12.5 mg PO DAILY [facility] Last Admin: 12/28/17 10:58 Dose: Not Given Metoprolol Tartrate (Lopressor) 25 mg PO BID [facility] Last Admin: 12/28/17 10:58 Dose: Not Given Morphine Sulfate (Morphine) 2 mg IVPUSH Q2H PRN PRN Reason: Pain (severe 7-10) Stop: 12/27/17 20:08 Potassium Chloride (Klor-Con M20) 20 meq PO BIDMEALS [facility] Last Admin: 12/27/17 17:47 Dose: 20 meq Silver Sulfadiazine (Silvadene 1% Cream 50 Gm) 0 gm TOP BID [facility] Last Admin: 12/26/17 23:13 Dose: Not Given Sodium Chloride (Saline Flush) 10 ml FLUSH ONETIME ONE Stop: 12/27/17 13:48 Vancomycin HCl (Pharmacy To Dose - Vancomycin) 0 dose .XX ASDIRECTED PRN PRN Reason: RX TO DOSE VANCOMYCIN Vancomycin HCl (Vancocin) Confirm Administered Dose 2 gm .ROUTE .STK-MED ONE Stop: 12/26/17 22:06 Last Admin: 12/27/17 00:21 Dose: Not Given - Exam Quality Assessment: DVT Prophylaxis General: Alert, Oriented, Cooperative, No Acute Distress HEENT: Pupils Equal, Pupils Reactive, EOMI, Mucous Membr. Moist/[place] Neck: Supple, Trachea Midline, No JVD Lungs: Clear to Auscultation, Normal Respiratory Effort, Decreased Breath Sounds Cardiovascular: Regular Rate, Regular Rhythm GI/Abdominal Exam: Normal Bowel Sounds, Soft, Non-Tender, No Distention (Male) Exam: Deferred Back Exam: Normal Inspection, Full Range of Motion Extremities: Pedal Edema (1+), Limited Range of Motion, Redness. No: Normal Capillary Refill Peripheral Pulses: 0: Posterior Tibial (L), Posterior Tibial (R), Dorsalis Pedis (L), Dorsalis Pedis (R), 1+: Radial (L), Radial (R) Skin: Warm, Dry, Intact Wound/Incisions: Dressing Dry and Intact, No Drainage, Erythema Improving Neurological: No New Focal Deficit Psy/Mental Status: Alert, Normal Affect, Normal Mood - Problem List & Annotations (1) Cellulitis SNOMED Code(s): 247574788 Code(s): L03.90 - CELLULITIS, UNSPECIFIED Status: Acute Priority: High Current Visit: Yes Qualifiers: Site of cellulitis: extremity Site of cellulitis of extremity: lower extremity Laterality: unspecified laterality Qualified Code(s): L03.119 - Cellulitis of unspecified part of limb (2) Elevated lactic acid level SNOMED Code(s): 0203769 Code(s): R79.89 - OTHER SPECIFIED ABNORMAL FINDINGS OF BLOOD CHEMISTRY Status: Acute Priority: High Current Visit: Yes (3) Pedal edema SNOMED Code(s): 072961980 Code(s): R60.0 - LOCALIZED EDEMA Status: Acute Priority: High Current Visit: Yes (4) Venous stasis dermatitis of both lower extremities SNOMED Code(s): 42271159 Code(s): I87.2 - VENOUS INSUFFICIENCY (CHRONIC) (PERIPHERAL) Status: Acute Priority: High Current Visit: Yes (5) Diastolic heart failure SNOMED Code(s): 082257975 Code(s): I50.30 - UNSPECIFIED DIASTOLIC (CONGESTIVE) HEART FAILURE Status: Chronic Priority: Medium Current Visit: Yes Qualifiers: Heart failure chronicity: chronic Qualified Code(s): I50.32 - Chronic diastolic (congestive) heart failure (6) HTN (hypertension) SNOMED Code(s): 31537995 Code(s): I10 - ESSENTIAL (PRIMARY) HYPERTENSION Status: Chronic Priority : High Current Visit: Yes Qualifiers: Hypertension type: unspecified Qualified Code(s): I10 - Essential (primary ) hypertension (7) Morbid obesity with BMI of 40.0-44.9, adult SNOMED Code(s): 065483209 Code(s): E66.01 - MORBID (SEVERE) OBESITY DUE TO EXCESS CALORIES; Z68.41 - BODY MASS INDEX (BMI) 40.0-44.9, ADULT Status: Chronic Priority: High Current Visit: Yes (8) Non compliance w medication regimen SNOMED Code(s): 836703535 Code(s): Z91.14 - PATIENT'S OTHER NONCOMPLIANCE WITH MEDICATION REGIMEN Status: Chronic Priority: High Current Visit: Yes (9) Sleep apnea SNOMED Code(s): 06921334 Code(s): G47.30 - SLEEP APNEA, UNSPECIFIED Status: Chronic Priority: Low Current Visit: Yes Qualifiers: Sleep apnea type: unspecified type Qualified Code(s): G47.30 - Sleep apnea , unspecified (10) CAD (coronary artery disease) SNOMED Code(s): 40712685 Code(s): I25.10 - ATHSCL HEART DISEASE OF [place] CORONARY ARTERY W/O ANG PCTRS Status: Chronic Priority: Medium Current Visit: No Qualifiers: Coronary Disease-Associated Artery/Lesion type: unspecified vessel or lesion type [place] vs. transplanted heart: [place] heart Associated angina: angina presence unspecified Qualified Code(s): I25.10 - Atherosclerotic heart disease of [place] coronary artery without angina pectoris (11) HLD (hyperlipidemia) SNOMED Code(s): 38230555 Code(s): E78.5 - HYPERLIPIDEMIA, UNSPECIFIED Status: Chronic Priority: Low Current Visit: No Qualifiers: Hyperlipidemia type: unspecified Qualified Code(s): E78.5 - Hyperlipidemia , unspecified (12) Uncontrolled type 2 diabetes mellitus with insulin therapy SNOMED Code(s): 489320650 Code(s): E11.65 - TYPE 2 DIABETES MELLITUS WITH HYPERGLYCEMIA; Z79.4 - FPC (CURRENT) USE OF INSULIN Status: Chronic Priority: High Current Visit : No - Problem List Review Problem List Initiated/Reviewed/Updated: Yes - My Orders Last 24 Hours: My Active Orders 12/31/17 09:00 Furosemide [Lasix] 40 mg IVPUSH DAILY - Plan Plan:: I/P: Acute: Cellulitis of bilateral lower extremities -Risk factors: CHF with medical non-compliance, Uncontrolled DM2, Obesity, Venous insufficiency -No h/o MRSA infection--> MRSA negative -Afebrile in ED; Lactic Acid 2.4; WBC 10.93-->10.57-->8.55-->7.74-->7.76--> 7.42 -CRP 2.7-->3.5-->8.1-->5.1-->3.3-->1.6 -Rocephin 2g given in ED--> switch to IV meropenem and clindamycin -> switch to PO clindamycin and continue IV Meropenem -IV Vanco 2g --> discontinue -Sepsis Protocol -Repeat Lactic acid--> 2.2 -Blood Cultures ordered in ED--> No growth after 3 days; Repeat BC -> no growth after 1 day -Wound culture ordered--> contact precautions for now; SA and pseudomonas--> adjust ATB based on C and S -Wound Care, [place] -CT angiography Ab/Pelvis with runoff to LE--> No acute findings. -Mild atherosclerotic changes in the abdominal aorta, pelvic arteries, both lower leg arteries with 3 vessel runoff bilaterally. -Recommend Compression stockings once infection clears and ambulation -PICC line placement (12/30/17) -Showers/Bathing QAD - Has actually been showering daily Venous Insufficiency -Acute on Chronic -Venous Stasis Dermatitis present chronically -US Duplex Bilateral Lower Extremity--> No acute abnormal findings. limited evaluation of calf veins due to bilateral edema. 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 LVEF by visual estimation is 55% 2. Mild concentric LV hypertrophy 3. Grade 2 LV diastolic filling 4. Moderate aortic valve sclerosis without stenosis 5. nodular thickening of all three aortic valve cusps - unchanged from 6. mild MVR 7. mild TVR 8. Right ventricular systolic pressure mildly elevated at 37.2mmHg. -Continue at home Lasix -Start Lasix IV 4mg/hr in AM--> stop; Start 40mg IVP lasix daily today -CHF education -2L Fluid Restriction diet, 2g Sodium diet, Heart Healthy Diet -F/U with [facility] Essential Hypertension, improved -Acute on Chronic -140/62 in ED -Continue at home medications -Hydralazine PRN; Hold ARB when diuresing. 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 He remains stable and continues to improve clinically Other orders as indicated above Continue at home medications CM/SW for discharge planning--> Home with Home Health vs. SNF (agreeable to [facility] if openings) ADA/2g Sodium/Fluid Restriction 2L/Heart Healthy Diet Routine AM labs PT/OT DVT Prophylaxis: Lovenox SubQ GI Prophylaxis: Pepcid Code Status:DNR/DNI; PCP: Dr. Abbie Mascorro LOS >96hrs due to continued need for IV antibiotics, PICC placement. Pending SNF placement - [facility] reviewing chart.
[2017-12-31] MEDS: Insulin Aspart 100 Units/ML 3 ML Pen SUBCUT SCH ×4 (06:42→21:07)
[2017-12-31] MEDS: Furosemide 40 MG/4 ML VIAL IVPUSH SCH (09:26)
[2017-12-31] MEDS: Saccharomyces Boulardii (Probiotic) 250 MG Cap PO SCH ×2 (09:26→20:51)
[2017-12-31] MEDS: Tamsulosin 0.4 MG Cap.ER PO SCH (09:27)
[2017-12-31] MEDS: Simvastatin 40 MG Tab PO SCH (09:27)
[2017-12-31] MEDS: Clopidogrel 75 MG Tab PO SCH (09:27)
[2017-12-31] MEDS: Allopurinol 300 MG Tab PO SCH (09:27)
[2017-12-31] MEDS: Famotidine 20 MG Tab PO SCH (09:27)
[2017-12-31] MEDS: Isosorbide Mononitrate 30 MG Tab.ER PO SCH (09:28)
[2017-12-31] MEDS: Cholecalciferol (Vitamin D3) 1,000 Unit Tab PO SCH (09:28)
[2017-12-31] MEDS: Enoxaparin 30 MG/0.3 ML Syringe SUBCUT SCH (09:29)
[2017-12-31] MEDS: Metoprolol Tartrate 25 MG Tab PO SCH ×2 (09:29→20:54)
[2017-12-31] MEDS: Insulin Detemir 100 Units/ML 3 ML Pen SUBCUT SCH ×2 (09:30→20:56)
[2017-12-31] MEDS: Potassium Chloride 20 MEQ Tab.ER PO SCH (17:41)
[2018-01-01] MEDS: Clindamycin HCl 150 MG Cap PO SCH ×2 (00:33→05:32)
[2018-01-01] MEDS: Meropenem 500 MG in Sodium Chloride 0.9% 100 ML IV SCH (05:28)
--- NOTE | 2018-01-01 06:48 | PCM.DCSUM1 ---
<Mac Lyon - Last Filed: 01/01/18 16:46> Discharge Summary - Hospital Course HPI Initial Comments: This is an 82 yo male with past medical h/o type 2 diabetes, hypertension, hypercholesterolemia, diastolic dysfunction, CVA, gout, CAD, obstructive sleep apnea who comes in for bilateral cellulitis of the lower extremities. Pain is mild. He reports no fever, chills, headache, nausea, vomiting, diarrhea, chest pain, shortness of breath, or GI/ complaints. His symptoms slightly improved after receiving 2g IV Rocephin in the ED. His initial workup in the ED showed a CBC remarkable for WBC 10.93, RBC 3.92, Hgb 11.5, HCT 35, RDW 50.8, MPV 9.3, Neut 75.2%, Lymph 13%. His coagulation study shows PT 11.2, INR 1.03. His chemistry is remarkable for BUN 46, CR 1.6, Lactic acid 2.4, Mag 2.5, CRP 2.7, BNP 2039, Albumin 3.2. Troponin was negative. EKG showed A-fib/A-Flutter with variable conduction, no acute ST changes. Chest X- ray shows mild increased pulmonary congestion with cardiomegaly. He is subsequently admitted to the medical floor. He is a DNR/DNI. His PCP is Dr. Abbie Mascorro at [facility]. Diagnosis: Stroke: No - Discharge Data Discharge Date: 01/01/18 (Admit date: 12/26/17) Discharge Disposition: DC/Tfer to [facility] 03 Condition: Good - Discharge Diagnosis/Problem(s) (1) Cellulitis SNOMED Code(s): 199154706 ICD Code: L03.90 - CELLULITIS, UNSPECIFIED Status: Acute Priority: High Qualifiers: Site of cellulitis: extremity Site of cellulitis of extremity: lower extremity Laterality: unspecified laterality Qualified Code(s): L03.119 - Cellulitis of unspecified part of limb (2) Elevated lactic acid level SNOMED Code(s): 9867101 ICD Code: R79.89 - OTHER SPECIFIED ABNORMAL FINDINGS OF BLOOD CHEMISTRY Status: Acute Priority: High (3) Pedal edema SNOMED Code(s): 421747231 ICD Code: R60.0 - LOCALIZED EDEMA Status: Acute Priority: High (4) Venous stasis dermatitis of both lower extremities SNOMED Code(s): 55081766 ICD Code: I87.2 - VENOUS INSUFFICIENCY (CHRONIC) (PERIPHERAL) Status: Acute Priority: High (5) Diastolic heart failure SNOMED Code(s): 486169834 ICD Code: I50.30 - UNSPECIFIED DIASTOLIC (CONGESTIVE) HEART FAILURE Status : Chronic Priority: Medium Qualifiers: Heart failure chronicity: chronic Qualified Code(s): I50.32 - Chronic diastolic (congestive) heart failure (6) HTN (hypertension) SNOMED Code(s): 21788481 ICD Code: I10 - ESSENTIAL (PRIMARY) HYPERTENSION Status: Chronic Priority : High Qualifiers: Hypertension type: unspecified Qualified Code(s): I10 - Essential (primary ) hypertension (7) Morbid obesity with BMI of 40.0-44.9, adult SNOMED Code(s): 126441152 ICD Code: E66.01 - MORBID (SEVERE) OBESITY DUE TO EXCESS CALORIES; Z68.41 - BODY MASS INDEX (BMI) 40.0-44.9, ADULT Status: Chronic Priority: High (8) Non compliance w medication regimen SNOMED Code(s): 488419908 ICD Code: Z91.14 - PATIENT'S OTHER NONCOMPLIANCE WITH MEDICATION REGIMEN Status: Chronic Priority: High (9) Sleep apnea SNOMED Code(s): 27871831 ICD Code: G47.30 - SLEEP APNEA, UNSPECIFIED Status: Chronic Priority: Low Qualifiers: Sleep apnea type: unspecified type Qualified Code(s): G47.30 - Sleep apnea , unspecified (10) CAD (coronary artery disease) SNOMED Code(s): 42559632 ICD Code: I25.10 - ATHSCL HEART DISEASE OF [place] CORONARY ARTERY W/O ANG PCTRS Status: Chronic Priority: Medium Qualifiers: Coronary Disease-Associated Artery/Lesion type: unspecified vessel or lesion type [place] vs. transplanted heart: [place] heart Associated angina: angina presence unspecified Qualified Code(s): I25.10 - Atherosclerotic heart disease of [place] coronary artery without angina pectoris (11) HLD (hyperlipidemia) SNOMED Code(s): 31492467 ICD Code: E78.5 - HYPERLIPIDEMIA, UNSPECIFIED Status: Chronic Priority: Low Qualifiers: Hyperlipidemia type: unspecified Qualified Code(s): E78.5 - Hyperlipidemia , unspecified (12) Uncontrolled type 2 diabetes mellitus with insulin therapy SNOMED Code(s): 586685047 ICD Code: E11.65 - TYPE 2 DIABETES MELLITUS WITH HYPERGLYCEMIA; Z79.4 - INBOUND SALES ADVISOR (CURRENT) USE OF INSULIN Status: Chronic Priority: High - Patient Summary/Data Consults: Consultations 12/26/17 20:05 Consult to Case Management [CONS] Routine Consult to Diabetic Nurse Specialist [CONS] Routine Consult to Locomotive Mechanic [CONS] Routine Consult to Payroll And Benefits Coordinator [CONS] Routine Consult to Spiritual Care [CONS] Routine OT Evaluation and Treatment [CONS] Routine PT Evaluation and Treatment [CONS] Routine Respiratory Care Assess and Treatment [CONS] Routine Labs Pending at D/C: None Recommended Follow-up Testing/Procedures: Follow-up with PCP within 7-10 days of discharge. Follow-up with primary care provider at completion of treatment for PICC removal Hospital Course: I/P: Acute: Cellulitis of bilateral lower extremities -Risk factors: CHF with medical non-compliance, Uncontrolled DM2, Obesity, Venous insufficiency -No h/o MRSA infection--> MRSA negative -Afebrile in ED; Lactic Acid 2.4; WBC 10.93-->10.57-->8.55-->7.74-->7.76--> 7.42 -CRP 2.7-->3.5-->8.1-->5.1-->3.3-->1.6 -Rocephin 2g given in ED--> switch to IV meropenem and clindamycin -> switch to PO clindamycin and continue IV Meropenem -IV Vanco 2g --> discontinue -Sepsis Protocol -Repeat Lactic acid--> 2.2 -Blood Cultures ordered in ED--> No growth after 3 days; Repeat BC -> no growth after 1 day -Wound culture ordered--> contact precautions for now; SA and pseudomonas--> adjust ATB based on C and S -Wound Care, [place] -CT angiography Ab/Pelvis with runoff to LE--> No acute findings. -Mild atherosclerotic changes in the abdominal aorta, pelvic arteries, both lower leg arteries with 3 vessel runoff bilaterally. -Recommend Compression stockings once infection clears and ambulation -PICC line placement (12/30/17) -Showers/Bathing QAD - Has actually been showering daily Venous Insufficiency -Acute on Chronic -Venous Stasis Dermatitis present chronically -US Duplex Bilateral Lower Extremity--> No acute abnormal findings. limited evaluation of calf veins due to bilateral edema. -Ambulate Uncontrolled DM2 with insulin use -Acute on Chronic -Follows really no diet plan at home -Last hemoglobin A1c 8.0 -At home Insulin Detemir decreased from 44 to 22 BID d/t controlled diet here -Insulin sliding scale PRN medium protocol -Blood Glucose Checks QIDACBED -ADA diet -Dietary Consult -Diabetic Education Peripheral Neuropathy -Most likely 2/2 above -Diabetic Education -Follow up with PCP Diastolic dysfunction -Hasn't seen logistics planner in years; doesn't know when last ECHO was -ECHO on 12/27/17 1. LVEF by visual estimation is 55% 2. Mild concentric LV hypertrophy 3. Grade 2 LV diastolic filling 4. Moderate aortic valve sclerosis without stenosis 5. nodular thickening of all three aortic valve cusps - unchanged from 6. mild MVR 7. mild TVR 8. Right ventricular systolic pressure mildly elevated at 37.2mmHg. -Continue at home Lasix -Start Lasix IV 4mg/hr in AM--> stop; Start 40mg IVP lasix daily today -CHF education -2L Fluid Restriction diet, 2g Sodium diet, Heart Healthy Diet -F/U with Surface Mount Technology Operator Essential Hypertension, improved -Acute on Chronic -140/62 in ED -Continue at home medications -Hydralazine PRN; Hold ARB when diuresing. -Monitor Atrial Fibrillation/Flutter -Asymptomatic -EKG in ED --> A-fib/A-Flutter w/ variable conduction -Continue at home Metoprolol, Plavix -Monitor on Telemetry Medical non-compliance -States he "forgets" or "falls asleep" before he can take his medications -Hasn't followed up with Surface Mount Technology Operator in years for CHF -Education on importance of sticking to medication regimen -F/U with PCP Chronic: Hypercholesterolemia--> Check lipids: HDL low at 37, all other values normal CVA Lesion of the bladder Gout CAD w/ CABG--> On Statin Obstructive sleep apnea--> CPAP ordered Obesity CKD III Plan: Med-Surg on telemetry with Contact Precautions PICC line placed 12/30/17. He remains stable and continues to improve clinically Other orders as indicated above Continue at home medications CM/SW for discharge planning--> Home with Home Health vs. SNF (agreeable to [facility] if openings) ADA/2g Sodium/Fluid Restriction 2L/Heart Healthy Diet Routine AM labs PT/OT DVT Prophylaxis: Lovenox SubQ GI Prophylaxis: Pepcid Code Status:DNR/DNI; PCP: Dr. Abbie Mascorro LOS >96hrs due to continued need for IV antibiotics, PICC placement. Pending SNF placement - [facility] reviewing chart. Overall Inderjit did very while while here. His legs continued to improve and his tolerance with therapies improved as well. His hygiene improved and he was requesting showers daily. This was encouraged prior to discharge as he has reportedly went some time without bathing and this likely contributed to his cellulitis. He was seen by our diatician and outreach educator. His long and short acting insulins were trimmed as we addressed his diet. He reports very poor diet at home. He was given lasix by IV drip for 24 hours and diuresed very well. Echo was obtained as above. His medications were adjusted. CTA of his abdomen and pelvis with runoff as well as venous duplex ultrasound bilaterally were both utilized to examine his arterial and venous circulation in his legs bilaterally. Results are listed above. A PICC line was placed as he was a very difficult IV stick and required IV medications. His CRP and WBC continued to trend downward. He was discharged on a 7 day cours of clindamycin QID PO as well as 7 days of IV Meropenem Q8HR. His levemir was dropped to 22units BID and he was placed on medium sliding scale novolog. His lasix was cut to 40mg daily and his metolazone was stopped. He was also started on a probiotic. He was instructed to follow-up with his PCP within 7-10 days of discharge and after completing antibiotic treatment for removal of his PICC line, sooner if needed. He was instructed to practice good hygiene. He should weight himself daily and take his blood sugars before every meal and at bedtime, recording these and bringing them with him to his medical appointments. He was also instructed to take his blood pressures TID and record these, bringing them with. Parameters were placed on his BP medications prior to discharge to avoid hypertension as well. He was discharged to [facility] for a rehab stay. It is recommended he have a home safety evaluation after discharge from this SNF. - Patient Instructions Diet: Heart Healthy Diet, Low Sodium Fluid Restriction: 2000 mL Activity: As Tolerated Driving: Do Not Drive Showering/Bathing: May Shower Notify Provider of: Fever, Increased Pain, Swelling and Redness, Drainage, Nausea and/or Vomiting - Discharge Plan Prescriptions/Med Rec: Clindamycin HCl [Cleocin] 300 mg PO Q6H 7 Days #28 cap Furosemide [Lasix] 40 mg PO DAILY #1 tablet Insulin Aspart [Novolog] See Protocol SQ QIDACANDBED #1 ml Insulin Detemir [Levemir] 22 unit SUBCUT BID #1 pen Meropenem [Merrem] 500 mg IV Q8H 7 Days #21 sdv Saccharomyces Boulardii [Florastor] 250 mg PO BID #30 cap Home Medications: Home Meds Allopurinol [Zyloprim] 300 mg PO DAILY 10/18/14 [History] Clopidogrel [Plavix] 75 mg PO DAILY 10/18/14 [History] Naproxen Sodium [Aleve] 220 mg PO DAILY PRN 10/18/14 [History] Potassium Chloride [Klor-Con] 20 meq PO BID 10/18/14 [History] Tamsulosin HCl [Flomax] 0.4 mg PO DAILY 10/18/14 [History] Nitroglycerin [Nitrostat] 0.4 mg SL Q5M PRN 11/02/14 [History] Sennosides/Docusate Sodium [Senna-Docusate Sodium Tablet] 2 tab PO BEDTIME 11/02 [History] Cholecalciferol (Vitamin D3) [Vitamin D3] 1,000 unit PO DAILY 06/27/17 [History] Isosorbide Mononitrate [Imdur] 30 mg PO DAILY 06/27/17 [History] Simvastatin [Zocor] 40 mg PO DAILY 06/27/17 [History] Spironolactone [Aldactone] 25 mg PO QAM 06/27/17 [History] Polyethylene Glycol 3350 [Miralax] 17 gm PO Q72H 12/26/17 [History] Silver Sulfadiazine [Silvadene 1% Cream 20 GM] 1 applic TOP BID PRN 12/26/17 [ History] Clindamycin HCl [Cleocin] 300 mg PO Q6H 7 Days #28 cap 01/01/18 [Rx] Furosemide [Lasix] 40 mg PO DAILY #1 tablet 01/01/18 [Rx] Insulin Aspart [Novolog] See Protocol SQ QIDACANDBED #1 ml 01/01/18 [Rx] Insulin Detemir [Levemir] 22 unit SUBCUT BID #1 pen 01/01/18 [Rx] Losartan [Cozaar] 12.5 mg PO DAILY #0 01/01/18 [Rx] Meropenem [Merrem] 500 mg IV Q8H 7 Days #21 sdv 01/01/18 [Rx] Metoprolol Tartrate [Lopressor] 25 mg PO BID #0 01/01/18 [Rx] Saccharomyces Boulardii [Florastor] 250 mg PO BID #30 cap 01/01/18 [Rx] Patient Handouts: Heart-Healthy Eating Plan, Gtws-va-Xtoy, Fluid Restriction, Cellulitis, Adult, Gsck-uc-Nste, Low-Sodium Eating Plan, Edema, Nmmw-ld-Petx, Obesity, Adult, Cqkb-gf-Sooq Forms: ED Department Discharge Referrals: Abbie Mascorro MD [Primary Care Provider] - - Discharge Summary/Plan Comment DC Time >30 min.: Yes (45 mins ) - General Info Date of Service: 01/01/18 Admission Dx/Problem (Free Text: Admission Diagnosis/Problem Admission Diagnosis/Problem Cellulitis Subjective Update: In to see Inderjit. He is resting in bed. He has been doing great with therapies. He has no concerns. Nursing has no concerns. He will be discharged today to [facility] for rehab stay. Functional Status: Reports: Pain Controlled, Tolerating Diet, Ambulating, Urinating. Denies: New Symptoms - Review of Systems General: Reports: Weakness (improving ). Denies: Fever, Fatigue, Malaise HEENT: Reports: No Symptoms. Denies: Eye Pain, Sinus Congestion, Sore Throat Pulmonary: Reports: No Symptoms. Denies: Shortness of Breath, Cough, Sputum, Wheezing Cardiovascular: Reports: No Symptoms. Denies: Chest Pain, Palpitations, Dyspnea on Exertion Gastrointestinal: Reports: No Symptoms. Denies: Abdominal Pain, Constipation, Diarrhea, Nausea, Vomiting Genitourinary: Reports: No Symptoms. Denies: Dysuria, Frequency, Burning, Pain Musculoskeletal: Reports: No Symptoms Skin: Reports: No Symptoms Neurological: Reports: No Symptoms. Denies: Confusion, Numbness, Tingling, Trouble Speaking, Difficulty Walking, Gait Disturbance Psychiatric: Reports: No Symptoms - Patient Data Vitals - Most Recent: Last Vital Signs Temp 98.8 F 01/01/18 04:18 Pulse 62 01/01/18 04:18 Resp 16 01/01/18 04:18 BP 118/56 L 01/01/18 04:18 Pulse Ox 97 01/01/18 04:18 Weight - Most Recent: 115.984 kg I&O - Last 24 hours: Intake & Output 12/31/17 12/31/17 01/01/18 14:59 22:59 06:59 Intake Total 360 600 400 Output Total 2100 Balance 360 -1500 400 Lab Results - Last 24 hrs: Laboratory Results - last 24 hr 12/31/17 12/31/17 12/31/17 Range/Units 06:15 06:15 11:51 WBC 7.42 (4.23-9.07) K/mm3 RBC 3.73 L (4.63-6.08) M/mm3 Hgb 11.0 L (13.7-17.5) gm/L Hct 33.4 L (40.1-51.0) % MCV 89.5 (79.0-92.2) fl MCH 29.5 (25.7-32.2) pg MCHC 32.9 (32.2-35.5) g/dl RDW Std Deviation 50.3 H (35.1-43.9) fL Plt Count 170 (163-337) K/mm3 MPV 9.9 (9.4-12.3) fl Neut % (Auto) 56.6 (34.0-67.9) % Lymph % (Auto) 27.2 (21.8-53.1) % [place] % (Auto) 10.5 (5.3-12.2) % Eos % (Auto) 4.7 (0.8-7.0) Baso % (Auto) 0.7 (0.1-1.2) % Neut # (Auto) 4.20 (1.78-5.38) K/mm3 Lymph # (Auto) 2.02 (1.32-3.57) K/mm3 [place] # (Auto) 0.78 (0.30-0.82) K/mm3 Eos # (Auto) 0.35 (0.04-0.54) K/mm3 Baso # (Auto) 0.05 (0.01-0.08) K/mm3 Sodium 140 (136-145) mEq/L Potassium 4.2 (3.5-5.1) mEq/L Chloride 106 (98-107) mEq/L Carbon Dioxide 25 (21-32) mEq/L Anion Gap 13.2 (5-15) BUN 26 H (7-18) mg/dL Creatinine 1.4 H (0.7-1.3) mg/dL Est Cr Clr Drug Dosing 36.72 mL/min Estimated GFR (MDRD) 48 (>60) mL/min BUN/Creatinine Ratio 18.6 H (14-18) Glucose 120 H (83-115) mg/dL POC Glucose 294 H (83-110) mg/dL Calcium 8.9 (8.5-10.1) mg/dL Magnesium 2.1 (1.8-2.4) mg/dl C-Reactive Protein 1.6 H* (<1.0) mg/dL 12/31/17 12/31/17 01/01/18 Range/Units 16:17 20:45 06:43 WBC (4.23-9.07) K/mm3 RBC (4.63-6.08) M/mm3 Hgb (13.7-17.5) gm/L Hct (40.1-51.0) % MCV (79.0-92.2) fl MCH (25.7-32.2) pg MCHC (32.2-35.5) g/dl RDW Std Deviation (35.1-43.9) fL Plt Count (163-337) K/mm3 MPV (9.4-12.3) fl Neut % (Auto) (34.0-67.9) % Lymph % (Auto) (21.8-53.1) % [place] % (Auto) (5.3-12.2) % Eos % (Auto) (0.8-7.0) Baso % (Auto) (0.1-1.2) % Neut # (Auto) (1.78-5.38) K/mm3 Lymph # (Auto) (1.32-3.57) K/mm3 [place] # (Auto) (0.30-0.82) K/mm3 Eos # (Auto) (0.04-0.54) K/mm3 Baso # (Auto) (0.01-0.08) K/mm3 Sodium (136-145) mEq/L Potassium (3.5-5.1) mEq/L Chloride (98-107) mEq/L Carbon Dioxide (21-32) mEq/L Anion Gap (5-15) BUN (7-18) mg/dL Creatinine (0.7-1.3) mg/dL Est Cr Clr Drug Dosing mL/min Estimated GFR (MDRD) (>60) mL/min BUN/Creatinine Ratio (14-18) Glucose (83-115) mg/dL POC Glucose 180 H 249 H 177 H (83-110) mg/dL Calcium (8.5-10.1) mg/dL Magnesium (1.8-2.4) mg/dl C-Reactive Protein (<1.0) mg/dL HEATH Results - Last 24 hrs: Microbiology 12/26/17 15:48 Aerobic Blood Culture - Preliminary Blood - Venous NO GROWTH AFTER 5 DAYS Anaerobic Blood Culture - Final 12/26/17 16:50 Aerobic Blood Culture - Preliminary Blood - Venous - Lab Draw NO GROWTH AFTER 5 DAYS Anaerobic Blood Culture - Preliminary NO GROWTH AFTER 5 DAYS 12/28/17 14:56 Aerobic Blood Culture - Preliminary Blood - Venous - Lab Draw NO GROWTH AFTER 3 DAYS Anaerobic Blood Culture - Preliminary NO GROWTH AFTER 3 DAYS 12/28/17 14:50 Aerobic Blood Culture - Preliminary Blood - Venous NO GROWTH AFTER 3 DAYS Anaerobic Blood Culture - Final Med Orders - Current: Current Medications Acetaminophen (Tylenol) 650 mg PO Q4H PRN PRN Reason: Pain (Mild 1-3)/fever Hydrocodone Bitart/Acetaminophen ([place] 325-5 Mg) 1 tab PO Q6H PRN PRN Reason: Pain (moderate 4-6) Allopurinol (Zyloprim) 300 mg PO DAILY [facility] Last Admin: 12/31/17 09:27 Dose: 300 mg Bisacodyl (Dulcolax) 5 mg PO DAILY PRN PRN Reason: Constipation Cholecalciferol (Vitamin D3) 1,000 units PO DAILY [facility] Last Admin: 12/31/17 09:28 Dose: 1,000 units Clindamycin HCl (Cleocin) 300 mg PO Q6H [facility] Last Admin: 01/01/18 05:32 Dose: 300 mg Clopidogrel Bisulfate (Plavix) 75 mg PO DAILY [facility] Last Admin: 12/31/17 09:27 Dose: 75 mg Dextrose/Water (Dextrose 50% In Water) 50 ml IVPUSH ASDIRECTED PRN PRN Reason: Hypoglycemia Docusate Sodium (Colace) 100 mg PO BID PRN PRN Reason: Constipation Enoxaparin Sodium (Lovenox) 30 mg SUBCUT DAILY [facility] Last Admin: 12/31/17 09:29 Dose: 30 mg Famotidine (Pepcid) 20 mg PO DAILY [facility] Last Admin: 12/31/17 09:27 Dose: 20 mg Furosemide (Lasix) 40 mg IVPUSH DAILY [facility] Last Admin: 12/31/17 09:26 Dose: 40 mg Hydralazine HCl (Apresoline) 20 mg IVPUSH Q6H PRN PRN Reason: Hypertension Meropenem 500 mg/ Sodium (Chloride) 100 mls @ 200 mls/hr IV Q8H [facility] Last Admin: 01/01/18 05:28 Dose: 200 mls/hr Insulin Aspart (Novolog) 0 unit SUBCUT QIDACANDBED [facility]; Protocol Last Admin: 12/31/17 21:07 Dose: 4 units Insulin Detemir (Levemir) 22 unit SUBCUT BID [facility] Last Admin: 12/31/17 20:56 Dose: 22 unit Isosorbide Mononitrate (Imdur) 30 mg PO DAILY [facility] Last Admin: 12/31/17 09:28 Dose: 30 mg Losartan Potassium (Cozaar) 12.5 mg PO BEDTIME [facility] Last Admin: 12/31/17 20:55 Dose: Not Given Magnesium Hydroxide (Milk Of Magnesia) 30 ml PO Q12H PRN PRN Reason: Constipation Last Admin: 12/28/17 09:18 Dose: 30 ml Metolazone (Zaroxolyn) 2.5 mg PO MoWeFr@0700 [facility] Last Admin: 12/27/17 07:40 Dose: 2.5 mg Metoprolol Tartrate (Lopressor) 25 mg PO Q12HR [facility] Last Admin: 12/31/17 20:54 Dose: Not Given Mineral Oil/White Petrolatum (Hydrocerin Crm) 0 gm TOP ASDIRECTED PRN PRN Reason: DRY SKIN Last Admin: 12/29/17 10:48 Dose: 1 applic Ondansetron HCl (Zofran Odt) 4 mg PO Q4H PRN PRN Reason: nausea, able to take PO Ondansetron HCl (Zofran) 4 mg IV Q4H PRN PRN Reason: Nausea/Vomiting Polyethylene Glycol (Miralax) 17 gm PO DAILY PRN PRN Reason: Constipation Potassium Chloride (Klor-Con M20) 20 meq PO BID@0800,1700 [facility] Last Admin: 12/31/17 17:41 Dose: 20 meq Saccharomyces Boulardii (Florastor) 250 mg PO BID [facility] Last Admin: 12/31/17 20:51 Dose: 250 mg Senna/Docusate Sodium (Senna Plus) 1 tab PO BID PRN PRN Reason: Constipation Silver Sulfadiazine (Silvadene 1% Cream 50 Gm) 0 gm TOP BID PRN PRN Reason: varela Simvastatin (Zocor) 40 mg PO DAILY [facility] Last Admin: 12/31/17 09:27 Dose: 40 mg Sodium Chloride (Saline Flush) 10 ml FLUSH ASDIRECTED PRN PRN Reason: Keep Vein Open Last Admin: 12/27/17 14:15 Dose: 10 ml Spironolactone (Aldactone) 25 mg PO QAM [facility] Last Admin: 12/29/17 08:53 Dose: 25 mg Tamsulosin HCl (Flomax) 0.4 mg PO DAILY [facility] Last Admin: 12/31/17 09:27 Dose: 0.4 mg Temazepam (Restoril) 7.5 mg PO BEDTIME PRN PRN Reason: Sleep Discontinued Medications Hydrocodone Bitart/Acetaminophen ([place] 325-5 Mg) 1 tab PO Q4H PRN PRN Reason: Pain (moderate 4-6) Ceftriaxone Sodium 2 gm/ (Lidocaine HCl 4.2 ml) 0 gm IM ONETIME ONE Stop: 12/26/17 17:13 Last Admin: 12/26/17 17:27 Dose: 2 inj Enoxaparin Sodium (Lovenox) 40 mg SUBCUT DAILY [facility] Famotidine (Pepcid) 20 mg PO BID PHILIP Furosemide (Lasix) 80 mg PO BIDDIURETIC [facility] Last Admin: 12/27/17 08:02 Dose: Not Given Furosemide (Lasix) 40 mg IVPUSH ONETIME ONE Stop: 12/26/17 23:01 Last Admin: 12/26/17 23:38 Dose: 40 mg Hydralazine HCl (Apresoline) 10 mg IVPUSH Q4H PRN PRN Reason: Hypertension Ceftriaxone Sodium 2 gm/ (Sodium Chloride) 100 mls @ 200 mls/hr IV ONETIME ONE Stop: 12/26/17 16:35 Last Admin: 12/26/17 18:11 Dose: Not Given Lidocaine HCl (Xylocaine-Mpf 1%) Confirm Administered Dose 8 mls @ as directed .ROUTE .STK-MED ONE Stop: 12/26/17 17:38 Vancomycin HCl 2 gm/ Sodium (Chloride) 250 mls @ 125 mls/hr IV ONETIME ONE Stop: 12/26/17 22:59 Last Admin: 12/26/17 23:14 Dose: Not Given Furosemide 100 mg/ Sodium (Chloride) 100 mls @ 4 mls/hr IV ASDIRECTED [facility] Last Admin: 12/28/17 10:18 Dose: 4 mg/hr, 4 mls/hr Vancomycin HCl 1 gm/Vancomycin HCl 250 mg/ Sodium Chloride 250 mls @ 250 mls/ hr IV Q24H [facility] Last Admin: 12/28/17 21:49 Dose: 250 mls/hr Vancomycin HCl 1 gm/ Sodium (Chloride) 250 mls @ 250 mls/hr IV ONETIME ONE Stop: 12/26/17 23:29 Last Admin: 12/26/17 22:41 Dose: 250 mls/hr Vancomycin HCl 1 gm/ Sodium (Chloride) 250 mls @ 250 mls/hr IV ONETIME ONE Stop: 12/27/17 00:29 Last Admin: 12/27/17 00:14 Dose: 250 mls/hr Sodium Chloride (Normal Saline) 250 mls @ 500 mls/hr IV .BOLUS [facility] Stop: 12/27/17 18:00 Sodium Chloride (Normal Saline) 100 mls @ 60 mls/hr IV ASDIRECTED [facility] Stop: 12/27/17 16:00 Last Admin: 12/27/17 14:15 Dose: 60 mls/hr Piperacillin Sod/Tazobactam (Sod 4.5 gm/ Sodium Chloride) 100 mls @ 25 mls/hr IV Q8H [facility] Last Admin: 12/29/17 09:00 Dose: 25 mls/hr Piperacillin Sod/Tazobactam (Sod 4.5 gm/ Sodium Chloride) 100 mls @ 200 mls/hr IV ONETIME ONE Stop: 12/28/17 18:59 Last Admin: 12/28/17 18:56 Dose: 200 mls/hr Clindamycin Phosphate 900 mg/ (Sodium Chloride) 106 mls @ 100 mls/hr IV Q6H [facility] Stop: 12/30/17 12:31 Last Admin: 12/30/17 13:42 Dose: 100 mls/hr Meropenem 1 gm/ Sodium (Chloride) 100 mls @ 200 mls/hr IV Q8H [facility] Insulin Aspart (Novolog) 0 unit SUBCUT QIDACANDBED [facility]; Protocol Insulin Aspart (Novolog) 16 unit SUBCUT KAYLA [facility] Last Admin: 12/27/17 14:07 Dose: Not Given Insulin Aspart (Novolog) 28 unit SUBCUT PCDINNER [facility] Insulin Aspart (Novolog) 34 unit SUBCUT BRK [facility] Last Admin: 12/27/17 08:39 Dose: 34 units Insulin Detemir (Levemir) 44 unit SUBCUT BID [facility] Last Admin: 12/27/17 08:38 Dose: 44 units Iopamidol (Isovue-370 (76%)) 50 ml IVPUSH ONETIME ONE Stop: 12/27/17 13:48 Last Admin: 12/27/17 14:15 Dose: 50 ml Iopamidol (Isovue-370 (76%)) 100 ml IVPUSH ONETIME ONE Stop: 12/27/17 13:48 Last Admin: 12/27/17 14:15 Dose: 100 ml Losartan Potassium (Cozaar) 12.5 mg PO DAILY [facility] Last Admin: 12/28/17 10:58 Dose: Not Given Metoprolol Tartrate (Lopressor) 25 mg PO BID [facility] Last Admin: 12/28/17 10:58 Dose: Not Given Morphine Sulfate (Morphine) 2 mg IVPUSH Q2H PRN PRN Reason: Pain (severe 7-10) Stop: 12/27/17 20:08 Potassium Chloride (K[facility]-Con M20) [facility] Last Admin: 12/27/17 17:47 Dose: 20 meq Silver Sulfadiazine (Silvadene 1% Cream 50 Gm) 0 gm TOP BID [facility] Last Admin: 12/26/17 23:13 Dose: Not Given Sodium Chloride (Saline Flush) 10 ml FLUSH ONETIME ONE Stop: 12/27/17 13:48 Vancomycin HCl (Pharmacy To Dose - Vancomycin) 0 dose .XX ASDIRECTED PRN PRN Reason: RX TO DOSE VANCOMYCIN Vancomycin HCl (Vancocin) Confirm Administered Dose 2 gm .ROUTE .STK-MED ONE Stop: 12/26/17 22:06 Last Admin: 12/27/17 00:21 Dose: Not Given - Exam Quality Assessment: Reports: DVT Prophylaxis General: Reports: Alert, Oriented, Cooperative, No Acute Distress HEENT: Reports: Pupils Equal, Pupils Reactive, EOMI, Mucous Membr. Moist/[place] Neck: Reports: Supple, Trachea Midline, No JVD Lungs: Reports: Clear to Auscultation, Normal Respiratory Effort Cardiovascular: Reports: Regular Rate, Regular Rhythm GI/Abdominal Exam: Normal Bowel Sounds, Soft, Non-Tender (Male) Exam: Deferred Rectal (Males) Exam: Deferred Back Exam: Reports: Normal Inspection, Full Range of Motion Extremities: Non-Tender, No Pedal Edema, Normal Capillary Refill, Other (Sonido bandages applied to bilateral legs ) Skin: Reports: Warm, Dry, Intact Wound/Incisions: Reports: Dressing Dry and Intact, No Drainage, Erythema Improving Neurological: Reports: No New Focal Deficit Psy/Mental Status: Reports: Alert, Normal Affect, Normal Mood <DennisMyriam Fraire - Last Filed: 01/02/18 13:20> Discharge Summary - Hospital Course Free Text/Narrative:: PATIENT IS EXPECTED TO COMPLETE ANTIBIOTICS; PARTICIPATE PT/OT AND BE DISCHARGED HOME WITH HOME HEALTH. MEDICATIONS INCLUDING INSULIN AND LASIX WERE REDUCED WITH APPROPRIATE DIET AND INCREASED ACTIVITY LEVEL. - Patient Summary/Data Consults: Consultations 12/26/17 20:05 Consult to Case Management [CONS] Routine Consult to Diabetic Nurse Specialist [CONS] Routine Consult to Locomotive Mechanic [CONS] Routine Consult to Payroll And Benefits Coordinator [CONS] Routine Consult to Spiritual Care [CONS] Routine OT Evaluation and Treatment [CONS] Routine PT Evaluation and Treatment [CONS] Routine Respiratory Care Assess and Treatment [CONS] Routine - Patient Data Vitals - Most Recent: Last Vital Signs Temp 36.7 C 01/01/18 08:06 Pulse 64 01/01/18 08:51 Resp 14 01/01/18 08:06 BP 100/74 01/01/18 08:51 Pulse Ox 99 01/01/18 08:06 HEATH Results - Last 24 hrs: Microbiology 12/26/17 15:48 Aerobic Blood Culture - Preliminary Blood - Venous NO GROWTH AFTER 6 DAYS Anaerobic Blood Culture - Final 12/26/17 16:50 Aerobic Blood Culture - Preliminary Blood - Venous - Lab Draw NO GROWTH AFTER 6 DAYS Anaerobic Blood Culture - Preliminary NO GROWTH AFTER 6 DAYS 12/28/17 14:56 Aerobic Blood Culture - Preliminary Blood - Venous - Lab Draw NO GROWTH AFTER 4 DAYS Anaerobic Blood Culture - Preliminary NO GROWTH AFTER 4 DAYS 12/28/17 14:50 Aerobic Blood Culture - Preliminary Blood - Venous NO GROWTH AFTER 4 DAYS Anaerobic Blood Culture - Final Med Orders - Current: Current Medications Discontinued Medications Acetaminophen (Tylenol) 650 mg PO Q4H PRN PRN Reason: Pain (Mild 1-3)/fever Hydrocodone Bitart/Acetaminophen ([place] 325-5 Mg) 1 tab PO Q4H PRN PRN Reason: Pain (moderate 4-6) Hydrocodone Bitart/Acetaminophen ([place] 325-5 Mg) 1 tab PO Q6H PRN PRN Reason: Pain (moderate 4-6) Allopurinol (Zyloprim) 300 mg PO DAILY [facility] Last Admin: 01/01/18 08:48 Dose: 300 mg Bisacodyl (Dulcolax) 5 mg PO DAILY PRN PRN Reason: Constipation Cholecalciferol (Vitamin D3) 1,000 units PO DAILY [facility] Last Admin: 01/01/18 08:48 Dose: 1,000 units Clindamycin HCl (Cleocin) 300 mg PO Q6H [facility] Last Admin: 01/01/18 05:32 Dose: 300 mg Clopidogrel Bisulfate (Plavix) 75 mg PO DAILY [facility] Last Admin: 01/01/18 08:48 Dose: 75 mg Ceftriaxone Sodium 2 gm/ (Lidocaine HCl 4.2 ml) 0 gm IM ONETIME ONE Stop: 12/26/17 17:13 Last Admin: 12/26/17 17:27 Dose: 2 inj Dextrose/Water (Dextrose 50% In Water) 50 ml IVPUSH ASDIRECTED PRN PRN Reason: Hypoglycemia Docusate Sodium (Colace) 100 mg PO BID PRN PRN Reason: Constipation Enoxaparin Sodium (Lovenox) 40 mg SUBCUT DAILY [facility] Enoxaparin Sodium (Lovenox) 30 mg SUBCUT DAILY [facility] Last Admin: 01/01/18 08:56 Dose: 30 mg Famotidine (Pepcid) 20 mg PO BID PHILIP Famotidine (Pepcid) 20 mg PO DAILY [facility] Last Admin: 01/01/18 08:48 Dose: 20 mg Furosemide (Lasix) 80 mg PO BIDDIURETIC [facility] Last Admin: 12/27/17 08:02 Dose: Not Given Furosemide (Lasix) 40 mg IVPUSH ONETIME ONE Stop: 12/26/17 23:01 Last Admin: 12/26/17 23:38 Dose: 40 mg Furosemide (Lasix) 40 mg IVPUSH DAILY [facility] Last Admin: 01/01/18 08:59 Dose: 40 mg Hydralazine HCl (Apresoline) 10 mg IVPUSH Q4H PRN PRN Reason: Hypertension Hydralazine HCl (Apresoline) 20 mg IVPUSH Q6H PRN PRN Reason: Hypertension Ceftriaxone Sodium 2 gm/ (Sodium Chloride) 100 mls @ 200 mls/hr IV ONETIME ONE Stop: 12/26/17 16:35 Last Admin: 12/26/17 18:11 Dose: Not Given Lidocaine HCl (Xylocaine-Mpf 1%) Confirm Administered Dose 8 mls @ as directed .ROUTE .STK-MED ONE Stop: 12/26/17 17:38 Vancomycin HCl 2 gm/ Sodium (Chloride) 250 mls @ 125 mls/hr IV ONETIME ONE Stop: 12/26/17 22:59 Last Admin: 12/26/17 23:14 Dose: Not Given Furosemide 100 mg/ Sodium (Chloride) 100 mls @ 4 mls/hr IV ASDIRECTED [facility] Last Admin: 12/28/17 10:18 Dose: 4 mg/hr, 4 mls/hr Vancomycin HCl 1 gm/Vancomycin HCl 250 mg/ Sodium Chloride 250 mls @ 250 mls/ hr IV Q24H [facility] Last Admin: 12/28/17 21:49 Dose: 250 mls/hr Vancomycin HCl 1 gm/ Sodium (Chloride) 250 mls @ 250 mls/hr IV ONETIME ONE Stop: 12/26/17 23:29 Last Admin: 12/26/17 22:41 Dose: 250 mls/hr Vancomycin HCl 1 gm/ Sodium (Chloride) 250 mls @ 250 mls/hr IV ONETIME ONE Stop: 12/27/17 00:29 Last Admin: 12/27/17 00:14 Dose: 250 mls/hr Sodium Chloride (Normal Saline) 250 mls @ 500 mls/hr IV .BOLUS [facility] Stop: 12/27/17 18:00 Sodium Chloride (Normal Saline) 100 mls @ 60 mls/hr IV ASDIRECTED [facility] Stop: 12/27/17 16:00 Last Admin: 12/27/17 14:15 Dose: 60 mls/hr Piperacillin Sod/Tazobactam (Sod 4.5 gm/ Sodium Chloride) 100 mls @ 25 mls/hr IV Q8H [facility] Last Admin: 12/29/17 09:00 Dose: 25 mls/hr Piperacillin Sod/Tazobactam (Sod 4.5 gm/ Sodium Chloride) 100 mls @ 200 mls/hr IV ONETIME ONE Stop: 12/28/17 18:59 Last Admin: 12/28/17 18:56 Dose: 200 mls/hr Clindamycin Phosphate 900 mg/ (Sodium Chloride) 106 mls @ 100 mls/hr IV Q6H [facility] Stop: 12/30/17 12:31 Last Admin: 12/30/17 13:42 Dose: 100 mls/hr Meropenem 1 gm/ Sodium (Chloride) 100 mls @ 200 mls/hr IV Q8H [facility] Meropenem 500 mg/ Sodium (Chloride) 100 mls @ 200 mls/hr IV Q8H [facility] Last Admin: 01/01/18 05:28 Dose: 200 mls/hr Insulin Aspart (Novolog) 0 unit SUBCUT QIDACANDBED [facility]; Protocol Insulin Aspart (Novolog) 16 unit SUBCUT KAYLA [facility] Last Admin: 12/27/17 14:07 Dose: Not Given Insulin Aspart (Novolog) 28 unit SUBCUT PCDINNER [facility] Insulin Aspart (Novolog) 34 unit SUBCUT BRK [facility] Last Admin: 12/27/17 08:39 Dose: 34 units Insulin Aspart (Novolog) 0 unit SUBCUT QIDACANDBED [facility]; Protocol Last Admin: 01/01/18 08:52 Dose: 2 units Insulin Detemir (Levemir) 44 unit SUBCUT BID [facility] Last Admin: 12/27/17 08:38 Dose: 44 units Insulin Detemir (Levemir) 22 unit SUBCUT BID [facility] Last Admin: 01/01/18 08:52 Dose: 22 unit Iopamidol (Isovue-370 (76%)) 50 ml IVPUSH ONETIME ONE Stop: 12/27/17 13:48 Last Admin: 12/27/17 14:15 Dose: 50 ml Iopamidol (Isovue-370 (76%)) 100 ml IVPUSH ONETIME ONE Stop: 12/27/17 13:48 Last Admin: 12/27/17 14:15 Dose: 100 ml Isosorbide Mononitrate (Imdur) 30 mg PO DAILY [facility] Last Admin: 01/01/18 08:47 Dose: 30 mg Losartan Potassium (Cozaar) 12.5 mg PO DAILY [facility] Last Admin: 12/28/17 10:58 Dose: Not Given Losartan Potassium (Cozaar) 12.5 mg PO BEDTIME [facility] Last Admin: 12/31/17 20:55 Dose: Not Given Magnesium Hydroxide (Milk Of Magnesia) 30 ml PO Q12H PRN PRN Reason: Constipation Last Admin: 12/28/17 09:18 Dose: 30 ml Metolazone (Zaroxolyn) 2.5 mg PO MoWeFr@0700 [facility] Last Admin: 01/01/18 10:37 Dose: Not Given Metoprolol Tartrate (Lopressor) 25 mg PO BID [facility] Last Admin: 12/28/17 10:58 Dose: Not Given Metoprolol Tartrate (Lopressor) 25 mg PO Q12HR [facility] Last Admin: 01/01/18 08:51 Dose: Not Given Mineral Oil/White Petrolatum (Hydrocerin Crm) 0 gm TOP ASDIRECTED PRN PRN Reason: DRY SKIN Last Admin: 01/01/18 10:38 Dose: 1 applic Morphine Sulfate (Morphine) 2 mg IVPUSH Q2H PRN PRN Reason: Pain (severe 7-10) Stop: 12/27/17 20:08 Ondansetron HCl (Zofran Odt) 4 mg PO Q4H PRN PRN Reason: nausea, able to take PO Ondansetron HCl (Zofran) 4 mg IV Q4H PRN PRN Reason: Nausea/Vomiting Polyethylene Glycol (Miralax) 17 gm PO DAILY PRN PRN Reason: Constipation Potassium Chloride (Klor-Con M20) 20 meq PO BIDMEALS [facility] Last Admin: 12/27/17 17:47 Dose: 20 meq Potassium Chloride (Klor-Con M20) 20 meq PO BID@0800,1700 [facility] Last Admin: 01/01/18 08:51 Dose: 20 meq Saccharomyces Boulardii (Florastor) 250 mg PO BID [facility] Last Admin: 01/01/18 08:51 Dose: 250 mg Senna/Docusate Sodium (Senna Plus) 1 tab PO BID PRN PRN Reason: Constipation Silver Sulfadiazine (Silvadene 1% Cream 50 Gm) 0 gm TOP BID [facility] Last Admin: 12/26/17 23:13 Dose: Not Given Silver Sulfadiazine (Silvadene 1% Cream 50 Gm) 0 gm TOP BID PRN PRN Reason: varela Simvastatin (Zocor) 40 mg PO DAILY [facility] Last Admin: 01/01/18 08:48 Dose: 40 mg Sodium Chloride (Saline Flush) 10 ml FLUSH ASDIRECTED PRN PRN Reason: Keep Vein Open Last Admin: 12/27/17 14:15 Dose: 10 ml Sodium Chloride (Saline Flush) 10 ml FLUSH ONETIME ONE Stop: 12/27/17 13:48 Spironolactone (Aldactone) 25 mg PO QAM [facility] Last Admin: 01/01/18 08:48 Dose: 25 mg Tamsulosin HCl (Flomax) 0.4 mg PO DAILY [facility] Last Admin: 01/01/18 08:48 Dose: 0.4 mg Temazepam (Restoril) 7.5 mg PO BEDTIME PRN PRN Reason: Sleep Vancomycin HCl (Pharmacy To Dose - Vancomycin) 0 dose .XX ASDIRECTED PRN PRN Reason: RX TO DOSE VANCOMYCIN Vancomycin HCl (Vancocin) Confirm Administered Dose 2 gm .ROUTE .STK-MED ONE Stop: 12/26/17 22:06 Last Admin: 12/27/17 00:21 Dose: Not Given
[2018-01-01] MEDS: Isosorbide Mononitrate 30 MG Tab.ER PO SCH (08:47)
[2018-01-01] MEDS: Clopidogrel 75 MG Tab PO SCH (08:48)
[2018-01-01] MEDS: Spironolactone 25 MG Tab PO SCH (08:48)
[2018-01-01] MEDS: Famotidine 20 MG Tab PO SCH (08:48)
[2018-01-01] MEDS: Simvastatin 40 MG Tab PO SCH (08:48)
[2018-01-01] MEDS: Allopurinol 300 MG Tab PO SCH (08:48)
[2018-01-01] MEDS: Cholecalciferol (Vitamin D3) 1,000 Unit Tab PO SCH (08:48)
[2018-01-01] MEDS: Tamsulosin 0.4 MG Cap.ER PO SCH (08:48)
[2018-01-01] MEDS: Saccharomyces Boulardii (Probiotic) 250 MG Cap PO SCH (08:51)
[2018-01-01] MEDS: Metoprolol Tartrate 25 MG Tab PO SCH (08:51)
[2018-01-01] MEDS: Potassium Chloride 20 MEQ Tab.ER PO SCH (08:51)
[2018-01-01] MEDS: Insulin Aspart 100 Units/ML 3 ML Pen SUBCUT SCH (08:52)
[2018-01-01] MEDS: Insulin Detemir 100 Units/ML 3 ML Pen SUBCUT SCH (08:52)
[2018-01-01 08:54] VITALS: BP 100/74
[2018-01-01] MEDS: Enoxaparin 30 MG/0.3 ML Syringe SUBCUT SCH (08:56)
[2018-01-01] MEDS: Furosemide 40 MG/4 ML VIAL IVPUSH SCH (08:59)
[2018-01-01] MEDS: Metolazone 2.5 MG Tab PO SCH (10:37)
[2018-01-01] MEDS: Mineral Oil/White Petrolatum Crm 113 GM Jar TOP PRN (10:38)
== END 2018-01-01 11:02 | DRG 603 ==
LOC: JD.ED 13:50 → UNDOADMIN 18:51 → JD.ICU 18:51 → JD.MS 18:58
PROVIDERS: ADMIT Internal Medicine Cardiovascular Disease; ATTEND Internal Medicine Cardiovascular Disease
PROC: 02HV33Z Insertion of Infusion Device into Superior Vena Cava, Percutaneous Approach (ICD-10-PCS; principal; 2017-12-30)
DX: L03.116 Cellulitis of left lower limb (principal); I50.32 Chronic diastolic (congestive) heart failure; I48.92 Unspecified atrial flutter; Z68.41 Body mass index [BMI] 40.0-44.9, adult; I13.0 Hypertensive heart and chronic kidney disease with heart failure and stage 1 through stage 4 chronic kidney disease, or unspecified chronic kidney disease; I11.0 Hypertensive heart disease with heart failure; E78.00 Pure hypercholesterolemia, unspecified; E11.9 Type 2 diabetes mellitus without complications; L03.115 Cellulitis of right lower limb; E11.42 Type 2 diabetes mellitus with diabetic polyneuropathy; E66.01 Morbid (severe) obesity due to excess calories; I87.8 Other specified disorders of veins; Z66 Do not resuscitate; E11.22 Type 2 diabetes mellitus with diabetic chronic kidney disease; N18.3 Chronic kidney disease, stage 3 (moderate); E11.65 Type 2 diabetes mellitus with hyperglycemia; G47.33 Obstructive sleep apnea (adult) (pediatric); M10.9 Gout, unspecified; I25.10 Atherosclerotic heart disease of native coronary artery without angina pectoris; E78.5 Hyperlipidemia, unspecified; I48.91 Unspecified atrial fibrillation; N40.0 Benign prostatic hyperplasia without lower urinary tract symptoms; R74.0 Nonspecific elevation of levels of transaminase and lactic acid dehydrogenase [LDH]; Z91.14 Patient's other noncompliance with medication regimen; Z79.4 Long term (current) use of insulin; Z86.73 Personal history of transient ischemic attack (TIA), and cerebral infarction without residual deficits; Z88.8 Allergy status to other drugs, medicaments and biological substances; Z79.899 Other long term (current) drug therapy; Z79.02 Long term (current) use of antithrombotics/antiplatelets; Z95.1 Presence of aortocoronary bypass graft
CPT/HCPCS: 36415; 71045; 80053; 83605; 83735; 83880; 84484; 85025; 85610; 86140; 87040 ×2; 93005; 96372; 99285; J0696; J2001; J7050; 36569; 75635; 75635-26; 80048; 80061; 81001; 82962; 87070; 87077; 87186; 87641; 93306; 93970; 93970-26; 97110-GP; 97116-GP; 97162-GP; 97165-GO; 97530-GO; 97530-GP; A9270-GY; J1650; J1815-GY; J1940; J2185; J2543; J3370; J7030; Q9967

== ENCOUNTER 2018-07-12 03:34 | Emergency (ER) | payer MEDICARE ==
[2018-07-12 03:41] VITALS: BP 159/79
[2018-07-12] MEDS ORDERED: Oxymetazoline 0.05% Nasal Spray 15 ML Bottle NAS ONE (03:49)
--- NOTE | 2018-07-12 04:18 | EDM.PDOC ---
ED HPI GENERAL MEDICAL PROBLEM - General Chief Complaint: ENT Problem Stated Complaint: NOSEBLEED Time Seen by Provider: 07/12/18 03:45 Source of Information: Reports: Patient, Family History Limitations: Reports: No Limitations - History of Present Illness INITIAL COMMENTS - FREE TEXT/NARRATIVE: The patient presents with a nose bleed that started 2 hours ago. He has no trauma to his nose. He bent over to get something and it started. He says many years ago when he was 16 he had some trouble with nose bleeds. He is on aleve and plavix. He does have a history of high blood pressure. Onset: Sudden Duration: Hour(s): (2) Severity: Moderate Improves with: Reports: None Worsens with: Reports: None Associated Symptoms: Reports: No Other Symptoms - Related Data Allergies Allergy/AdvReac Type Severity Reaction Status Date / Time lisinopril [From Prinivil] Allergy Cannot Verified 12/26/17 21:00 Remember metformin Allergy Cannot Verified 12/26/17 21:00 Remember amiodarone AdvReac Hallucinati Verified 12/27/17 13:53 ons Home Meds: Home Meds Allopurinol [Zyloprim] 300 mg PO DAILY 10/18/14 [History] Clopidogrel [Plavix] 75 mg PO DAILY 10/18/14 [History] Naproxen Sodium [Aleve] 220 mg PO DAILY PRN 10/18/14 [History] Potassium Chloride [Klor-Con] 20 meq PO BID 10/18/14 [History] Tamsulosin HCl [Flomax] 0.4 mg PO DAILY 10/18/14 [History] Nitroglycerin [Nitrostat] 0.4 mg SL Q5M PRN 11/02/14 [History] Sennosides/Docusate Sodium [Senna-Docusate Sodium Tablet] 2 tab PO BEDTIME 11/02 [History] Cholecalciferol (Vitamin D3) [Vitamin D3] 1,000 unit PO DAILY 06/27/17 [History] Isosorbide Mononitrate [Imdur] 30 mg PO DAILY 06/27/17 [History] Simvastatin [Zocor] 40 mg PO DAILY 06/27/17 [History] Spironolactone [Aldactone] 25 mg PO QAM 06/27/17 [History] Polyethylene Glycol 3350 [Miralax] 17 gm PO Q72H 12/26/17 [History] Silver Sulfadiazine [Silvadene 1% Cream 20 GM] 1 applic TOP BID PRN 12/26/17 [ History] Clindamycin HCl [Cleocin] 300 mg PO Q6H 7 Days #28 cap 01/01/18 [Rx] Furosemide [Lasix] 40 mg PO DAILY #1 tablet 01/01/18 [Rx] Insulin Aspart [Novolog] See Protocol SQ QIDACANDBED #1 ml 01/01/18 [Rx] Insulin Detemir [Levemir] 22 unit SUBCUT BID #1 pen 01/01/18 [Rx] Losartan [Cozaar] 12.5 mg PO DAILY #0 01/01/18 [Rx] Meropenem [Merrem] 500 mg IV Q8H 7 Days #21 sdv 01/01/18 [Rx] Metoprolol Tartrate [Lopressor] 25 mg PO BID #0 01/01/18 [Rx] Saccharomyces Boulardii [Florastor] 250 mg PO BID #30 cap 01/01/18 [Rx] Past Medical History HEENT History: Reports: Hard of Hearing, Impaired Vision, Other (See Below) Other HEENT History: left ear hard of hearing, wears glasses, has hearing aids and dentures Cardiovascular History: Reports: Bypass, CAD, High Cholesterol, Hypertension, Other (See Below) Other Cardiovascular History: chest pain/costochondral pain, diastolic dysfunction Respiratory History: Reports: Sleep Apnea, Other (See Below) Other Respiratory History: has cpap at home-doesn't wear Gastrointestinal History: Reports: Gastritis, Hemorrhoids Genitourinary History: Reports: BPH, Other (See Below) Other Genitourinary History: hematuria PHONE REPRESENTATIVE History: Reports: None Musculoskeletal History: Reports: Gout Neurological History: Reports: CVA Psychiatric History: Reports: None Endocrine/Metabolic History: Reports: Diabetes, Type II Hematologic History: Reports: None Immunologic History: Reports: None Oncologic (Cancer) History: Reports: None Dermatologic History: - Infectious Disease History Infectious Disease History: Reports: Chicken Pox, Measles, Mumps - Past Surgical History Head Surgeries/Procedures: Reports: None HEENT Surgical History: Reports: Cataract Surgery Cardiovascular Surgical History: Reports: Coronary Artery Bypass Respiratory Surgical History: Reports: None GI Surgical History: Reports: Colonoscopy, Hernia Repair/Other Male Surgical History: Reports: None Endocrine Surgical History: Reports: None Neurological Surgical History: Reports: None Musculoskeletal Surgical History: Reports: Other (See Below) Other Musculoskeletal Surgeries/Procedures:: knee arthroscopy x 2 Dermatological Surgical History: Reports: Skin Graft Social & Family History - Family History Family Medical History: Noncontributory - Caffeine Use Caffeine Use: Reports: Coffee, Soda ED ROS ENT - Review of Systems Review Of Systems: See Below Constitutional: Reports: No Symptoms HEENT: Reports: Nosebleed Respiratory: Reports: No Symptoms Cardiovascular: Reports: No Symptoms Endocrine: Reports: No Symptoms GI/Abdominal: Reports: No Symptoms : Reports: No Symptoms Musculoskeletal: Reports: No Symptoms ED EXAM, ENT - Physical Exam Exam: See Below Exam Limited By: No Limitations General Appearance: Alert, No Apparent Distress Ears: Normal External Exam Nose: Active Bleeding (From the right anterior septum) Mouth/Throat: Normal Inspection ED ENT PROCEDURES - Epistaxis Procedure Indication: Epistaxis Recent anticoagulants/antiplatlets: Yes Uncontrolled HTN: No Site of bleeding: Right Nare Clearing of clots: Suction Topical Meds: Phenylephrine Ice pack to area: No Chemical cautery: Silver Nitrate Topical Anterior Packing: Petrolatum Guaze Strip Complications: No Course - Vital Signs Last Recorded V/S: Last Vital Signs Temp 97.9 F 07/12/18 03:38 Pulse 62 07/12/18 03:38 Resp 16 07/12/18 03:38 BP 159/79 H 07/12/18 03:38 Pulse Ox 100 07/12/18 03:38 - Orders/Labs/Meds Labs: Laboratory Tests 07/12/18 Range/Units 04:47 WBC 7.89 (4.23-9.07) K/mm3 RBC 3.95 L (4.63-6.08) M/mm3 Hgb 11.9 L (13.7-17.5) gm/L Hct 35.2 L (40.1-51.0) % MCV 89.1 (79.0-92.2) fl MCH 30.1 (25.7-32.2) pg MCHC 33.8 (32.2-35.5) g/dl RDW Std Deviation 51.4 H (35.1-43.9) fL Plt Count 155 L (163-337) K/mm3 MPV 9.7 (9.4-12.3) fl Neut % (Auto) 55.7 (34.0-67.9) % Lymph % (Auto) 28.8 (21.8-53.1) % [place] % (Auto) 10.8 (5.3-12.2) % Eos % (Auto) 3.8 (0.8-7.0) Baso % (Auto) 0.8 (0.1-1.2) % Neut # (Auto) 4.40 (1.78-5.38) K/mm3 Lymph # (Auto) 2.27 (1.32-3.57) K/mm3 [place] # (Auto) 0.85 H (0.30-0.82) K/mm3 Eos # (Auto) 0.30 (0.04-0.54) K/mm3 Baso # (Auto) 0.06 (0.01-0.08) K/mm3 Meds: Medications Discontinued Medications Generic Name Dose Route Start Last Admin Trade Name Freq PRN Reason Stop Dose Admin Oxymetazoline HCl 1 ml 07/12/18 03:49 Afrin Original 0.05% Nasal [place] DANIA 07/12/18 03:50 ONETIME ONE - Re-Assessments/Exams Free Text/Narrative Re-Assessment/Exam: 07/12/18 04:17 I tried to use silver nitrate to cauterize the bleeding but it did not work so I packed it with petroleum gauze. That seemed to stop it. I will check a CBC on him. 07/12/18 05:08 His Hgb was a little low at 11.9. His platelets were a little low at 155. He has no further bleeding. I will discharge him home. I will put him on some keflex and have the packing in for at lest till Saturday. Departure - Departure Time of Disposition: 05:10 Disposition: Home, Self-Care 01 Condition: Good Clinical Impression: Epistaxis - Discharge Information *PRESCRIPTION DRUG MONITORING PROGRAM REVIEWED*: No *COPY OF PRESCRIPTION DRUG MONITORING REPORT IN PATIENT RAINA: No Referrals: PCP,Not In Area [Primary Care Provider] - Forms: ED Department Discharge Additional Instructions: Take the keflex 3 times per day for 5 days. Leave the packing in until Saturday. Go to your clinic or the ER to have it removed. Please return if you are worse.
== END 2018-07-12 05:21 | disposition home or self-care (01) ==
LOC: JD.ED 03:34
DX: R04.0 Epistaxis (principal); I25.10 Atherosclerotic heart disease of native coronary artery without angina pectoris; Z95.5 Presence of coronary angioplasty implant and graft; I10 Essential (primary) hypertension; E78.00 Pure hypercholesterolemia, unspecified; E11.9 Type 2 diabetes mellitus without complications; Z88.8 Allergy status to other drugs, medicaments and biological substances; Z79.01 Long term (current) use of anticoagulants; Z79.899 Other long term (current) drug therapy; Z86.73 Personal history of transient ischemic attack (TIA), and cerebral infarction without residual deficits; Z79.4 Long term (current) use of insulin
CPT/HCPCS: 30901; 36415; 85025; 99283; A9270

== ENCOUNTER 2021-10-05 01:02 | Emergency (ER) | payer MEDICARE ==
[2021-10-05] MEDS ORDERED: HYDROmorphone 0.5 MG/0.5 ML Syringe IVPUSH ONE (01:25)
[2021-10-05] MEDS ORDERED: Sodium Chloride 0.9% 1,000 ML IV SCH (03:30)
[2021-10-05] MEDS ORDERED: Iopamidol 755 Mg/ML 100 ML Bottle IVPUSH ONE (03:38)
[2021-10-05] MEDS ORDERED: Sodium Chloride 0.9% 10 ML SDV FLUSH ONE (03:38)
[2021-10-05] MEDS ORDERED: Sodium Chloride 0.9% 100 ML IV SCH (03:45)
[2021-10-05 05:18] VITALS: BP 147/75; PULSE 75
[2021-10-05] MEDS ORDERED: traMADol 50 MG Tab PO ONE (05:33)
[2021-10-06] MEDS ORDERED: Acetaminophen 325 MG Tab PO PRN (19:09)
[2021-10-06] MEDS ORDERED: HYDROmorphone 0.5 MG/0.5 ML Syringe IVPUSH PRN (19:09)
[2021-10-06] MEDS ORDERED: traMADol 50 MG Tab PO PRN (19:21)
[2021-10-06] MEDS ORDERED: Metoprolol Tartrate 25 MG Tab PO SCH (21:00)
[2021-10-06] MEDS ORDERED: Potassium Chloride 20 MEQ Tab.ER PO SCH (21:00)
[2021-10-06] MEDS ORDERED: Insulin Glargine,Human Rec. Analog 100 Units/ML 3 ML Pen SUBCUT SCH (21:00)
[2021-10-07] MEDS ORDERED: Insulin Lispro 100 Unit/ML 3 ML KwikPen SUBCUT SCH (07:00)
[2021-10-07] MEDS ORDERED: Tamsulosin 0.4 MG Cap.ER PO SCH (09:00)
[2021-10-07] MEDS ORDERED: Isosorbide Mononitrate 30 MG Tab.ER PO SCH (09:00)
[2021-10-07] MEDS ORDERED: Losartan 25 MG Tab PO SCH (09:00)
[2021-10-07] MEDS ORDERED: Cholecalciferol (Vitamin D3) 25 MCG Tab PO SCH (09:00)
[2021-10-07] MEDS ORDERED: Furosemide 40 MG Tab PO SCH (09:00)
[2021-10-07] MEDS ORDERED: Allopurinol 300 MG Tab PO SCH (09:00)
[2021-10-07] MEDS ORDERED: Enoxaparin 40 MG/0.4 ML Syringe SUBCUT SCH (09:00)
[2021-10-07] MEDS ORDERED: Clopidogrel 75 MG Tab PO SCH (09:00)
[2021-10-07] MEDS ORDERED: atorvaSTATin 20 MG Tab PO SCH (09:00)
[2021-10-09] MEDS ORDERED: Polyethylene Glycol 3350 Powder 17 GM Packet PO SCH (08:00)
== END 2021-10-05 05:20 | disposition home or self-care (01) ==
LOC: JD.ED 01:02
DX: S22.048A Other fracture of fourth thoracic vertebra, initial encounter for closed fracture (principal); S22.058A Other fracture of T5-T6 vertebra, initial encounter for closed fracture; I25.10 Atherosclerotic heart disease of native coronary artery without angina pectoris; E78.00 Pure hypercholesterolemia, unspecified; I10 Essential (primary) hypertension; E11.9 Type 2 diabetes mellitus without complications; N40.0 Benign prostatic hyperplasia without lower urinary tract symptoms; M10.9 Gout, unspecified; Z86.73 Personal history of transient ischemic attack (TIA), and cerebral infarction without residual deficits; Z88.8 Allergy status to other drugs, medicaments and biological substances; Z79.899 Other long term (current) drug therapy; Z79.4 Long term (current) use of insulin; Z79.02 Long term (current) use of antithrombotics/antiplatelets; W19.XXXA Unspecified fall, initial encounter; Y92.009 Unspecified place in unspecified non-institutional (private) residence as the place of occurrence of the external cause
CPT/HCPCS: 36415; 70450; 71275; 72125; 72128; 80053; 83735; 84484; 85025; 85379; 93005; 96374; 99284; J1170; J7030; Q9967

== ENCOUNTER 2021-10-06 16:10 | Inpatient (IN) | payer MEDICARE ==
[2021-10-06] MEDS ORDERED: HYDROmorphone 0.5 MG/0.5 ML Syringe IVPUSH ONE (17:39)
[2021-10-06] MEDS ORDERED: Sodium Chloride 0.9% 10 ML Syringe FLUSH PRN (17:39)
[2021-10-06 18:32] LABS: CORONAVIRUS COVID-19 NAA NEGATIVE (NEGATIVE)
[2021-10-07] MEDS ORDERED: traZODone 50 MG Tab PO PRN (00:45)
[2021-10-07] MEDS ORDERED: LORazepam 2 MG/ML SDV IVPUSH PRN (00:47)
[2021-10-07] MEDS ORDERED: HYDROmorphone 0.5 MG/0.5 ML Syringe IVPUSH PRN (00:50)
[2021-10-07 01:22] LABS: HEMOGLOBIN A1C 8.5 %
[2021-10-07] MEDS: Insulin Lispro 100 Unit/ML 3 ML KwikPen SUBCUT SCH ×4 (09:20→20:43)
[2021-10-07] MEDS: Insulin Glargine,Human Rec. Analog 100 Units/ML 3 ML Pen SUBCUT SCH ×3 (09:21→20:45)
[2021-10-07] MEDS ORDERED: Acetaminophen 325 MG Tab PO PRN (11:05)
[2021-10-07] MEDS ORDERED: traMADol 50 MG Tab PO PRN (12:26)
[2021-10-07] MEDS ORDERED: Silver Sulfadiazine 1% Crm 50 GM Tube TOP PRN (12:26)
[2021-10-07] MEDS: Losartan 25 MG Tab PO SCH (13:08)
[2021-10-07] MEDS: Isosorbide Mononitrate 30 MG Tab.ER PO SCH (13:10)
[2021-10-07] MEDS: Metoprolol Tartrate 25 MG Tab PO SCH ×2 (13:11→20:42)
[2021-10-07] MEDS: Allopurinol 300 MG Tab PO SCH (13:12)
[2021-10-07] MEDS: Clopidogrel 75 MG Tab PO SCH (13:12)
[2021-10-07] MEDS: Tamsulosin 0.4 MG Cap.ER PO SCH (13:12)
[2021-10-07] MEDS ORDERED: Insulin Lispro 100 Unit/ML 3 ML KwikPen SUBCUT ONE (18:57)
[2021-10-08] MEDS: Insulin Lispro 100 Unit/ML 3 ML KwikPen SUBCUT SCH ×4 (08:20→20:25)
[2021-10-08] MEDS: Torsemide 20 MG Tab PO SCH (08:22)
[2021-10-08] MEDS: Spironolactone 25 MG Tab PO SCH (08:23)
[2021-10-08] MEDS: Allopurinol 300 MG Tab PO SCH (08:23)
[2021-10-08] MEDS: Isosorbide Mononitrate 30 MG Tab.ER PO SCH (08:23)
[2021-10-08] MEDS: Furosemide 40 MG Tab PO SCH (08:23)
[2021-10-08] MEDS: Losartan 25 MG Tab PO SCH (08:24)
[2021-10-08] MEDS: Tamsulosin 0.4 MG Cap.ER PO SCH (08:24)
[2021-10-08] MEDS: Metoprolol Tartrate 25 MG Tab PO SCH ×2 (08:24→20:24)
[2021-10-08] MEDS: Clopidogrel 75 MG Tab PO SCH (08:25)
[2021-10-08] MEDS: Insulin Glargine,Human Rec. Analog 100 Units/ML 3 ML Pen SUBCUT SCH ×2 (08:25→20:27)
[2021-10-08] MEDS: Heparin Sodium 5,000 Units/ML Vial SUBCUT SCH ×2 (14:21→20:30)
[2021-10-09] MEDS: Heparin Sodium 5,000 Units/ML Vial SUBCUT SCH ×3 (05:56→21:22)
[2021-10-09] MEDS: Torsemide 20 MG Tab PO SCH (09:24)
[2021-10-09] MEDS: Isosorbide Mononitrate 30 MG Tab.ER PO SCH (09:24)
[2021-10-09] MEDS: Tamsulosin 0.4 MG Cap.ER PO SCH (09:24)
[2021-10-09] MEDS: Metoprolol Tartrate 25 MG Tab PO SCH ×2 (09:25→20:07)
[2021-10-09] MEDS: Spironolactone 25 MG Tab PO SCH (09:25)
[2021-10-09] MEDS: Allopurinol 300 MG Tab PO SCH (09:25)
[2021-10-09] MEDS: Losartan 25 MG Tab PO SCH (09:26)
[2021-10-09] MEDS: Insulin Lispro 100 Unit/ML 3 ML KwikPen SUBCUT SCH ×4 (09:27→20:08)
[2021-10-09] MEDS: Furosemide 40 MG Tab PO SCH (09:27)
[2021-10-09] MEDS: Clopidogrel 75 MG Tab PO SCH (09:27)
[2021-10-09] MEDS: Insulin Glargine,Human Rec. Analog 100 Units/ML 3 ML Pen SUBCUT SCH (20:12)
[2021-10-10] MEDS: Heparin Sodium 5,000 Units/ML Vial SUBCUT SCH (06:41)
[2021-10-10] MEDS: Spironolactone 25 MG Tab PO SCH (08:52)
[2021-10-10] MEDS: Insulin Lispro 100 Unit/ML 3 ML KwikPen SUBCUT SCH (08:52)
[2021-10-10] MEDS: Losartan 25 MG Tab PO SCH (08:53)
[2021-10-10] MEDS: Tamsulosin 0.4 MG Cap.ER PO SCH (08:53)
[2021-10-10] MEDS: Furosemide 40 MG Tab PO SCH (08:53)
[2021-10-10] MEDS: Clopidogrel 75 MG Tab PO SCH (08:53)
[2021-10-10] MEDS: Torsemide 20 MG Tab PO SCH (08:54)
[2021-10-10] MEDS: Isosorbide Mononitrate 30 MG Tab.ER PO SCH (08:54)
[2021-10-10] MEDS: Allopurinol 300 MG Tab PO SCH (08:54)
[2021-10-10 08:55] VITALS: BP 130/58; PULSE 56
[2021-10-10] MEDS: Metoprolol Tartrate 25 MG Tab PO SCH (08:55)
== END 2021-10-10 11:00 | DRG 91 ==
LOC: JD.ED 16:10 → JD.MS 19:09
PROVIDERS: ADMIT Pediatrics; ATTEND Pediatrics
DX: R29.6 Repeated falls (principal); I26.93 Single subsegmental thrombotic pulmonary embolism without acute cor pulmonale; Z68.41 Body mass index [BMI] 40.0-44.9, adult; I13.0 Hypertensive heart and chronic kidney disease with heart failure and stage 1 through stage 4 chronic kidney disease, or unspecified chronic kidney disease; R53.81 Other malaise; R62.7 Adult failure to thrive; I87.2 Venous insufficiency (chronic) (peripheral); Z20.822 Contact with and (suspected) exposure to COVID-19; I10 Essential (primary) hypertension; Z66 Do not resuscitate; N18.31 Chronic kidney disease, stage 3a; I25.10 Atherosclerotic heart disease of native coronary artery without angina pectoris; E11.9 Type 2 diabetes mellitus without complications; E66.01 Morbid (severe) obesity due to excess calories; G47.30 Sleep apnea, unspecified; E11.22 Type 2 diabetes mellitus with diabetic chronic kidney disease; E11.42 Type 2 diabetes mellitus with diabetic polyneuropathy; H54.7 Unspecified visual loss; E78.00 Pure hypercholesterolemia, unspecified; N40.0 Benign prostatic hyperplasia without lower urinary tract symptoms; M54.9 Dorsalgia, unspecified; G89.29 Other chronic pain; M10.9 Gout, unspecified; M19.90 Unspecified osteoarthritis, unspecified site; E55.9 Vitamin D deficiency, unspecified; M25.552 Pain in left hip; H91.93 Unspecified hearing loss, bilateral; I50.9 Heart failure, unspecified; S22.009D Unspecified fracture of unspecified thoracic vertebra, subsequent encounter for fracture with routine healing; I25.2 Old myocardial infarction; Z88.8 Allergy status to other drugs, medicaments and biological substances; Z79.899 Other long term (current) drug therapy; Z79.4 Long term (current) use of insulin; Z86.73 Personal history of transient ischemic attack (TIA), and cerebral infarction without residual deficits; Z63.6 Dependent relative needing care at home; Z95.1 Presence of aortocoronary bypass graft; Z79.02 Long term (current) use of antithrombotics/antiplatelets
CPT/HCPCS: 0240U; 36415; 71045; 72192; 80053; 82947; 83036; 83735; 83880; 84484; 85025; 85379; 85610; 85652; 85730; 93005; 96374; 97110; 97116; 97161; 97530; 99285; 93010; 99284; A9270-GY; J1170; J1644; J1815; J1815-GY; U0002

== ENCOUNTER 2022-01-22 06:56 | Inpatient (IN) | payer MEDICARE ==
[2022-01-22] MEDS ORDERED: Acetaminophen 325 MG Tab PO ONE (07:19)
[2022-01-22] MEDS ORDERED: Linezolid 600 MG in Premix Bag 1 BAG IV ONE (07:21)
[2022-01-22] MEDS ORDERED: Sodium Chloride 0.9% 1,000 ML IV SCH ×3 (07:30→16:00)
[2022-01-22 08:32] LABS: HEMOGLOBIN A1C 7.6 %
[2022-01-22] MEDS ORDERED: Acetaminophen/HYDROcodone 325-5 MG Tab PO PRN (15:39)
[2022-01-22] MEDS ORDERED: Ondansetron 4 MG/2 ML SDV IV PRN (15:39)
[2022-01-22] MEDS ORDERED: Polyethylene Glycol 3350 Powder 17 GM Packet PO PRN (15:39)
[2022-01-22] MEDS ORDERED: Nitroglycerin 0.4 MG Tab.SL SL PRN (15:43)
[2022-01-22] MEDS: cefTRIAXone 2 GM in Sodium Chloride 0.9% 100 ML IV SCH (17:15)
[2022-01-22] MEDS ORDERED: Vancomycin 1.75 GM in Sodium Chloride 0.9% 500 ML IV ONE (18:00)
[2022-01-22] MEDS: Insulin Lispro 100 Unit/ML 3 ML KwikPen SUBCUT SCH ×2 (19:54→21:51)
[2022-01-22] MEDS: Acetaminophen 325 MG Tab PO PRN (21:48)
[2022-01-22] MEDS: Potassium Chloride 20 MEQ Tab.ER PO SCH (21:49)
[2022-01-22] MEDS: Insulin Glargine,Human Rec. Analog 100 Units/ML 3 ML Pen SUBCUT SCH (21:49)
[2022-01-22] MEDS: Saccharomyces Boulardii (Probiotic) 250 MG Cap PO SCH (21:49)
[2022-01-22] MEDS: Enoxaparin 40 MG/0.4 ML Syringe SUBCUT SCH (21:59)
[2022-01-23] MEDS: Insulin Lispro 100 Unit/ML 3 ML KwikPen SUBCUT SCH ×4 (06:50→21:12)
[2022-01-23] MEDS: Acetaminophen 325 MG Tab PO PRN (08:36)
[2022-01-23] MEDS: Potassium Chloride 20 MEQ Tab.ER PO SCH ×2 (08:55→21:09)
[2022-01-23] MEDS: Cholecalciferol (Vitamin D3) 25 MCG Tab PO SCH (08:55)
[2022-01-23] MEDS: Enoxaparin 40 MG/0.4 ML Syringe SUBCUT SCH (08:55)
[2022-01-23] MEDS: Isosorbide Mononitrate 30 MG Tab.ER PO SCH (08:55)
[2022-01-23] MEDS: atorvaSTATin 20 MG Tab PO SCH (08:55)
[2022-01-23] MEDS: Clopidogrel 75 MG Tab PO SCH (08:55)
[2022-01-23] MEDS: Tamsulosin 0.4 MG Cap.ER PO SCH (08:56)
[2022-01-23] MEDS: Saccharomyces Boulardii (Probiotic) 250 MG Cap PO SCH ×2 (08:56→21:09)
[2022-01-23] MEDS: Insulin Glargine,Human Rec. Analog 100 Units/ML 3 ML Pen SUBCUT SCH ×2 (08:57→21:10)
[2022-01-23] MEDS ORDERED: Carbamide Peroxide 6.5% Otic Soln 15 ML Bottle EARBOTH SCH (09:00)
[2022-01-23] MEDS ORDERED: Allopurinol 300 MG Tab PO SCH (09:00)
[2022-01-23] MEDS: Gabapentin 300 MG Cap PO SCH ×2 (11:35→21:10)
[2022-01-23] MEDS: Sertraline 25 MG Tab PO SCH (12:19)
[2022-01-23] MEDS: traMADol 50 MG Tab PO PRN (13:20)
[2022-01-23] MEDS: cefTRIAXone 2 GM in Sodium Chloride 0.9% 100 ML IV SCH (16:56)
[2022-01-23] MEDS: Vancomycin 1 GM, Vancomycin 250 MG in Sodium Chloride 0.9% 250 ML IV SCH (17:34)
[2022-01-24] MEDS: Insulin Lispro 100 Unit/ML 3 ML KwikPen SUBCUT SCH ×4 (07:20→20:07)
[2022-01-24] MEDS: Isosorbide Mononitrate 30 MG Tab.ER PO SCH (08:43)
[2022-01-24] MEDS: Clopidogrel 75 MG Tab PO SCH (08:43)
[2022-01-24] MEDS: Potassium Chloride 20 MEQ Tab.ER PO SCH ×2 (08:43→20:06)
[2022-01-24] MEDS: Sertraline 25 MG Tab PO SCH (08:43)
[2022-01-24] MEDS: Gabapentin 300 MG Cap PO SCH ×2 (08:43→20:06)
[2022-01-24] MEDS: Tamsulosin 0.4 MG Cap.ER PO SCH (08:44)
[2022-01-24] MEDS: Cholecalciferol (Vitamin D3) 25 MCG Tab PO SCH (08:44)
[2022-01-24] MEDS: atorvaSTATin 20 MG Tab PO SCH (08:44)
[2022-01-24] MEDS: Insulin Glargine,Human Rec. Analog 100 Units/ML 3 ML Pen SUBCUT SCH ×2 (08:44→20:08)
[2022-01-24] MEDS: Saccharomyces Boulardii (Probiotic) 250 MG Cap PO SCH ×2 (08:44→20:05)
[2022-01-24] MEDS: Enoxaparin 40 MG/0.4 ML Syringe SUBCUT SCH (08:45)
[2022-01-24] MEDS: Acetaminophen 325 MG Tab PO PRN ×2 (10:24→20:06)
[2022-01-24] MEDS: Cefepime 2 GM in Sodium Chloride 0.9% 50 ML IV SCH ×2 (13:08→21:16)
[2022-01-24] MEDS: Vancomycin 1 GM, Vancomycin 250 MG in Sodium Chloride 0.9% 250 ML IV SCH (19:25)
[2022-01-25] MEDS: Cefepime 2 GM in Sodium Chloride 0.9% 50 ML IV SCH ×2 (04:23→15:13)
[2022-01-25] MEDS: Insulin Lispro 100 Unit/ML 3 ML KwikPen SUBCUT SCH ×4 (07:38→20:46)
[2022-01-25] MEDS: Sertraline 25 MG Tab PO SCH (09:16)
[2022-01-25] MEDS: Insulin Glargine,Human Rec. Analog 100 Units/ML 3 ML Pen SUBCUT SCH ×2 (09:16→20:46)
[2022-01-25] MEDS: Saccharomyces Boulardii (Probiotic) 250 MG Cap PO SCH ×2 (09:16→20:41)
[2022-01-25] MEDS: atorvaSTATin 20 MG Tab PO SCH (09:16)
[2022-01-25] MEDS: Isosorbide Mononitrate 30 MG Tab.ER PO SCH (09:16)
[2022-01-25] MEDS: Gabapentin 300 MG Cap PO SCH ×2 (09:17→20:42)
[2022-01-25] MEDS: Enoxaparin 40 MG/0.4 ML Syringe SUBCUT SCH (09:17)
[2022-01-25] MEDS: Tamsulosin 0.4 MG Cap.ER PO SCH (09:17)
[2022-01-25] MEDS: Clopidogrel 75 MG Tab PO SCH (09:17)
[2022-01-25] MEDS: Cholecalciferol (Vitamin D3) 25 MCG Tab PO SCH (09:17)
[2022-01-25] MEDS ORDERED: HYDROmorphone 0.5 MG/0.5 ML Syringe IVPUSH PRN (09:30)
[2022-01-25] MEDS: Acetaminophen 325 MG Tab PO PRN ×2 (11:28→20:41)
[2022-01-25] MEDS ORDERED: Sodium Chloride 0.9% 1,000 ML IV SCH (13:30)
[2022-01-25] MEDS ORDERED: Cefepime 2 GM Vial ONE (15:00)
[2022-01-25] MEDS: Torsemide 20 MG Tab PO SCH (17:54)
[2022-01-26] MEDS: Cefepime 2 GM in Sodium Chloride 0.9% 50 ML IV SCH ×2 (03:53→15:39)
[2022-01-26] MEDS: traMADol 50 MG Tab PO PRN ×2 (03:59→12:08)
[2022-01-26] MEDS: Insulin Lispro 100 Unit/ML 3 ML KwikPen SUBCUT SCH ×4 (08:00→21:51)
[2022-01-26] MEDS ORDERED: Torsemide 20 MG Tab PO SCH (08:00)
[2022-01-26] MEDS ORDERED: Losartan 25 MG Tab PO SCH (09:00)
[2022-01-26] MEDS ORDERED: Allopurinol 300 MG Tab PO SCH (09:00)
[2022-01-26] MEDS: Saccharomyces Boulardii (Probiotic) 250 MG Cap PO SCH ×2 (09:17→21:50)
[2022-01-26] MEDS: Tamsulosin 0.4 MG Cap.ER PO SCH (09:17)
[2022-01-26] MEDS: Sertraline 25 MG Tab PO SCH (09:18)
[2022-01-26] MEDS: Cholecalciferol (Vitamin D3) 25 MCG Tab PO SCH (09:19)
[2022-01-26] MEDS: Gabapentin 300 MG Cap PO SCH ×2 (09:19→21:50)
[2022-01-26] MEDS: atorvaSTATin 20 MG Tab PO SCH (09:19)
[2022-01-26] MEDS: Clopidogrel 75 MG Tab PO SCH (09:20)
[2022-01-26] MEDS: Potassium Chloride 20 MEQ Tab.ER PO SCH ×2 (09:20→21:50)
[2022-01-26] MEDS: Isosorbide Mononitrate 30 MG Tab.ER PO SCH (09:20)
[2022-01-26] MEDS: Enoxaparin 40 MG/0.4 ML Syringe SUBCUT SCH (09:22)
[2022-01-26] MEDS: Insulin Glargine,Human Rec. Analog 100 Units/ML 3 ML Pen SUBCUT SCH ×2 (09:22→21:50)
[2022-01-26] MEDS ORDERED: HYDROmorphone 0.5 MG/0.5 ML Syringe IVPUSH ONE (14:30)
[2022-01-26] MEDS: Torsemide 20 MG Tab PO SCH (17:45)
[2022-01-27 00:13] VITALS: BP 102/82; PULSE 68
== END 2022-01-26 23:43 | DRG 871 ==
LOC: JD.ED 06:56 → JD.MS 10:02 → JD.ED 16:05 → UNDOADMIN 17:01 → JD.MS 17:01 → UNDODISIN 01-26 23:43
PROVIDERS: ADMIT Internal Medicine; ATTEND Internal Medicine
PROC: 02HV33Z Insertion of Infusion Device into Superior Vena Cava, Percutaneous Approach (ICD-10-PCS; principal; 2022-01-25)
DX: A41.9 Sepsis, unspecified organism (principal); R65.21 Severe sepsis with septic shock; L03.116 Cellulitis of left lower limb; E11.65 Type 2 diabetes mellitus with hyperglycemia; I13.0 Hypertensive heart and chronic kidney disease with heart failure and stage 1 through stage 4 chronic kidney disease, or unspecified chronic kidney disease; I50.9 Heart failure, unspecified; N17.9 Acute kidney failure, unspecified; I11.0 Hypertensive heart disease with heart failure; I50.32 Chronic diastolic (congestive) heart failure; I48.20 Chronic atrial fibrillation, unspecified; Z68.41 Body mass index [BMI] 40.0-44.9, adult; E87.1 Hypo-osmolality and hyponatremia; I48.11 Longstanding persistent atrial fibrillation; L03.115 Cellulitis of right lower limb; I96 Gangrene, not elsewhere classified; N18.31 Chronic kidney disease, stage 3a; F32.A Depression, unspecified; M1A.9XX0 Chronic gout, unspecified, without tophus (tophi); Z20.822 Contact with and (suspected) exposure to COVID-19; Z66 Do not resuscitate; I25.10 Atherosclerotic heart disease of native coronary artery without angina pectoris; E78.5 Hyperlipidemia, unspecified; E78.00 Pure hypercholesterolemia, unspecified; G47.30 Sleep apnea, unspecified; N40.0 Benign prostatic hyperplasia without lower urinary tract symptoms; G89.29 Other chronic pain; M54.9 Dorsalgia, unspecified; M19.90 Unspecified osteoarthritis, unspecified site; E55.9 Vitamin D deficiency, unspecified; I95.9 Hypotension, unspecified; I87.8 Other specified disorders of veins; E88.09 Other disorders of plasma-protein metabolism, not elsewhere classified; E66.01 Morbid (severe) obesity due to excess calories; Z79.4 Long term (current) use of insulin; Z79.02 Long term (current) use of antithrombotics/antiplatelets; Z95.1 Presence of aortocoronary bypass graft; Z91.19 Patient's noncompliance with other medical treatment and regimen; Z86.73 Personal history of transient ischemic attack (TIA), and cerebral infarction without residual deficits; Z79.899 Other long term (current) drug therapy; Z88.8 Allergy status to other drugs, medicaments and biological substances
CPT/HCPCS: 36410; 36415; 36600; 71045; 71045-26; 73718-26-LT; 73718-26-RT; 73718-LT; 73718-RT; 76937; 80053; 80202; 82553; 82803; 82947; 83036; 83605; 83735; 83880; 84145; 84484; 85007; 85025; 85027; 85610; 85730; 86140; 87040; 87070; 87075; 87077; 87186; 87205; 87641; 92523-GN; 93005; 93010; 93306; 96361; 96365; 97162-GP; 97167-GO; 97530-GP; 97535-GO; 97597-GP; 99100; 99285; 99285-25; A9270-GY; J0692; J0696; J1170; J1650; J1815; J1815-GY; J2020; J3370; J7030; J7040; J7050; U0002

== ENCOUNTER 2022-03-12 14:45 | Inpatient (IN) | payer MEDICARE ==
[2022-03-12] MEDS ORDERED: Sodium Chloride 0.9% 10 ML Syringe FLUSH PRN (17:20)
[2022-03-12] MEDS ORDERED: cefTRIAXone 1 GM in Sodium Chloride 0.9% 100 ML IV ONE (19:54)
[2022-03-12] MEDS: Acetaminophen 325 MG Tab PO PRN (23:37)
[2022-03-13] MEDS ORDERED: Magnesium Sulfate/Water 2 GM in Premix Bag 1 BAG IV ONE (08:19)
[2022-03-13] MEDS ORDERED: Docusate Sodium 100 MG Cap PO PRN (08:20)
[2022-03-13] MEDS ORDERED: Ondansetron 4 MG/2 ML SDV IV PRN (08:20)
[2022-03-13] MEDS: Enoxaparin 40 MG/0.4 ML Syringe SUBCUT SCH (09:12)
[2022-03-13] MEDS ORDERED: Diclofenac Sodium 1% Gel 100 GM Tube TOP PRN (11:01)
[2022-03-13] MEDS: Acetaminophen 325 MG Tab PO PRN (11:01)
[2022-03-13] MEDS: Insulin Glargine,Human Rec. Analog 100 Units/ML 3 ML Pen SUBCUT SCH ×2 (11:57→20:32)
[2022-03-13] MEDS: Insulin Lispro 100 Unit/ML 3 ML KwikPen SUBCUT SCH ×3 (11:57→21:19)
[2022-03-13] MEDS: Lidocaine 4% 1 each Patch TOP SCH (11:58)
[2022-03-13] MEDS: Isosorbide Mononitrate 30 MG Tab.ER PO SCH (11:59)
[2022-03-13] MEDS: Allopurinol 300 MG Tab PO SCH (11:59)
[2022-03-13] MEDS: Metoprolol Tartrate 25 MG Tab PO SCH ×2 (12:02→21:19)
[2022-03-13] MEDS: Clopidogrel 75 MG Tab PO SCH (12:02)
[2022-03-13] MEDS: Cholecalciferol (Vitamin D3) 25 MCG Tab PO SCH (12:02)
[2022-03-13] MEDS: Gabapentin 300 MG Cap PO SCH ×2 (12:02→20:31)
[2022-03-13] MEDS: atorvaSTATin 20 MG Tab PO SCH (20:31)
[2022-03-13] MEDS: cefTRIAXone 1 GM in Sodium Chloride 0.9% 100 ML IV SCH (21:20)
[2022-03-14] MEDS: Insulin Lispro 100 Unit/ML 3 ML KwikPen SUBCUT SCH ×4 (08:08→21:17)
[2022-03-14] MEDS: Tamsulosin 0.4 MG Cap.ER PO SCH (08:20)
[2022-03-14] MEDS: Clopidogrel 75 MG Tab PO SCH (08:20)
[2022-03-14] MEDS: Pramipexole 0.25 MG Tab PO SCH (08:20)
[2022-03-14] MEDS: Allopurinol 300 MG Tab PO SCH (08:20)
[2022-03-14] MEDS: Gabapentin 300 MG Cap PO SCH ×2 (08:20→20:50)
[2022-03-14] MEDS: Torsemide 20 MG Tab PO SCH (08:20)
[2022-03-14] MEDS: Cholecalciferol (Vitamin D3) 25 MCG Tab PO SCH (08:20)
[2022-03-14] MEDS: Magnesium Oxide 400 MG Tab PO SCH (08:20)
[2022-03-14] MEDS: Isosorbide Mononitrate 30 MG Tab.ER PO SCH (08:21)
[2022-03-14] MEDS: Sertraline 50 MG Tab PO SCH (08:21)
[2022-03-14] MEDS: Metoprolol Tartrate 25 MG Tab PO SCH ×2 (08:24→20:50)
[2022-03-14] MEDS: Enoxaparin 40 MG/0.4 ML Syringe SUBCUT SCH (08:27)
[2022-03-14] MEDS: Insulin Glargine,Human Rec. Analog 100 Units/ML 3 ML Pen SUBCUT SCH ×2 (08:28→21:31)
[2022-03-14] MEDS: Lidocaine 4% 1 each Patch TOP SCH (08:35)
[2022-03-14] MEDS: cefTRIAXone 1 GM in Sodium Chloride 0.9% 100 ML IV SCH (20:50)
[2022-03-14] MEDS: atorvaSTATin 20 MG Tab PO SCH (20:51)
[2022-03-15] MEDS ORDERED: Magnesium Sulfate/Water 2 GM in Premix Bag 1 BAG IV ONE (07:30)
[2022-03-15] MEDS ORDERED: Levofloxacin/Dextrose 5%-Water 500 MG in Premix Bag 1 BAG IV SCH (08:15)
[2022-03-15] MEDS ORDERED: Iopamidol 612 MG/ML 100 ML Bottle IVPUSH ONE (08:46)
[2022-03-15] MEDS ORDERED: Sodium Chloride 0.9% 10 ML Syringe FLUSH PRN (08:46)
[2022-03-15] MEDS ORDERED: Magnesium Sulfate/Water 50 ML ONE (08:59)
[2022-03-15] MEDS ORDERED: Levofloxacin/Dextrose 5%-Water 100 ML IV ONE (08:59)
[2022-03-15] MEDS ORDERED: Sodium Chloride 0.9% 100 ML IV SCH (09:00)
[2022-03-15 09:05] VITALS: BP 122/49; PULSE 57
[2022-03-15] MEDS: Insulin Lispro 100 Unit/ML 3 ML KwikPen SUBCUT SCH ×2 (09:05→11:50)
[2022-03-15] MEDS: Enoxaparin 40 MG/0.4 ML Syringe SUBCUT SCH (09:08)
[2022-03-15] MEDS: Torsemide 20 MG Tab PO SCH (09:09)
[2022-03-15] MEDS: Tamsulosin 0.4 MG Cap.ER PO SCH (09:09)
[2022-03-15] MEDS: Isosorbide Mononitrate 30 MG Tab.ER PO SCH (09:09)
[2022-03-15] MEDS: Gabapentin 300 MG Cap PO SCH (09:09)
[2022-03-15] MEDS: Magnesium Oxide 400 MG Tab PO SCH (09:09)
[2022-03-15] MEDS: Metoprolol Tartrate 25 MG Tab PO SCH (09:09)
[2022-03-15] MEDS: Sertraline 50 MG Tab PO SCH (09:09)
[2022-03-15] MEDS: Pramipexole 0.25 MG Tab PO SCH (09:10)
[2022-03-15] MEDS: Allopurinol 300 MG Tab PO SCH (09:10)
[2022-03-15] MEDS: Clopidogrel 75 MG Tab PO SCH (09:10)
[2022-03-15] MEDS: Cholecalciferol (Vitamin D3) 25 MCG Tab PO SCH (09:10)
[2022-03-15] MEDS: Insulin Glargine,Human Rec. Analog 100 Units/ML 3 ML Pen SUBCUT SCH (09:21)
[2022-03-15] MEDS: Lidocaine 4% 1 each Patch TOP SCH (11:52)
[2022-03-15] MEDS ORDERED: cefTRIAXone 2 GM in Sodium Chloride 0.9% 100 ML IV SCH (20:00)
== END 2022-03-15 14:01 | DRG 638 ==
LOC: JD.ED 14:45 → JD.ICU 20:40 → JD.MS 03-15 12:17
PROVIDERS: ADMIT Internal Medicine Cardiovascular Disease; ATTEND Internal Medicine Cardiovascular Disease
DX: R62.7 Adult failure to thrive (principal); N39.0 Urinary tract infection, site not specified; E11.69 Type 2 diabetes mellitus with other specified complication; I12.9 Hypertensive chronic kidney disease with stage 1 through stage 4 chronic kidney disease, or unspecified chronic kidney disease; N18.9 Chronic kidney disease, unspecified; N30.01 Acute cystitis with hematuria; I13.0 Hypertensive heart and chronic kidney disease with heart failure and stage 1 through stage 4 chronic kidney disease, or unspecified chronic kidney disease; G47.30 Sleep apnea, unspecified; I50.32 Chronic diastolic (congestive) heart failure; M19.90 Unspecified osteoarthritis, unspecified site; M10.9 Gout, unspecified; M86.172 Other acute osteomyelitis, left ankle and foot; L97.419 Non-pressure chronic ulcer of right heel and midfoot with unspecified severity; Z20.822 Contact with and (suspected) exposure to COVID-19; E11.621 Type 2 diabetes mellitus with foot ulcer; L97.529 Non-pressure chronic ulcer of other part of left foot with unspecified severity; Z66 Do not resuscitate; M54.9 Dorsalgia, unspecified; G89.29 Other chronic pain; S81.802D Unspecified open wound, left lower leg, subsequent encounter; S81.801D Unspecified open wound, right lower leg, subsequent encounter; X58.XXXD Exposure to other specified factors, subsequent encounter; M15.9 Polyosteoarthritis, unspecified; L89.612 Pressure ulcer of right heel, stage 2; E55.9 Vitamin D deficiency, unspecified; N40.0 Benign prostatic hyperplasia without lower urinary tract symptoms; N18.32 Chronic kidney disease, stage 3b; M1A.9XX0 Chronic gout, unspecified, without tophus (tophi); E78.5 Hyperlipidemia, unspecified; I87.2 Venous insufficiency (chronic) (peripheral); E88.09 Other disorders of plasma-protein metabolism, not elsewhere classified; E83.42 Hypomagnesemia; I25.10 Atherosclerotic heart disease of native coronary artery without angina pectoris; H91.90 Unspecified hearing loss, unspecified ear; E11.22 Type 2 diabetes mellitus with diabetic chronic kidney disease; H54.7 Unspecified visual loss; E78.00 Pure hypercholesterolemia, unspecified; Z86.73 Personal history of transient ischemic attack (TIA), and cerebral infarction without residual deficits; Z95.1 Presence of aortocoronary bypass graft; Z88.8 Allergy status to other drugs, medicaments and biological substances; Z79.4 Long term (current) use of insulin; Z79.899 Other long term (current) drug therapy; Z79.02 Long term (current) use of antithrombotics/antiplatelets
CPT/HCPCS: 36415; 71045; 80053; 81001; 83605; 83735; 85025; 86140; 87040 ×2; 87070; 87075; 87086; 87205; 96365; 99285; J0696; J3490; U0002; 36410; 73700-26-LT; 73700-LT; 80048; 82947; 87077; 87186; 87641; 97110-GO; 97110-GP; 97116-GP; 97162-GP; 97166-GO; 97530-GO; 97597-GP; 99100; 99223; 99233; 99239; 99284; A9270-GY; J1650; J1815; J1815-GY; J1956; J3475